=== PATIENT | male | born 1975 | race Caucasian/White ===

== ENCOUNTER 2021-03-16 05:48 | Day surgery (SDC) | payer BC ==
[2021-03-16] MEDS ORDERED: BUPIVACAINE 0.5% VIAL IJ ONE (06:36)
[2021-03-16] MEDS ORDERED: XYLOCAINE 1% HCL 20 ML MDV ONE (06:36)
[2021-03-16] MEDS ORDERED: Lactated Ringers 1,000 ML IV ONE (06:51)
[2021-03-16] MEDS ORDERED: Lactated Ringers 1,000 ML IV SCH (07:00)
[2021-03-16] MEDS ORDERED: CEFAZOLIN 2 GM-D5W BAG** 2 GM/50 ML ML IV ONE (07:55)
[2021-03-16 09:04] VITALS: BP 153/100; PULSE 71; O2SAT 98
--- NOTE | 2021-03-16 09:20 | XRAY ---
Indication: Right 2nd metatarsal osteotomy. Intraoperative fluoroscopy provided for 12 seconds. 3 digital spot images submitted for interpretation ultimately demonstrates osteotomy distal shaft 2nd metatarsal. Correlate with intraoperative findings/report.
--- NOTE | 2021-03-16 09:33 | XRAY ---
12 seconds fluoroscopy time in surgery for osteotomy of the second metatarsal.
--- NOTE | 2021-03-19 10:29 | OP ---
SURGERY DATE/TIME: 03/16/2021 0802 PREOPERATIVE DIAGNOSES: 1) Diabetic foot ulceration. 2) Chronic pressure ulceration stage II. 3) Venous insufficiency. 4) Localized edema. POSTOPERATIVE DIAGNOSES: 1) Diabetic foot ulceration. 2) Chronic pressure ulceration stage II. 3) Venous insufficiency. 4) Localized edema. PROCEDURES: 1) Second floating metatarsal osteotomy of the right foot. 2) Application of Unna boot right lower extremity. 3) Debridement to the level of the subcutaneous tissue less than 20 sq/cm surface area. SURGEON: Naveed Alfaro DPM. BUILDING TRADES INSTRUCTOR: None. ANESTHESIA: Local. HEMOSTASIS: Pressure dressing. ESTIMATED BLOOD LOSS: Less than 3 cc. MATERIALS: 3-0 Nylon and an Unna boot. INJECTABLES: 20 cc of 1:1 mixture of 1% lidocaine plain and 0.5% bupivacaine plain injected in a metatarsal block-type fashion to the second metatarsal. INDICATION FOR SURGERY: Yeyo is a very pleasant 45-year-old male who has been dealing with a diabetic foot ulceration for approximately over one year at this time. The patient has grown frustrated with conservative care. Secondary to his neuropathy he is able to keep the pressure off the front of his foot when ambulating as well as the elongated second metatarsal. The patient wished for more aggressive measures on return to my clinic after a year of treating this conservatively with variable results having closed down prison and then opening right back up within the subsequent months. The patient has grown frustrated with conservative care and wishes to proceed with a procedure that is a bit more aggressive than what we have tried in the past. The patient is neuropathic and wished to proceed so long as he can continue to work following the procedure which was amenable given the patient's circumstances. The patient understands all risks, benefits and complications of the procedure all of which were specifically discussed with him that there is an 85% chance in literature demonstrating wound healing following metatarsal osteotomies with submetatarsal as well as a 50% chance of the bone healing in the favored position. The patient understands all of the benefits and risks of the procedure and wishes to proceed. DESCRIPTION OF PROCEDURE AND FINDINGS: The patient is brought into the OR and placed on the OR table in the supine position. At this time attention is directed to the right lower extremity where 20 cc of a 1:1 mixture of 1% lidocaine plain and 0.5% bupivacaine plain injected in a second metatarsal block-type fashion. At this time, the right foot was then prepped and draped in the typical sterile fashion utilizing Betadine and the lower extremity was lowered onto the surgical field. At this time, attention was directed to the wound where predebridement the measurements were 1.2 x 2.0 x 0.4. A combination of 15 blade, curette and rongeurs were utilized to debride the ulceration on the plantar aspect of the second metatarsal of the right foot this was deemed to be adequate and free of any necrosis or infection at that time. Postoperative measurements were taken at that time demonstrating new measurements of 1.6 x 2.3 x 0.7. At this time, attention is directed to the dorsal aspect of the foot where fluoroscopy was utilized to identify the surgical neck of the second metatarsal. At this time, a stab incision was made and a sagittal saw was introduced at this time perpendicular to the longitudinal axis of the bone. Sagittal saw was utilized to make a cut through the surgical neck and this was tested by dorsiflexion and plantarflexion the second metatarsal head at the front of the foot, which was then mobilized. At this time, the surgical incision was then coapted utilizing 3-0 Nylon in a horizontal mattress-type fashion. The right foot was cleansed and a dressing consisting of Betadine, Adaptic, 4x4, Kerlix and Coban were applied to the right lower extremity. The patient was provided an Unna boot for ambulation prior to leaving the OR secondary to the patient's venous insufficiency and localized edema. The patient handled the procedure without complication and was returned to the same day surgery with vital signs stable and vascular status intact. The patient handled the procedure without complication and was returned to the same day surgery with vital signs stable and vascular status intact. Postoperative orders as indicated in the patient's discharge chart.
== END 2021-03-16 09:25 | disposition home or self-care (01) ==
LOC: SDC 05:48
PROVIDERS: ATTEND Podiatrist Foot & Ankle Surgery
DX: E11.621 Type 2 diabetes mellitus with foot ulcer (principal); L89.892 Pressure ulcer of other site, stage 2; I87.2 Venous insufficiency (chronic) (peripheral); R60.9 Edema, unspecified; Z79.899 Other long term (current) drug therapy; Z79.4 Long term (current) use of insulin
CPT/HCPCS: 11402; 28306; 29580; 73630; 76000; 82947; J0690

== ENCOUNTER 2021-06-13 09:13 | Day surgery (SDC) | payer BC ==
[2021-06-13] MEDS ORDERED: BUPIVACAINE 0.5% VIAL IJ ONE (10:45)
[2021-06-13] MEDS ORDERED: Lactated Ringers 1,000 ML IV ONE (11:17)
[2021-06-13] MEDS ORDERED: DIPRIVAN 200 MG/20 ML IV ONE ×2 (11:25→11:32)
--- NOTE | 2021-06-13 12:42 | XRAY ---
Indication: Bilateral L4-S1 MBB. Intraoperative fluoroscopy provided for 21 seconds. Single digital spot image submitted for interpretation demonstrates posterior needle tips projecting over the expected left and right L4-S1 nerve roots. Correlate with intraoperative findings/report.
--- NOTE | 2021-06-13 12:47 | XRAY ---
21 seconds fluoroscopy time ins surgery for bilateral L4-S1 MBB.
== END 2021-06-13 11:53 | disposition home or self-care (01) ==
LOC: SDC-PAIN 09:13
PROVIDERS: ATTEND Psychiatry & Neurology Pain Medicine
DX: M47.816 Spondylosis without myelopathy or radiculopathy, lumbar region (principal); E11.9 Type 2 diabetes mellitus without complications; I10 Essential (primary) hypertension; Z79.899 Other long term (current) drug therapy
CPT/HCPCS: 64493; 64494; 72020; 77002; 82947; J2704

== ENCOUNTER 2022-02-20 09:51 | Day surgery (SDC) | payer BC ==
[2022-02-20] MEDS ORDERED: BUPIVACAINE 0.5% VIAL IJ ONE (09:52)
[2022-02-20] MEDS ORDERED: DIPRIVAN 200 MG/20 ML IV ONE (11:38)
[2022-02-20] MEDS ORDERED: Ketamine HCl 50 MG/ML ONE (11:49)
[2022-02-20] MEDS ORDERED: Lactated Ringers 1,000 ML IV ONE (11:54)
--- NOTE | 2022-02-20 13:16 | XRAY ---
Indication: Bilateral L4-S1 MBB. Intraoperative fluoroscopy provided for 13 seconds. Single digital spot image submitted for interpretation demonstrates posterior needle tips projecting over the expected left and right L4-S1 nerve roots. Correlate with intraoperative findings/report.
--- NOTE | 2022-02-20 14:28 | XRAY ---
13 seconds of fluoroscopy was used in surgery for a bilateral L4-S1 MBB.
== END 2022-02-20 12:15 | disposition home or self-care (01) ==
LOC: SDC-PAIN 09:51
PROVIDERS: ATTEND Psychiatry & Neurology Pain Medicine
DX: M47.816 Spondylosis without myelopathy or radiculopathy, lumbar region (principal); E11.9 Type 2 diabetes mellitus without complications; Z79.899 Other long term (current) drug therapy
CPT/HCPCS: 64493; 64494; 72020; 77002; 82947; J2704

== ENCOUNTER 2022-03-21 08:23 | Day surgery (SDC) | payer BC ==
[2022-03-21] MEDS ORDERED: LIDOCAINE HCL 1% 50 MG/5 ML VL PF IJ ONE (08:24)
[2022-03-21] MEDS ORDERED: Depo-Medrol 40 MG/ML IM ONE (08:24)
[2022-03-21] MEDS ORDERED: BUPIVACAINE 0.5% VIAL IJ ONE (08:24)
[2022-03-21] MEDS ORDERED: DIPRIVAN 200 MG/20 ML IV ONE (09:46)
[2022-03-21] MEDS ORDERED: Lactated Ringers 1,000 ML IV ONE (10:30)
--- NOTE | 2022-03-21 11:57 | XRAY ---
Indication: Right L4-S1 RFA. Intraoperative fluoroscopy provided for 21 seconds. 4 digital spot image submitted for interpretation demonstrates posterior needle tips projecting over the expected right L4-S1 nerve roots. Correlate with intraoperative findings/report.
--- NOTE | 2022-03-21 12:40 | XRAY ---
21 seconds fluoroscopy time in surgery for right L4-S1 RFA.
== END 2022-03-21 10:15 | disposition home or self-care (01) ==
LOC: SDC-PAIN 08:23
PROVIDERS: ATTEND Psychiatry & Neurology Pain Medicine
DX: M47.816 Spondylosis without myelopathy or radiculopathy, lumbar region (principal); E11.9 Type 2 diabetes mellitus without complications; Z79.899 Other long term (current) drug therapy
CPT/HCPCS: 64635; 64636; 72100; 77002; 82947; J1030; J2001; J2704

== ENCOUNTER 2022-03-27 08:18 | Day surgery (SDC) | payer BC ==
[2022-03-27] MEDS ORDERED: DIPRIVAN 200 MG/20 ML IV ONE (09:51)
--- NOTE | 2022-03-27 10:34 | XRAY ---
Indication: Left L4-S1 RFA. Intraoperative fluoroscopy provided for 21 seconds. 3 digital spot image submitted for interpretation demonstrates posterior needle tips projecting over the expected left L4-S1 nerve roots. Correlate with intraoperative findings/report.
--- NOTE | 2022-03-27 10:46 | XRAY ---
21 seconds of fluoroscopy was used in surgery for a left L4-S1 RFA.
[2022-03-27] MEDS ORDERED: Lactated Ringers 1,000 ML IV ONE (12:50)
== END 2022-03-27 10:30 | disposition home or self-care (01) ==
LOC: SDC-PAIN 08:18
PROVIDERS: ATTEND Psychiatry & Neurology Pain Medicine
DX: M47.816 Spondylosis without myelopathy or radiculopathy, lumbar region (principal); E11.9 Type 2 diabetes mellitus without complications; Z79.899 Other long term (current) drug therapy
CPT/HCPCS: 64635; 64636; 72100; 77002; 82947; J2704

== ENCOUNTER 2022-11-03 17:58 | Inpatient (IN) | payer BC ==
[2022-11-03] MEDS ORDERED: Sodium Chloride 0.9% 1000 ML 1,000 ML IV STA (19:22)
[2022-11-03] MEDS ORDERED: Sodium Chloride 0.9% 1000 ML 1,000 ML ONE (19:29)
[2022-11-03] MEDS: TYLENOL EXTRA STRENGTH 500 MG PO PRN (19:32)
[2022-11-03 19:45] LABS: Appearance Clear (Clear); Bacteria None Seen /HPF (None Seen); Bilirubin Negative (Negative); Blood Negative (Negative); Epithelial Cells None Seen /HPF (None Seen); Glucose, Urine >=1000 mg/dL (Negative); Hyaline Casts NONE SEEN /LPF (0-2); Ketones Negative (Negative); Leukocyte Esterase Negative (Negative); Nitrite Negative (Negative); Ph 5.5 (4.6-8.0); Protein,Urine Dip Negative (Negative); RBC 0-2 /HPF (0-5); Specific Gravity 1.025 (1.005-1.030); Urobilinogen 0.2 mg/dL (0.2); WBC 0-2 /HPF (0-5)
[2022-11-03 20:08] LABS: BASOPHIL % 0.5 % (0.0-0.4); Basophil (Absolute #) 0.08 x10^3/uL (0-0.4); Eosinophil (Absolute #) 0 x10^3/uL (0-0.5); Hematocrit 52.3 % (42-50); Hemoglobin 16.7 g/dL (12.5-18.0); IMMATURE GRAN # 0.05 x10^3u/L (0.00-0.03); IMMATURE GRAN % 0.3 % (0.00-0.4); Lymphocyte (Absolute #) 0.79 x10^3/uL (1.0-4.6); Lymphocytes % 4.7 % (24.0-44.0); Mean Cell Volume 87.3 fL (78-100); Mean Corpuscular Hemoglobin 27.9 pg (26-32); Mean Corpuscular Hgb Concent. 31.9 g/dL (32-36); Mean Platelet Volume 10.4 fL (7.5-11.0); Monocyte (Absolute #) 1.03 x10^3/uL (0.0-1.3); Monocytes % 6.2 % (0.0-12.0); Neutrophil % 88.3 % (36.0-66.0); Platelet Count 216 x10^3/uL (150-450); Red Blood Count 5.99 x10^6/uL (4.1-5.6); Red Cell Distribution Width 14.3 % (11.5-14.0); White Blood Count 16.7 x10^3/uL (4.0-10.5)
[2022-11-03 20:11] LABS: ADD URINE CULTURE? NO (NO)
--- NOTE | 2022-11-03 20:11 | ERPHSYRPT ---
- History of Present Illness Time Seen by Provider: 11/03/22 19:32 Source: patient Exam Limitations: no limitations Patient Subjective Stated Complaint: Fever Triage Nursing Assessment: Patient ambulated back to ED and transferred self to bed. Patient A+O X3. Patient's skin flushed, hot and dry. Patient complains of fever, headache and alexy leg/feet pain that started this am. Patient complains of headache and alexy leg/feet pain 10/10. Patient's RLE noted to be red, warm and swollen. Patient was recently treated with cellulitis. Physician History: 47 years old male with history of diabetes mellitus, diabetic ulcer right big toe under care of podiatry here, was recently treated for cellulitis presented in the ER with increasing redness and swelling with pain right lower extremity for last couple of days and today started to have a fever. Patient reports moderate to severe sharp pain right leg with no significant relieving factors and aggravated with palpation and movements. Does report generalized weakness f atigue and tiredness. Quality: painful Severity: severe Associated Symptoms: fever, rash, swelling/mass/lumps Allergies/Adverse Reactions: morphine Adverse Reaction (Severe, Verified 11/03/22 19:06) aggressive/angry Home Medications: Atenolol 50 mg [Tenormin 50 mg] 50 mg PO DAILY 03/15/21 [History] Insulin Aspart (Niacinamide) [Fiasp 100 Unit/ml Flextouch] 52 unit SQ BID 03/15/21 [History] Insulin Glargine,Hum.rec.anlog [Basaglar Kwikpen U-100] 60 unit SQ HS 03/15/21 [History] Insulin Glargine,Hum.rec.anlog [Basaglar Kwikpen U-100] 70 unit SQ BREAKFAST [History] Losartan/Hydrochlorothiazide [Losartan-Hctz 50-12.5 mg Tab] 1 each PO DAILY 03/15/21 [History] Hx Influenza Vaccination/Date Given: No Hx Pneumococcal Vaccination/Date Given: No Immunizations Up to Date: Yes Travel Risk - International Travel Have you traveled outside of the country in past 3 weeks: No - Coronavirus Screening Are you exhibiting any of the following symptoms?: No Close contact with a COVID-19 positive Pt in past 14-21 Days: No - Vaccine Status Have you recieved a Covid-19 vaccination: No - Review of Systems Constitutional: Fever, Chills, Fatigue, Weakness Eyes: No Symptoms Ears, Nose, & Throat: No Symptoms Respiratory: No Symptoms Cardiac: No Symptoms Abdominal/Gastrointestinal: No Symptoms Genitourinary Symptoms: No Symptoms Musculoskeletal: Arthralgias Skin: Cellulitis, Rash, Skin Lesions Neurological: Headache Psychological: No Symptoms Hematologic/Lymphatic: No Symptoms Immunological/Allergic: No Symptoms - Past Medical History Pertinent Past Medical History: Yes Neurological History: No Pertinent History ENT History: No Pertinent History Cardiac History: Hypertension Respiratory History: Sleep Apnea Endocrine Medical History: Diabetes Type I Musculoskeletal History: Degenerative Disk Disease, Other GI Medical History: No Pertinent History History: No Pertinent History Psycho-Social History: No Pertinent History Male Reproductive Disorders: No Pertinent History Other Medical History: SX HX: BACK SURGERY - ABLATION IN LOWER BACK (VIA PAIN [facility] DR. BILLS) - Past Surgical History Past Surgical History: Yes Neuro Surgical History: No Pertinent History Cardiac: No Pertinent History Respiratory: No Pertinent History Gastrointestinal: Hernia Repair Genitourinary: Other Musculoskeletal: No Pertinent History Male Surgical History: Vasectomy Other Surgical History: lithotripsy,kidney stones removal - Social History Smoking Status: Former smoker Exposure to second hand smoke: No Drug Use: none Patient Lives Alone: No - Nursing Vital Signs Nursing Vital Signs: Initial Vital Signs Temperature 102.4 F 11/03/22 19:07 Pulse Rate 123 H 11/03/22 19:07 Respiratory Rate 20 11/03/22 19:07 Blood Pressure 140/75 11/03/22 19:07 O2 Sat by Pulse Oximetry 97 11/03/22 19:07 Pain Scale Pain Intensity 4 - Physical Exam General Appearance: no apparent distress, alert Eye Exam: PERRL/EOMI Ears, Nose, Throat Exam: normal ENT inspection Neck Exam: normal inspection, full range of motion Respiratory Exam: normal breath sounds, lungs clear Cardiovascular Exam: normal heart sounds, tachycardia Gastrointestinal/Abdomen Exam: soft, normal bowel sounds, No tenderness Back Exam: normal inspection, normal range of motion Extremity Exam: normal range of motion, inflammation (Diffuse swelling right ankle to knee. Warm and tender. 2 x 2 cm nonhealing diabetic ulcer at plantar aspect of big toe.Swelling is more on the anterior aspect. No tightness or excruciating pain in the calf.), swelling Skin Exam: normal color SpO2 Interpretation: normal SpO2: 97 O2 Delivery: Room Air - Course EKG Interpreted by Me: RATE, Sinus Tach, NORMAL AXIS, NORMAL INTERVALS, Non- specific ST Changes Ordered Tests: Active Orders 24 hr Category Date Time Status EKG-ER Only STAT Care 11/03/22 19:24 Active IV Insertion STAT Care 11/03/22 19:24 Active CHEST 1 VIEW (PORTABLE) Stat Exams 11/03/22 19:22 Taken VENOUS UNILAT/LIMITED EXTREMIT [US] Stat Exams 11/03/22 20:31 Taken BLOOD CULTURE Stat Lab 11/03/22 19:18 Received CBC W DIFF Stat Lab 11/03/22 19:18 Completed CMP Stat Lab 11/03/22 19:18 Completed Lactic Acid Stat Lab 11/03/22 19:45 Completed PROCALCITONIN Stat Lab 11/03/22 19:18 Completed TROPONIN Q4H Lab 11/03/22 19:18 Completed TROPONIN Q4H Lab 11/03/22 22:03 Completed UA W/RFX UR CULTURE Stat Lab 11/03/22 19:25 Completed Medication Summary Generic Name Dose Route Start Last Admin Trade Name Freq PRN Reason Stop Dose Admin Acetaminophen 1,000 mg 11/03/22 19:22 11/03/22 19:32 Acetaminophen 500 Mg Tablet PO 12/03/22 19:21 1,000 mg Q4H PRN PRN Administration HEADACHE Discontinued Medications Generic Name Dose Route Start Last Admin Trade Name Freq PRN Reason Stop Dose Admin Hydromorphone HCl 1 mg 11/03/22 21:33 11/03/22 22:24 Hydromorphone 1 Mg/1ml Inj IV 11/03/22 21:34 1 mg STAT ONE Administration Hydromorphone HCl Confirm 11/03/22 22:19 Hydromorphone 1 Mg/1ml Inj Administered 11/03/22 22:20 Dose 1 mg .ROUTE .STK-MED ONE Sodium Chloride 1,000 mls @ 999 mls/hr 11/03/22 19:22 11/03/22 21:20 Sodium Chloride 0.9% 1000 Ml IV 11/03/22 20:22 Infused .Q1H1M STA Infusion Sodium Chloride Confirm 11/03/22 19:29 Sodium Chloride 0.9% 1000 Ml Administered 11/03/22 19:30 Dose 1,000 mls @ ud .ROUTE .STK-MED ONE Piperacillin Sod/Tazobactam 100 mls @ 200 mls/hr 11/03/22 21:32 11/03/22 22:24 Sod 3.375 gm/ Sodium Chloride IV 11/03/22 22:01 200 mls/hr STAT ONE Administration Clindamycin HCl/Dextrose 600 mg in 50 mls @ 100 mls/hr 11/03/22 21:34 Clindamycin-D5w 600 Mg/50 Ml IV 11/03/22 22:03 STAT STA Sodium Chloride Confirm 11/03/22 22:20 Sodium Chloride 100ml Mini-Bag Plus Administered 11/03/22 22:21 Dose 100 mls @ ud IV .STK-MED ONE Ketorolac Tromethamine 30 mg 11/03/22 22:23 11/03/22 22:25 Ketorolac Tromethamine 30 Mg/Ml Inj IV 11/03/22 22:24 30 mg STAT ONE Administration Ketorolac Tromethamine Confirm 11/03/22 22:24 Ketorolac Tromethamine 30 Mg/Ml Inj Administered 11/03/22 22:25 Dose 30 mg .ROUTE .STK-MED ONE Ondansetron HCl 4 mg 11/03/22 21:33 11/03/22 22:23 Ondansetron Hcl 4 Mg/2 Ml Vial IV 11/03/22 21:34 4 mg STAT ONE Administration Ondansetron HCl Confirm 11/03/22 22:18 Ondansetron Hcl 4 Mg/2 Ml Vial Administered 11/03/22 22:19 Dose 4 mg .ROUTE .STK-MED ONE Piperacillin Sod/Tazobactam Sod Confirm 11/03/22 22:19 Piperacillin/Tazobactam Sodium 3.375 Gm Vial Administered 11/03/22 22:20 Dose 3.375 gm IV .STK-MED ONE Lab/Rad Data: Laboratory Result Diagrams 11/03/22 19:18 11/03/22 19:18 Laboratory Results 11/03/22 11/03/22 11/03/22 Range/Units 22:03 19:45 19:25 WBC (4.0-10.5) x10^3/uL RBC (4.1-5.6) x10^6/uL Hgb (12.5-18.0) g/dL Hct (42-50) % MCV (78-100) fL MCH (26-32) pg MCHC (32-36) g/dL RDW (11.5-14.0) % Plt Count (150-450) x10^3/uL MPV (7.5-11.0) fL Gran % (36.0-66.0) % Immature Gran % (Auto) (0.00-0.4) % Nucleat RBC Rel Count (0.00-0.1) % Eos # (Auto) (0-0.5) x10^3/uL Immature Gran # (Auto) (0.00-0.03) x10^3u/L Absolute Lymphs (auto) (1.0-4.6) x10^3/uL Absolute Monos (auto) (0.0-1.3) x10^3/uL Absolute Nucleated RBC (0.00-0.01) x10^3u/L Lymphocytes % (24.0-44.0) % Monocytes % (0.0-12.0) % Eosinophils % (0.00-5.0) % Basophils % (0.0-0.4) % Absolute Granulocytes (1.4-6.9) x10^3/uL Basophils # (0-0.4) x10^3/uL Sodium (137-145) mmol/L Potassium (3.5-5.1) mmol/L Chloride (98-107) mmol/L Carbon Dioxide (22-30) mmol/L Anion Gap (5-15) MEQ/L BUN (9-20) mg/dL Creatinine (0.66-1.25) mg/dL Estimated GFR ML/MIN Glucose (74-106) mg/dL Lactic Acid 2.1 H (0.4-2.0) Calcium (8.4-10.2) mg/dL Total Bilirubin (0.2-1.3) mg/dL AST (17-59) U/L ALT (0-50) U/L Alkaline Phosphatase (38-126) U/L Troponin I < 0.012 (0.000-0.034) ng/mL Serum Total Protein (6.3-8.2) g/dL Albumin (3.5-5.0) g/dL Procalcitonin (0.030-0.080) ng/mL Urine Color Yellow (Yellow) Urine Appearance Clear (Clear) Urine pH 5.5 (4.6-8.0) Ur Specific [place] 1.025 (1.005-1.030) Urine Protein Negative (Negative) Urine Glucose (UA) >=1000 A (Negative) mg/dL Urine Ketones Negative (Negative) Urine Blood Negative (Negative) Urine Nitrite Negative (Negative) Urine Bilirubin Negative (Negative) Urine Urobilinogen 0.2 (0.2) mg/dL Ur Leukocyte Esterase Negative (Negative) U Hyaline Cast (Auto) NONE SEEN (0-2) /LPF Urine Microscopic RBC 0-2 (0-5) /HPF Urine Microscopic WBC 0-2 (0-5) /HPF Ur Epithelial Cells None Seen (None Seen) /HPF Urine Bacteria None Seen (None Seen) /HPF Urine Culture Reflexed NO (NO) 11/03/22 11/03/22 11/03/22 Range/Units 19:18 19:18 19:18 WBC 16.7 H (4.0-10.5) x10^3/uL RBC 5.99 H (4.1-5.6) x10^6/uL Hgb 16.7 (12.5-18.0) g/dL Hct 52.3 H (42-50) % MCV 87.3 (78-100) fL MCH 27.9 (26-32) pg MCHC 31.9 L (32-36) g/dL RDW 14.3 H (11.5-14.0) % Plt Count 216 (150-450) x10^3/uL MPV 10.4 (7.5-11.0) fL Gran % 88.3 H (36.0-66.0) % Immature Gran % (Auto) 0.3 (0.00-0.4) % Nucleat RBC Rel Count 0.0 (0.00-0.1) % Eos # (Auto) 0 (0-0.5) x10^3/uL Immature Gran # (Auto) 0.05 H (0.00-0.03) x10^3u/L Absolute Lymphs (auto) 0.79 L (1.0-4.6) x10^3/uL Absolute Monos (auto) 1.03 (0.0-1.3) x10^3/uL Absolute Nucleated RBC 0.00 (0.00-0.01) x10^3u/L Lymphocytes % 4.7 L (24.0-44.0) % Monocytes % 6.2 (0.0-12.0) % Eosinophils % 0.0 (0.00-5.0) % Basophils % 0.5 (0.0-0.4) % Absolute Granulocytes 14.70 H (1.4-6.9) x10^3/uL Basophils # 0.08 (0-0.4) x10^3/uL Sodium 137 (137-145) mmol/L Potassium 4.1 (3.5-5.1) mmol/L Chloride 97 L (98-107) mmol/L Carbon Dioxide 25 (22-30) mmol/L Anion Gap 19.3 H (5-15) MEQ/L BUN 20 (9-20) mg/dL Creatinine 1.50 H (0.66-1.25) mg/dL Estimated GFR 53.5 ML/MIN Glucose 212 H (74-106) mg/dL Lactic Acid (0.4-2.0) Calcium 9.8 (8.4-10.2) mg/dL Total Bilirubin 0.80 (0.2-1.3) mg/dL AST 37 (17-59) U/L ALT 47 (0-50) U/L Alkaline Phosphatase 76 (38-126) U/L Troponin I < 0.012 (0.000-0.034) ng/mL Serum Total Protein 9.3 H (6.3-8.2) g/dL Albumin 4.6 (3.5-5.0) g/dL Procalcitonin 0.252 H (0.030-0.080) ng/mL Urine Color (Yellow) Urine Appearance (Clear) Urine pH (4.6-8.0) Ur Specific [place] (1.005-1.030) Urine Protein (Negative) Urine Glucose (UA) (Negative) mg/dL Urine Ketones (Negative) Urine Blood (Negative) Urine Nitrite (Negative) Urine Bilirubin (Negative) Urine Urobilinogen (0.2) mg/dL Ur Leukocyte Esterase (Negative) U Hyaline Cast (Auto) (0-2) /LPF Urine Microscopic RBC (0-5) /HPF Urine Microscopic WBC (0-5) /HPF Ur Epithelial Cells (None Seen) /HPF Urine Bacteria (None Seen) /HPF Urine Culture Reflexed (NO) - Progress Progress: improved, pain not gone completely Progress Note: 11/03/22 20:10 47 years old male with history of diabetes mellitus, diabetic ulcer right big toe under care of podiatry here, was recently treated for cellulitis presented in the ER with increasing redness and swelling with pain right lower extremity for last couple of days and today started to have a fever. Patient reports moderate to severe sharp pain right leg with no significant relieving factors and aggravated with palpation and movements. Does report generalized weakness fatigue and tiredness. Given symptomatic treatment along with fluids. I believe patient has cellulit is. Will rule out DVT. Started on broad-spectrum antibiotics. 11/03/22 22:52 Patient work-up showed white count of 16, lactate of 2.1 with procalcitonin of 1.25. Ruled out DVT per preliminary report, official report is pending. Has mild worsening of renal function with a baseline around 1.0 and today is 1.5. We will continue with hydration. Patient still have temperature of 101 on repeated evaluation after Tylenol and will give one-time dose of Toradol to bring it down. I have discussed with Dr. Samson at 10:50 PM, reviewed history, work-up, agreed with admission. I have discussed the results of work-up with patient and family who understand and agree with it. Discussed with Dr.: Other Will see patient in: hospital (observation) Counseled pt/family regarding: lab results, diagnosis, rad results Medical Desision Making - Independent Historian Additional History obtained from: Spouse - Discussion of managment Care discussed with:: hospitalist (Dr. Hernandez [id number]) Reviewed:: Test results Agreed on:: Treatment plan, place in obs Will see patient: in hospital - Diagnostic Testing Diagnostic test were ordered, analyzed, and reviewed by me: Yes Radiological Interpretation: Interpreted by me, Reviewed by me - Risk of complications The pt has a high risk of morbidity or mortality based on: Decision regarding hospitilization or escalation of hosp level of care - Departure Departure Disposition: Observation Clinical Impression: Cellulitis of right lower extremity, Diabetic ulcer of foot associated with diabetes mellitus due to underlying condition, limited to breakdown of skin, Sepsis, FOREST (acute kidney injury) Condition: Stable Critical Care Time: No Referrals: LISBETH PARK MD [Primary Care Provider] - Follow up/PCP as directed
[2022-11-03 20:39] LABS: ALBUMIN 4.6 g/dL (3.5-5.0); ANION GAP 19.3 MEQ/L (5-15); BILIRUBIN,TOTAL 0.8 mg/dL (0.2-1.3); Calcium 9.8 mg/dL (8.4-10.2); Creatinine 1 1.5 mg/dL (0.66-1.25); EST GLOMERULAR FILTRATION RATE 53.5 ML/MIN; PROCALCITONIN 0.252 ng/mL (0.030-0.080); Potassium 4.1 mmol/L (3.5-5.1); Total Protein 9.3 g/dL (6.3-8.2)
[2022-11-03] MEDS ORDERED: PIPERACILLIN/TAZOBACTAM 3.375 GM in Sodium Chloride 100ML MINI-BAG PLUS 100 ML IV ONE (21:32)
[2022-11-03] MEDS ORDERED: Hydromorphone 1 mg/ml Injection IV ONE (21:33)
[2022-11-03] MEDS ORDERED: Zofran 4 MG/2 ML VIAL IV ONE (21:33)
[2022-11-03] MEDS ORDERED: CLINDAMYCIN-D5W 600 MG/50 ML*** 600 MG/50 ML BAG IV STA (21:34)
[2022-11-03] MEDS ORDERED: Zofran 4 MG/2 ML VIAL ONE (22:18)
[2022-11-03] MEDS ORDERED: PIPERACILLIN/TAZOBACTAM IV ONE (22:19)
[2022-11-03] MEDS ORDERED: Hydromorphone 1 mg/ml Injection ONE (22:19)
[2022-11-03] MEDS ORDERED: Sodium Chloride 100ML MINI-BAG PLUS 100 ML IV ONE (22:20)
[2022-11-03] MEDS ORDERED: TORAdol 30 mg Injection IV ONE (22:23)
[2022-11-03] MEDS ORDERED: TORAdol 30 mg Injection ONE (22:24)
[2022-11-03] MEDS ORDERED: CLINDAMYCIN-D5W 600 MG/50 ML*** 600 MG/50 ML BAG IV ONE (23:45)
[2022-11-04] MEDS ORDERED: Sodium Chloride 0.9% 1000 ML 1,000 ML IV SCH (00:36)
[2022-11-04] MEDS ORDERED: DUONEB 0.5-3 MG/3 ml Neb IH PRN (00:36)
[2022-11-04] MEDS ORDERED: Zofran 4 MG/2 ML VIAL IV PRN (00:36)
[2022-11-04] MEDS ORDERED: TYLENOL 325 MG PO PRN (00:36)
[2022-11-04] MEDS ORDERED: VANCOMYCIN 1.5 GRAM/300 ML BAG 1.5 GM/300 ML PIGGYBACK IV ONE (02:00)
[2022-11-04] MEDS ORDERED: VANCOCIN INJECTION*** 1 GM in Sodium Chloride 0.9% 250 ML 250 ML IV SCH (02:00)
[2022-11-04] MEDS ORDERED: APRESOLINE 20 MG/ML INJ IV PRN (02:10)
--- NOTE | 2022-11-04 02:19 | PCM.HP ---
History of Present Illness - Chief Complaint Chief Complaint: Cellulitis right lower extremity, he FOREST, sepsis Date: 11/04/22 History of Present Illness: This is a 47-year-old male admitted for treatment of cellulitis. He has past medical history of hypertension, morbid obesity, EARL on NIV, diabetes, diabetic ulcer of his right great toe followed by podiatry for which he receives weekly debridements. He presented to the ED this evening for evaluation of increasing redness and swelling and pain in the right lower extremity with associated fever that was present when he woke up this morning. . On arrival he was febrile 102.4, heart rate 123, blood pressure 140/75. Labs significant for WBC 16, hemoglobin 16, platelets 216, creatinine 1.5 (1.May) UA positive for greater than 1000 glucose procalcitonin 0.252. Preliminary report for lower extremity Doppler was negative. He was given Dilaudid, 1 L crystalloid, Zosyn, clindamycin. - Review of Systems Constitutional: Fever Eyes: No Symptoms Ears, Nose, & Throat: No Symptoms Respiratory: No Symptoms Cardiac: No Symptoms Abdominal/Gastrointestinal: No Symptoms Genitourinary Symptoms: No Symptoms Musculoskeletal: No Symptoms Skin: Cellulitis Neurological: No Symptoms Endocrine: No Symptoms Medications & Allergies Home Medications: Home Medication List Insulin Aspart (Niacinamide) [Fiasp 100 Unit/ml Flextouch] 70 unit SQ BID 03/15/21 [History Confirmed 11/04/22] Dapagliflozin/Metformin HCl [Xigduo Xr 5 mg-1,000 mg Tablet] 1 each PO DAILY 11/04/22 [History Confirmed 11/04/22] Fexofenadine HCl 180 mg PO DAILY 11/04/22 [History Confirmed 11/04/22] Insulin Glargine,Hum.rec.anlog [Basaglar Kwikpen U-100] 100 units SQ BID 11/04/22 [History Confirmed 11/04/22] Losartan/Hydrochlorothiazide [Losartan-Hctz 100-25 mg Tab] 1 each PO DAILY 11/04/22 [History Confirmed 11/04/22] Meloxicam 15 mg [Meloxicam 15 MG] 15 mg PO DAILY 11/04/22 [History Confirmed 11/04/22] Metoprolol Tartrate 50 mg [Lopressor 50 MG] 100 mg PO DAILY 11/04/22 [History Confirmed 11/04/22] Allergies/Adverse Reactions: Allergies Allergy/AdvReac Type Severity Reaction Status Date / Time morphine AdvReac Severe aggressive/ Verified 11/03/22 19:06 angry - Past Medical History Past Medical History: Yes Neurological History: No Pertinent History ENT History: No Pertinent History Cardiac History: Hypertension Respiratory History: Sleep Apnea Endocrine Medical History: Diabetes Type I Musculoskelatal History: Degenerative Disk Disease, Other GI Medical History: No Pertinent History History: No Pertinent History Pyscho-Social History: No Pertinent History Male Reproductive Disorders: No Pertinent History Comment: SX HX: BACK SURGERY - ABLATION IN LOWER BACK (VIA PAIN [facility] DR. BILLS) - Past Surgical History Past Surgical History: Yes Neuro Surgical History: No Pertinent History Cardiac History: No Pertinent History Respiratory Surgery: No Pertinent History GI Surgical History: Hernia Repair Genitourinary Surgical Hx: Other Musculskeletal Surgical Hx: No Pertinent History Male Surgical History: Vasectomy Other Surgical History: lithotripsy,kidney stones removal - Social History Smoking Status: Former smoker Exposure to second hand smoke: No Alcohol: None Drug Use: none - Physical Exam Vital Signs: Vital Signs - 24 hr Temp Pulse Resp BP BP Pulse Ox 11/04/22 00:46 98.7 F 92 H 20 133/80 94 L 11/04/22 00:00 90 23 94 L 11/03/22 23:50 95 H 21 93 L 11/03/22 23:40 102 H 17 94 L 11/03/22 23:30 98 H 17 92 L 11/03/22 23:20 105 H 22 94 L 11/03/22 23:10 108 H 22 95 11/03/22 23:01 112 H 22 94 L 11/03/22 22:56 97 11/03/22 21:00 113 H 17 120/73 93 L 11/03/22 19:07 102.4 F 123 H 20 140/75 97 General Appearance: no apparent distress Neurologic Exam: alert, oriented x 3 Eye Exam: PERRL/EOMI Ears, Nose, Throat Exam: normal ENT inspection Neck Exam: normal inspection Respiratory Exam: normal breath sounds Cardiovascular Exam: regular rate/rhythm Gastrointestinal/Abdomen Exam: soft, normal bowel sounds Extremity Exam: inflammation (Rirhgt great toe ulcer, no purulence. Erythema over forde and lateral lower extremity), swelling Skin Exam: warm, dry Results - Labs Lab/Micro Results: Lab Results-Last 24 Hours 11/03/22 11/03/22 11/03/22 Range/Units 19:18 19:18 19:18 WBC 16.7 H (4.0-10.5) x10^3/uL RBC 5.99 H (4.1-5.6) x10^6/uL Hgb 16.7 (12.5-18.0) g/dL Hct 52.3 H (42-50) % MCV 87.3 (78-100) fL MCH 27.9 (26-32) pg MCHC 31.9 L (32-36) g/dL RDW 14.3 H (11.5-14.0) % Plt Count 216 (150-450) x10^3/uL MPV 10.4 (7.5-11.0) fL Gran % 88.3 H (36.0-66.0) % Immature Gran % (Auto) 0.3 (0.00-0.4) % Nucleat RBC Rel Count 0.0 (0.00-0.1) % Eos # (Auto) 0 (0-0.5) x10^3/uL Immature Gran # (Auto) 0.05 H (0.00-0.03) x10^3u/L Absolute Lymphs (auto) 0.79 L (1.0-4.6) x10^3/uL Absolute Monos (auto) 1.03 (0.0-1.3) x10^3/uL Absolute Nucleated RBC 0.00 (0.00-0.01) x10^3u/L Lymphocytes % 4.7 L (24.0-44.0) % Monocytes % 6.2 (0.0-12.0) % Eosinophils % 0.0 (0.00-5.0) % Basophils % 0.5 (0.0-0.4) % Absolute Granulocytes 14.70 H (1.4-6.9) x10^3/uL Basophils # 0.08 (0-0.4) x10^3/uL Sodium 137 (137-145) mmol/L Potassium 4.1 (3.5-5.1) mmol/L Chloride 97 L (98-107) mmol/L Carbon Dioxide 25 (22-30) mmol/L Anion Gap 19.3 H (5-15) MEQ/L BUN 20 (9-20) mg/dL Creatinine 1.50 H (0.66-1.25) mg/dL Estimated GFR 53.5 ML/MIN Glucose 212 H (74-106) mg/dL Lactic Acid (0.4-2.0) Calcium 9.8 (8.4-10.2) mg/dL Total Bilirubin 0.80 (0.2-1.3) mg/dL AST 37 (17-59) U/L ALT 47 (0-50) U/L Alkaline Phosphatase 76 (38-126) U/L Troponin I < 0.012 (0.000-0.034) ng/mL Serum Total Protein 9.3 H (6.3-8.2) g/dL Albumin 4.6 (3.5-5.0) g/dL Procalcitonin 0.252 H (0.030-0.080) ng/mL Urine Color (Yellow) Urine Appearance (Clear) Urine pH (4.6-8.0) Ur Specific [place] (1.005-1.030) Urine Protein (Negative) Urine Glucose (UA) (Negative) mg/dL Urine Ketones (Negative) Urine Blood (Negative) Urine Nitrite (Negative) Urine Bilirubin (Negative) Urine Urobilinogen (0.2) mg/dL Ur Leukocyte Esterase (Negative) U Hyaline Cast (Auto) (0-2) /LPF Urine Microscopic RBC (0-5) /HPF Urine Microscopic WBC (0-5) /HPF Ur Epithelial Cells (None Seen) /HPF Urine Bacteria (None Seen) /HPF Urine Culture Reflexed (NO) 11/03/22 11/03/22 11/03/22 Range/Units 19:25 19:45 22:03 WBC (4.0-10.5) x10^3/uL RBC (4.1-5.6) x10^6/uL Hgb (12.5-18.0) g/dL Hct (42-50) % MCV (78-100) fL MCH (26-32) pg MCHC (32-36) g/dL RDW (11.5-14.0) % Plt Count (150-450) x10^3/uL MPV (7.5-11.0) fL Gran % (36.0-66.0) % Immature Gran % (Auto) (0.00-0.4) % Nucleat RBC Rel Count (0.00-0.1) % Eos # (Auto) (0-0.5) x10^3/uL Immature Gran # (Auto) (0.00-0.03) x10^3u/L Absolute Lymphs (auto) (1.0-4.6) x10^3/uL Absolute Monos (auto) (0.0-1.3) x10^3/uL Absolute Nucleated RBC (0.00-0.01) x10^3u/L Lymphocytes % (24.0-44.0) % Monocytes % (0.0-12.0) % Eosinophils % (0.00-5.0) % Basophils % (0.0-0.4) % Absolute Granulocytes (1.4-6.9) x10^3/uL Basophils # (0-0.4) x10^3/uL Sodium (137-145) mmol/L Potassium (3.5-5.1) mmol/L Chloride (98-107) mmol/L Carbon Dioxide (22-30) mmol/L Anion Gap (5-15) MEQ/L BUN (9-20) mg/dL Creatinine (0.66-1.25) mg/dL Estimated GFR ML/MIN Glucose (74-106) mg/dL Lactic Acid 2.1 H (0.4-2.0) Calcium (8.4-10.2) mg/dL Total Bilirubin (0.2-1.3) mg/dL AST (17-59) U/L ALT (0-50) U/L Alkaline Phosphatase (38-126) U/L Troponin I < 0.012 (0.000-0.034) ng/mL Serum Total Protein (6.3-8.2) g/dL Albumin (3.5-5.0) g/dL Procalcitonin (0.030-0.080) ng/mL Urine Color Yellow (Yellow) Urine Appearance Clear (Clear) Urine pH 5.5 (4.6-8.0) Ur Specific [place] 1.025 (1.005-1.030) Urine Protein Negative (Negative) Urine Glucose (UA) >=1000 A (Negative) mg/dL Urine Ketones Negative (Negative) Urine Blood Negative (Negative) Urine Nitrite Negative (Negative) Urine Bilirubin Negative (Negative) Urine Urobilinogen 0.2 (0.2) mg/dL Ur Leukocyte Esterase Negative (Negative) U Hyaline Cast (Auto) NONE SEEN (0-2) /LPF Urine Microscopic RBC 0-2 (0-5) /HPF Urine Microscopic WBC 0-2 (0-5) /HPF Ur Epithelial Cells None Seen (None Seen) /HPF Urine Bacteria None Seen (None Seen) /HPF Urine Culture Reflexed NO (NO) - Radiology Impressions Radiology Exams & Impressions: Radiology Procedures Category Date Time Status CHEST 1 VIEW (PORTABLE) Stat Exams 11/03/22 19:22 Taken VENOUS UNILAT/LIMITED EXTREMIT [US] Stat Exams 11/03/22 20:31 Taken - Other Procedures and Tests Respiratory Therapy 11/04/22 02:11 BiPap/CPAP QHS Assessment/Plan (1) FOREST (acute kidney injury) Current Visit: Yes Status: Acute Code(s): N17.9 - ACUTE KIDNEY FAILURE, UNSPECIFIED (2) Cellulitis of right lower extremity Current Visit: Yes Status: Acute Code(s): L03.115 - CELLULITIS OF RIGHT LOWER LIMB (3) Sepsis Current Visit: Yes Status: Acute Assessment & Plan: Assessment #Sepsis #Right lower extremity cellulitis #Right great toe diabetic ulcer #Diabetes #Acute kidney injury PLAN -Broad-spectrum antibiotics with -IV fluid resuscitation -Follow renal panel and urine output -Follow cultures -Consider podiatry consult in a.m. -Continue Home insulin regment -Hold ARB/Diuretic/Metformin Diet: Diabetic Prophylaxis: Lovenox Entire encounter performed via telemedicine Telemedicine Encounter - Telemedicine Encounter Telemedicine Encounter: The entirety of this encounter was performed via Telemedicine"
[2022-11-04] MEDS: PIPERACILLIN/TAZOBACTAM 3.375 GM in Sodium Chloride 100ML MINI-BAG PLUS 100 ML IV SCH ×4 (02:44→17:35)
[2022-11-04] MEDS ORDERED: PIPERACILLIN/TAZOBACTAM IV ONE (05:06)
[2022-11-04] MEDS ORDERED: Sodium Chloride 100ML MINI-BAG PLUS 100 ML IV ONE (05:07)
[2022-11-04] MEDS ORDERED: PHARMACY DOSING REQUIRED: VANCOMYCIN IV STA (05:12)
[2022-11-04 05:16] LABS: Absolute Neutrophil Ct (ANC) 10.02 x10^3/uL (1.4-6.9); BASOPHIL % 0.5 % (0.0-0.4); Basophil (Absolute #) 0.06 x10^3/uL (0-0.4); Eosinophil % 0.1 % (0.00-5.0); Eosinophil (Absolute #) 0.01 x10^3/uL (0-0.5); Hematocrit 50.5 % (42-50); Hemoglobin 15.7 g/dL (12.5-18.0); IMMATURE GRAN # 0.06 x10^3u/L (0.00-0.03); IMMATURE GRAN % 0.5 % (0.00-0.4); Lymphocyte (Absolute #) 1.12 x10^3/uL (1.0-4.6); Lymphocytes % 9.1 % (24.0-44.0); Mean Cell Volume 88.6 fL (78-100); Mean Corpuscular Hemoglobin 27.5 pg (26-32); Mean Corpuscular Hgb Concent. 31.1 g/dL (32-36); Mean Platelet Volume 10.8 fL (7.5-11.0); Monocyte (Absolute #) 1.01 x10^3/uL (0.0-1.3); Monocytes % 8.2 % (0.0-12.0); Neutrophil % 81.6 % (36.0-66.0); Platelet Count 180 x10^3/uL (150-450); Red Cell Distribution Width 14.5 % (11.5-14.0); White Blood Count 12.3 x10^3/uL (4.0-10.5)
[2022-11-04 05:30] LABS: ALBUMIN 4.2 g/dL (3.5-5.0); ANION GAP 15.3 MEQ/L (5-15); BILIRUBIN,TOTAL 0.8 mg/dL (0.2-1.3); Calcium 9.5 mg/dL (8.4-10.2); Creatinine 1 1.51 mg/dL (0.66-1.25); EST GLOMERULAR FILTRATION RATE 53.1 ML/MIN; Potassium 3.7 mmol/L (3.5-5.1); Total Protein 8.4 g/dL (6.3-8.2)
[2022-11-04] MEDS: CLINDAMYCIN-D5W 600 MG/50 ML*** 600 MG/50 ML BAG IV SCH ×2 (06:28→14:48)
--- NOTE | 2022-11-04 07:27 | PCM.CONS ---
Podiatry HPI - Consult Date of Consultation Date: 11/04/22 Reason for Consult: Diabetic foot ulcer right great toe/cellulitis right lower extremity Consulting Provider: SAVI MARTINS DPM - [facility] History of Present Illness: Yeyo is a very pleasant 47-year-old male very well-known to my service for diabetic peripheral neuropathy and multiple diabetic foot ulcers of which have been healed out with the exception of great toe ulceration at this time. Patient has cultured MRSA in the past and initially succeeded in outpatient therapy. Recent cultures were taken demonstrating no recurrence of the MRSA however patient presented to the emergency department with chills fever and cellulitis to the right lower extremity this weekend. Patient was admitted and cultures were obtained demonstrating MRSA. Patient was admitted with a white blood cell count at 16 however this has been brought down to 12 at this time and patient has had some admitted subjective relief of his symptomatology. He currently denies shortness of breath chest pain or cough. He endorses fever and chills. He currently denies any other pedal complaints at this time Medications & Allergies Home Medications: Home Medication List Insulin Aspart (Niacinamide) [Fiasp 100 Unit/ml Flextouch] 70 unit SQ BID 03/15/21 [History Confirmed 11/04/22] Dapagliflozin/Metformin HCl [Xigduo Xr 5 mg-1,000 mg Tablet] 1 each PO DAILY 11/04/22 [History Confirmed 11/04/22] Fexofenadine HCl 180 mg PO DAILY 11/04/22 [History Confirmed 11/04/22] Insulin Glargine,Hum.rec.anlog [Basaglar Kwikpen U-100] 100 units SQ BID [History Confirmed 11/04/22] Losartan/Hydrochlorothiazide [Losartan-Hctz 100-25 mg Tab] 1 each PO DAILY 11/04/22 [History Confirmed 11/04/22] Meloxicam 15 mg [Meloxicam 15 MG] 15 mg PO DAILY 11/04/22 [History Confirmed 11/04/22] Metoprolol Tartrate 50 mg [Lopressor 50 MG] 100 mg PO DAILY 11/04/22 [History Confirmed 11/04/22] Allergies/Adverse Reactions: Allergies Allergy/AdvReac Type Severity Reaction Status Date / Time morphine AdvReac Severe aggressive/ Verified 11/03/22 19:06 angry - Past Medical History Past Medical History: Yes Neurological History: No Pertinent History ENT History: No Pertinent History Cardiac History: Hypertension Respiratory History: Sleep Apnea Endocrine Medical History: Diabetes Type I Musculoskelatal History: Degenerative Disk Disease, Other GI Medical History: No Pertinent History History: No Pertinent History Pyscho-Social History: No Pertinent History Male Reproductive Disorders: No Pertinent History Comment: SX HX: BACK SURGERY - ABLATION IN LOWER BACK (VIA PAIN [facility] DR. BILLS) - Past Surgical History Past Surgical History: Yes Neuro Surgical History: No Pertinent History Cardiac History: No Pertinent History Respiratory Surgery: No Pertinent History GI Surgical History: Hernia Repair Genitourinary Surgical Hx: Other Musculskeletal Surgical Hx: No Pertinent History Male Surgical History: Vasectomy Other Surgical History: lithotripsy,kidney stones removal - Social History Smoking Status: Former smoker Exposure to second hand smoke: No Alcohol: None Drug Use: none Physical Exam - Neuro Neurologic: Epicritic and protopathic (absent) - Vascular Peripheral Pulses: Posterior tibialis: 2+, Dorsalis-Pedis: 2+ Capillary Refill Time: < 3 seconds Hair Growth: Symmetrical and Bilateral Edema: Pitting Edema Degree: 2+ Skin: Supple, not atrophic Skin Temperature: Warm to touch - Muscular Foot Type: pes planu (Ulcer to right medial IPJ with some purulent drainage on dressing. Cellulitis appears to begin at level of malleoli extending proximally.) - Narrative Narrative Physical Exam: Podiatry Physical Exam Results - Labs Lab/Micro Results: Lab Results-Last 24 Hours 11/03/22 11/03/22 11/03/22 Range/Units 19:18 19:18 19:18 WBC 16.7 H (4.0-10.5) x10^3/uL RBC 5.99 H (4.1-5.6) x10^6/uL Hgb 16.7 (12.5-18.0) g/dL Hct 52.3 H (42-50) % MCV 87.3 (78-100) fL MCH 27.9 (26-32) pg MCHC 31.9 L (32-36) g/dL RDW 14.3 H (11.5-14.0) % Plt Count 216 (150-450) x10^3/uL MPV 10.4 (7.5-11.0) fL Gran % 88.3 H (36.0-66.0) % Immature Gran % (Auto) 0.3 (0.00-0.4) % Nucleat RBC Rel Count 0.0 (0.00-0.1) % Eos # (Auto) 0 (0-0.5) x10^3/uL Immature Gran # (Auto) 0.05 H (0.00-0.03) x10^3u/L Absolute Lymphs (auto) 0.79 L (1.0-4.6) x10^3/uL Absolute Monos (auto) 1.03 (0.0-1.3) x10^3/uL Absolute Nucleated RBC 0.00 (0.00-0.01) x10^3u/L Lymphocytes % 4.7 L (24.0-44.0) % Monocytes % 6.2 (0.0-12.0) % Eosinophils % 0.0 (0.00-5.0) % Basophils % 0.5 (0.0-0.4) % Absolute Granulocytes 14.70 H (1.4-6.9) x10^3/uL Basophils # 0.08 (0-0.4) x10^3/uL Sodium 137 (137-145) mmol/L Potassium 4.1 (3.5-5.1) mmol/L Chloride 97 L (98-107) mmol/L Carbon Dioxide 25 (22-30) mmol/L Anion Gap 19.3 H (5-15) MEQ/L BUN 20 (9-20) mg/dL Creatinine 1.50 H (0.66-1.25) mg/dL Estimated GFR 53.5 ML/MIN Glucose 212 H (74-106) mg/dL POC Glucometer (74 to 106) mg/dL Lactic Acid (0.4-2.0) Calcium 9.8 (8.4-10.2) mg/dL Total Bilirubin 0.80 (0.2-1.3) mg/dL AST 37 (17-59) U/L ALT 47 (0-50) U/L Alkaline Phosphatase 76 (38-126) U/L Troponin I < 0.012 (0.000-0.034) ng/mL Serum Total Protein 9.3 H (6.3-8.2) g/dL Albumin 4.6 (3.5-5.0) g/dL Procalcitonin 0.252 H (0.030-0.080) ng/mL Urine Color (Yellow) Urine Appearance (Clear) Urine pH (4.6-8.0) Ur Specific [place] (1.005-1.030) Urine Protein (Negative) Urine Glucose (UA) (Negative) mg/dL Urine Ketones (Negative) Urine Blood (Negative) Urine Nitrite (Negative) Urine Bilirubin (Negative) Urine Urobilinogen (0.2) mg/dL Ur Leukocyte Esterase (Negative) U Hyaline Cast (Auto) (0-2) /LPF Urine Microscopic RBC (0-5) /HPF Urine Microscopic WBC (0-5) /HPF Ur Epithelial Cells (None Seen) /HPF Urine Bacteria (None Seen) /HPF Urine Culture Reflexed (NO) Nasal Screen MRSA (PCR) (NEGATIVE) 11/03/22 11/03/22 11/03/22 Range/Units 19:25 19:45 22:03 WBC (4.0-10.5) x10^3/uL RBC (4.1-5.6) x10^6/uL Hgb (12.5-18.0) g/dL Hct (42-50) % MCV (78-100) fL MCH (26-32) pg MCHC (32-36) g/dL RDW (11.5-14.0) % Plt Count (150-450) x10^3/uL MPV (7.5-11.0) fL Gran % (36.0-66.0) % Immature Gran % (Auto) (0.00-0.4) % Nucleat RBC Rel Count (0.00-0.1) % Eos # (Auto) (0-0.5) x10^3/uL Immature Gran # (Auto) (0.00-0.03) x10^3u/L Absolute Lymphs (auto) (1.0-4.6) x10^3/uL Absolute Monos (auto) (0.0-1.3) x10^3/uL Absolute Nucleated RBC (0.00-0.01) x10^3u/L Lymphocytes % (24.0-44.0) % Monocytes % (0.0-12.0) % Eosinophils % (0.00-5.0) % Basophils % (0.0-0.4) % Absolute Granulocytes (1.4-6.9) x10^3/uL Basophils # (0-0.4) x10^3/uL Sodium (137-145) mmol/L Potassium (3.5-5.1) mmol/L Chloride (98-107) mmol/L Carbon Dioxide (22-30) mmol/L Anion Gap (5-15) MEQ/L BUN (9-20) mg/dL Creatinine (0.66-1.25) mg/dL Estimated GFR ML/MIN Glucose (74-106) mg/dL POC Glucometer (74 to 106) mg/dL Lactic Acid 2.1 H (0.4-2.0) Calcium (8.4-10.2) mg/dL Total Bilirubin (0.2-1.3) mg/dL AST (17-59) U/L ALT (0-50) U/L Alkaline Phosphatase (38-126) U/L Troponin I < 0.012 (0.000-0.034) ng/mL Serum Total Protein (6.3-8.2) g/dL Albumin (3.5-5.0) g/dL Procalcitonin (0.030-0.080) ng/mL Urine Color Yellow (Yellow) Urine Appearance Clear (Clear) Urine pH 5.5 (4.6-8.0) Ur Specific [place] 1.025 (1.005-1.030) Urine Protein Negative (Negative) Urine Glucose (UA) >=1000 A (Negative) mg/dL Urine Ketones Negative (Negative) Urine Blood Negative (Negative) Urine Nitrite Negative (Negative) Urine Bilirubin Negative (Negative) Urine Urobilinogen 0.2 (0.2) mg/dL Ur Leukocyte Esterase Negative (Negative) U Hyaline Cast (Auto) NONE SEEN (0-2) /LPF Urine Microscopic RBC 0-2 (0-5) /HPF Urine Microscopic WBC 0-2 (0-5) /HPF Ur Epithelial Cells None Seen (None Seen) /HPF Urine Bacteria None Seen (None Seen) /HPF Urine Culture Reflexed NO (NO) Nasal Screen MRSA (PCR) (NEGATIVE) 11/04/22 11/04/22 11/04/22 Range/Units 02:28 04:30 04:30 WBC 12.3 H (4.0-10.5) x10^3/uL RBC 5.70 H (4.1-5.6) x10^6/uL Hgb 15.7 (12.5-18.0) g/dL Hct 50.5 H (42-50) % MCV 88.6 (78-100) fL MCH 27.5 (26-32) pg MCHC 31.1 L (32-36) g/dL RDW 14.5 H (11.5-14.0) % Plt Count 180 (150-450) x10^3/uL MPV 10.8 (7.5-11.0) fL Gran % 81.6 H (36.0-66.0) % Immature Gran % (Auto) 0.5 H (0.00-0.4) % Nucleat RBC Rel Count 0.0 (0.00-0.1) % Eos # (Auto) 0.01 (0-0.5) x10^3/uL Immature Gran # (Auto) 0.06 H (0.00-0.03) x10^3u/L Absolute Lymphs (auto) 1.12 (1.0-4.6) x10^3/uL Absolute Monos (auto) 1.01 (0.0-1.3) x10^3/uL Absolute Nucleated RBC 0.00 (0.00-0.01) x10^3u/L Lymphocytes % 9.1 L (24.0-44.0) % Monocytes % 8.2 (0.0-12.0) % Eosinophils % 0.1 (0.00-5.0) % Basophils % 0.5 (0.0-0.4) % Absolute Granulocytes 10.02 H (1.4-6.9) x10^3/uL Basophils # 0.06 (0-0.4) x10^3/uL Sodium 136 L (137-145) mmol/L Potassium 3.7 (3.5-5.1) mmol/L Chloride 98 (98-107) mmol/L Carbon Dioxide 26 (22-30) mmol/L Anion Gap 15.3 H (5-15) MEQ/L BUN 24 H (9-20) mg/dL Creatinine 1.51 H (0.66-1.25) mg/dL Estimated GFR 53.1 ML/MIN Glucose 202 H (74-106) mg/dL POC Glucometer 192 H (74 to 106) mg/dL Lactic Acid (0.4-2.0) Calcium 9.5 (8.4-10.2) mg/dL Total Bilirubin 0.80 (0.2-1.3) mg/dL AST 29 (17-59) U/L ALT 41 (0-50) U/L Alkaline Phosphatase 71 (38-126) U/L Troponin I (0.000-0.034) ng/mL Serum Total Protein 8.4 H (6.3-8.2) g/dL Albumin 4.2 (3.5-5.0) g/dL Procalcitonin (0.030-0.080) ng/mL Urine Color (Yellow) Urine Appearance (Clear) Urine pH (4.6-8.0) Ur Specific [place] (1.005-1.030) Urine Protein (Negative) Urine Glucose (UA) (Negative) mg/dL Urine Ketones (Negative) Urine Blood (Negative) Urine Nitrite (Negative) Urine Bilirubin (Negative) Urine Urobilinogen (0.2) mg/dL Ur Leukocyte Esterase (Negative) U Hyaline Cast (Auto) (0-2) /LPF Urine Microscopic RBC (0-5) /HPF Urine Microscopic WBC (0-5) /HPF Ur Epithelial Cells (None Seen) /HPF Urine Bacteria (None Seen) /HPF Urine Culture Reflexed (NO) Nasal Screen MRSA (PCR) (NEGATIVE) 11/04/22 Range/Units 04:30 WBC (4.0-10.5) x10^3/uL RBC (4.1-5.6) x10^6/uL Hgb (12.5-18.0) g/dL Hct (42-50) % MCV (78-100) fL MCH (26-32) pg MCHC (32-36) g/dL RDW (11.5-14.0) % Plt Count (150-450) x10^3/uL MPV (7.5-11.0) fL Gran % (36.0-66.0) % Immature Gran % (Auto) (0.00-0.4) % Nucleat RBC Rel Count (0.00-0.1) % Eos # (Auto) (0-0.5) x10^3/uL Immature Gran # (Auto) (0.00-0.03) x10^3u/L Absolute Lymphs (auto) (1.0-4.6) x10^3/uL Absolute Monos (auto) (0.0-1.3) x10^3/uL Absolute Nucleated RBC (0.00-0.01) x10^3u/L Lymphocytes % (24.0-44.0) % Monocytes % (0.0-12.0) % Eosinophils % (0.00-5.0) % Basophils % (0.0-0.4) % Absolute Granulocytes (1.4-6.9) x10^3/uL Basophils # (0-0.4) x10^3/uL Sodium (137-145) mmol/L Potassium (3.5-5.1) mmol/L Chloride (98-107) mmol/L Carbon Dioxide (22-30) mmol/L Anion Gap (5-15) MEQ/L BUN (9-20) mg/dL Creatinine (0.66-1.25) mg/dL Estimated GFR ML/MIN Glucose (74-106) mg/dL POC Glucometer (74 to 106) mg/dL Lactic Acid (0.4-2.0) Calcium (8.4-10.2) mg/dL Total Bilirubin (0.2-1.3) mg/dL AST (17-59) U/L ALT (0-50) U/L Alkaline Phosphatase (38-126) U/L Troponin I (0.000-0.034) ng/mL Serum Total Protein (6.3-8.2) g/dL Albumin (3.5-5.0) g/dL Procalcitonin (0.030-0.080) ng/mL Urine Color (Yellow) Urine Appearance (Clear) Urine pH (4.6-8.0) Ur Specific [place] (1.005-1.030) Urine Protein (Negative) Urine Glucose (UA) (Negative) mg/dL Urine Ketones (Negative) Urine Blood (Negative) Urine Nitrite (Negative) Urine Bilirubin (Negative) Urine Urobilinogen (0.2) mg/dL Ur Leukocyte Esterase (Negative) U Hyaline Cast (Auto) (0-2) /LPF Urine Microscopic RBC (0-5) /HPF Urine Microscopic WBC (0-5) /HPF Ur Epithelial Cells (None Seen) /HPF Urine Bacteria (None Seen) /HPF Urine Culture Reflexed (NO) Nasal Screen MRSA (PCR) DETECTED A (NEGATIVE) - Radiology Impressions Radiology Exams & Impressions: Radiology Procedures Category Date Time Status CHEST 1 VIEW (PORTABLE) Stat Exams 11/03/22 19:22 Taken VENOUS UNILAT/LIMITED EXTREMIT [US] Stat Exams 11/03/22 20:31 Taken - Other Procedures and Tests Respiratory Therapy 11/04/22 02:11 BiPap/CPAP QHS 11/04/22 02:57 Respiratory Therapy Assessment DAILY Assessment/Plan (1) Cellulitis of right lower extremity Current Visit: Yes Status: Acute Assessment & Plan: Patient examination evaluation. Would like to order radiographs right foot in order to better assess if potential for osteomyelitis patient has been negative over the course of the last 8 weeks. Plan to perform bedside debridement to ulceration patient's vascular status is intact. An [place] boot for compression therapy as well as cellulitis will be performed and will be changed on Friday basis until cellulitis has resolved. Continue IV antibiotics. Medicine managing at this time. MRSA cultured. Potentially polymicrobial. Patient largely neuropathic no pain control necessary unless medicine team sees otherwise. Will follow with you Code(s): L03.115 - CELLULITIS OF RIGHT LOWER LIMB (2) Diabetic ulcer of foot associated with diabetes mellitus due to underlying condition, limited to breakdown of skin Current Visit: Yes Status: Acute Code(s): E08.621 - DIABETES MELLITUS DUE TO UNDERLYING CONDITION W FOOT ULCER; L97.501 - NON-PRS CHR ULCER OTH PRT UNSP FOOT LIMITED TO BRKDWN SKIN (3) Sepsis Current Visit: Yes Status: Acute (4) FOREST (acute kidney injury) Current Visit: Yes Status: Acute Code(s): N17.9 - ACUTE KIDNEY FAILURE, UNSPECIFIED
[2022-11-04] MEDS: Hydromorphone 1 mg/ml Injection IV PRN ×4 (07:45→20:18)
[2022-11-04] MEDS: HUMALOG SQ PRN ×3 (07:49→22:03)
[2022-11-04] MEDS ORDERED: PHARMACY DOSING REQUIRED: VANCOMYCIN IV ONE (08:00)
--- NOTE | 2022-11-04 08:41 | XRAY ---
Indication: 1st toe infection. Fever. Comparison: September 23, 2022 3 nonweightbearing views right foot now demonstrates distal 1st toe soft tissue swelling. Stable old distal 2nd metatarsal fracture, pes planus, mild 1st MTP degenerative changes, and tiny posterior heel spur. No other bony, articular, or soft tissue abnormalities.
--- NOTE | 2022-11-04 08:43 | XRAY ---
Indication: Right leg swelling and erythema. Cellulitis. Two-dimensional sonogram and color Doppler imaging of the major venous vessels of the right leg performed. Comparison: None No thrombus seen in the examined deep venous vessels of the right leg including greater saphenous vein. Veins demonstrate normal compressibility. Venous waveforms are normal with and without augmentation. Right groin demonstrates a few 1 cm lymph nodes, none pathologically enlarged. Impression: Right leg negative for DVT. Comment: Preliminary report was given.
--- NOTE | 2022-11-04 08:45 | XRAY ---
Indication: Fever. Comparison: None Portable chest inflated and clear. Heart not enlarged. Bony thorax intact. Impression: Nonacute chest.
[2022-11-04] MEDS: HUMALOG SQ SCH ×2 (08:48→16:26)
[2022-11-04] MEDS ORDERED: PROTONIX 40 MG IV IV SCH (10:00)
[2022-11-04] MEDS ORDERED: VANCOMYCIN 1 GRAM/200 ML BAG 1 GM/200 ML PIGGYBACK IV ONE (10:00)
[2022-11-04] MEDS: Lantus Insulin SQ SCH ×2 (10:31→22:02)
[2022-11-04] MEDS: TYLENOL EXTRA STRENGTH 500 MG PO PRN (10:31)
[2022-11-04] MEDS: Lopressor 50 MG PO SCH (10:32)
[2022-11-04] MEDS: ENOXAPARIN SODIUM SQ SCH (10:32)
[2022-11-04] MEDS: CLARITIN 10 MG PO SCH (10:33)
[2022-11-04] MEDS ORDERED: TORAdol 30 mg Injection IV ONE ×2 (18:06→23:01)
[2022-11-04] MEDS ORDERED: TORAdol 30 mg Injection ONE (18:18)
--- NOTE | 2022-11-04 19:41 | TM.IN ---
Tele-Medicine Incident Note - Incident Note Tel-Medicine Incident Note: Patient seen earlier this morning by overnight provider. Briefly, right leg weakness, and an area discontinuous from his chronic left first toe ulcer. Of note, he has had multiple negative cultures from his left toe wound, including on 09/30 and 10/21. Prior to that, he had growth of MSSA from a culture on 09/27. Today he had MRSA only from a swab of his nares, suggesting possibility of MRSA colonization. However, there have been no results yet from his cellulitis or from his toe wound. He still notes some redness around his legs, that worsened overnight, but have been stable throughout the day. They are still swollen to have some pain. However, his fever has improved. Patient has circumferential erythema from inferior to his knee to just above his ankle along the right leg, with no discharge or drainage noted. He also has ulceration and perhaps mild erythema over the medial surface of his right first toe. Doppler ultrasound of the right leg was negative for DVT, and plain film x- ray did not show signs of osteomyelitis. Of note, patient also has an acute kidney injury, with elevation of his creatinine from baseline of 1 to 1.5 today. 47-year-old man with history of hypertension, type 2 diabetes, and EARL on nocturnal BiPAP, here with right leg cellulitis. ## Right leg cellulitis discontinuous from the area of his left toe ulcer. The ulcer is also had negative cultures multiple times in the last few weeks. White count is down from 17 to 12 today. Continue broad-spectrum coverage with vancomycin and Zosyn for now Discontinue clindamycin Follow-up blood and wound cultures Continue PRN Dilaudid 0.5 mg IV q.4 hours ## Type 2 diabetes hemoglobin A1c 9.4, overall poorly controlled. Levels here have been elevated, getting up to 282 this afternoon. He is on very high doses of insulin at home. Continue insulin lispro 70 units with meals Continue Lantus 100 units BID Increase sliding scale insulin from moderate dose to high-dose protocol ## EARL Continue nocturnal BiPAP 01/09 ## Hypertension blood pressure mildly elevated Continue home Lopressor 100 mg daily If blood pressure not better controlled with pain control, will need to adjust his antihypertensives, as Lopressor is not truly a BID medication or is not as effective as other medications for lowering blood pressure CODE STATUS: Full code Prophylaxis: Lovenox 40 daily Diet: Diabetic Telemedicine Encounter - Telemedicine Encounter Telemedicine Encounter: The entirety of this encounter was performed via Telemedicine"
[2022-11-04] MEDS: VANCOCIN IV SCH (22:02)
[2022-11-04] MEDS: SODIUM CHLORIDE 0.9% IV SCH (22:02)
[2022-11-05] MEDS: Hydromorphone 1 mg/ml Injection IV PRN (00:29)
[2022-11-05] MEDS: PIPERACILLIN/TAZOBACTAM 3.375 GM in Sodium Chloride 100ML MINI-BAG PLUS 100 ML IV SCH ×4 (00:29→19:34)
[2022-11-05 05:32] LABS: Hematocrit 42.7 % (42-50); Hemoglobin 13.6 g/dL (12.5-18.0); Mean Corpuscular Hgb Concent. 31.9 g/dL (32-36); Mean Platelet Volume 10.1 fL (7.5-11.0); Platelet Count 160 x10^3/uL (150-450); Red Blood Count 4.85 x10^6/uL (4.1-5.6); Red Cell Distribution Width 14.8 % (11.5-14.0); White Blood Count 6.5 x10^3/uL (4.0-10.5)
[2022-11-05 05:38] LABS: ANION GAP 12.8 MEQ/L (5-15); Calcium 7.9 mg/dL (8.4-10.2); Creatinine 1 1.55 mg/dL (0.66-1.25); EST GLOMERULAR FILTRATION RATE 51.6 ML/MIN; Potassium 4.2 mmol/L (3.5-5.1)
[2022-11-05] MEDS ORDERED: Sodium Chloride 0.9% 1000 ML 1,000 ML IV SCH (09:30)
[2022-11-05] MEDS: Lopressor 50 MG PO SCH (09:55)
[2022-11-05] MEDS: Lantus Insulin SQ SCH ×2 (09:55→22:28)
[2022-11-05] MEDS: CLARITIN 10 MG PO SCH (09:55)
[2022-11-05] MEDS: VANCOCIN IV SCH ×2 (09:56→22:29)
[2022-11-05] MEDS: SODIUM CHLORIDE 0.9% IV SCH ×2 (09:56→22:29)
[2022-11-05] MEDS: ENOXAPARIN SODIUM SQ SCH (09:56)
[2022-11-05] MEDS: HUMALOG SQ PRN ×4 (09:56→22:29)
[2022-11-05] MEDS: HUMALOG SQ SCH (10:10)
[2022-11-05] MEDS: COREG 12.5 MG PO SCH ×2 (13:23→22:28)
[2022-11-05] MEDS: HYDROCODONE-ACETAMIN 10-325 MG PO PRN ×2 (17:14→22:39)
[2022-11-05] MEDS ORDERED: TROUGH DRUG LEVELS IJ ONE (21:30)
--- NOTE | 2022-11-05 22:18 | PCM.NOTE ---
Date and Time: 11/05/222211 Subjective Assessment: No acute events overnight. Blood pressure remained more elevated throughout the day, and having some headache still, although was resolved after Tylenol yesterday. His leg pain is improved today. Of note, patient was not doing the insulin aspart at home as he could not afford it, and was only on insulin gl argine. He has not been getting insulin aspart here, only the scheduled insulin glargine, as well as a sliding scale insulin. Objective Exam Wound Assessment: Skin/Wound Assessment Wound/Incision Assessment Start: 11/04/22 00:57 Text: Status: Active Freq: Q6H Protocol: Document 11/05/22 20:00 LB (Rec: 11/05/22 21:01 LB [id number]) Wound Photo Photo Taken No Comments: GENERAL: Sitting up in bed in no acute distress NEURO: Alert, oriented x3, normal affect CV: Regular rate and rhythm, no murmurs, mild edema in the right leg PULM: Clear to auscultation bilaterally, no work of breathing ABD: Soft, nontender, nondistended Extremities: Erythema from just inferior to his knee to just above the ankle, with no discharge or drainage. Extent is unchanged today, although erythema is decreased in intensity. OBJECTIVE DATA Vital Signs: Vital Signs - 24 hr Temp Pulse Resp BP Pulse Ox 11/05/22 19:57 97.8 F 81 20 161/83 97 11/05/22 19:44 75 18 98 11/05/22 16:00 96.8 F 70 16 167/98 96 11/05/22 12:00 97.7 F 76 16 169/101 94 L 11/05/22 07:35 96.8 F 62 18 140/89 95 11/05/22 07:22 69 18 98 11/05/22 04:00 96.4 F 55 L 18 150/86 94 L 11/04/22 23:31 97.2 F 84 18 151/87 93 L Pain Assessment - Last Documented Pain Intensity 1 Pain Scale Used 0-10 Pain Scale Intake and Output: Intake & Output 11/03/22 11/04/22 11/05/22 11/06/22 11:59 11:59 11:59 11:59 Intake Total 244 3818 480 Balance 244 3818 480 Weight 176 kg 180.5 kg Lab Results: Lab Results-Last 24 Hours 11/05/22 11/05/22 11/05/22 Range/Units 05:23 05:23 07:11 WBC 6.5 (4.0-10.5) x10^3/uL RBC 4.85 (4.1-5.6) x10^6/uL Hgb 13.6 (12.5-18.0) g/dL Hct 42.7 (42-50) % MCV 88.0 (78-100) fL MCH 28.0 (26-32) pg MCHC 31.9 L (32-36) g/dL RDW 14.8 H (11.5-14.0) % Plt Count 160 (150-450) x10^3/uL MPV 10.1 (7.5-11.0) fL Sodium 138 (137-145) mmol/L Potassium 4.2 (3.5-5.1) mmol/L Chloride 105 (98-107) mmol/L Carbon Dioxide 25 (22-30) mmol/L Anion Gap 12.8 (5-15) MEQ/L BUN 21 H (9-20) mg/dL Creatinine 1.55 H (0.66-1.25) mg/dL Estimated GFR 51.6 ML/MIN Glucose 223 H (74-106) mg/dL POC Glucometer 189 H (74 to 106) mg/dL Calcium 7.9 L D (8.4-10.2) mg/dL Vancomycin Trough (10-20) ug/mL 11/05/22 11/05/22 11/05/22 Range/Units 11:34 16:42 21:00 WBC (4.0-10.5) x10^3/uL RBC (4.1-5.6) x10^6/uL Hgb (12.5-18.0) g/dL Hct (42-50) % MCV (78-100) fL MCH (26-32) pg MCHC (32-36) g/dL RDW (11.5-14.0) % Plt Count (150-450) x10^3/uL MPV (7.5-11.0) fL Sodium (137-145) mmol/L Potassium (3.5-5.1) mmol/L Chloride (98-107) mmol/L Carbon Dioxide (22-30) mmol/L Anion Gap (5-15) MEQ/L BUN (9-20) mg/dL Creatinine (0.66-1.25) mg/dL Estimated GFR ML/MIN Glucose (74-106) mg/dL POC Glucometer 266 H 300 H (74 to 106) mg/dL Calcium (8.4-10.2) mg/dL Vancomycin Trough 16.95 (10-20) ug/mL 11/05/22 Range/Units 22:07 WBC (4.0-10.5) x10^3/uL RBC (4.1-5.6) x10^6/uL Hgb (12.5-18.0) g/dL Hct (42-50) % MCV (78-100) fL MCH (26-32) pg MCHC (32-36) g/dL RDW (11.5-14.0) % Plt Count (150-450) x10^3/uL MPV (7.5-11.0) fL Sodium (137-145) mmol/L Potassium (3.5-5.1) mmol/L Chloride (98-107) mmol/L Carbon Dioxide (22-30) mmol/L Anion Gap (5-15) MEQ/L BUN (9-20) mg/dL Creatinine (0.66-1.25) mg/dL Estimated GFR ML/MIN Glucose (74-106) mg/dL POC Glucometer 295 H (74 to 106) mg/dL Calcium (8.4-10.2) mg/dL Vancomycin Trough (10-20) ug/mL Blood culture 11/03: Gram stain with gram-positive cocci, although culture is no growth to date (note, only 1 specimen was collected) Foot wound culture 11/04: Pending Radiology Exams: Radiology Procedures Category Date Time Status FOOT (MINIMUM 3 VIEWS) Routine Exams 11/04/22 07:54 Completed Multi-Disciplinary Progress Notes: Multi-Disciplinary Progress Notes 11/05/22 10:47 Case Management Note by Madeline Poon S/W DR. HOU- HE REPORTS FOR PATIENT TO CONTINUE M, W,F UNNA BOOTS WHILE IN FACILITY THEN PATIENT WILL TRANSITION TO WEEKLY AT SD. DR. MILLER NOTIFIED. S/W PATIENT- HE DENIES ANY OTHER NEW NEEDS AT TIME OF DC Initialized on 11/05/22 10:47 - END OF NOTE Assessment/Plan (1) Cellulitis of right lower extremity Current Visit: Yes Status: Acute Assessment & Plan: 47-year-old man with history of hypertension, type 2 diabetes, and EARL on nocturnal BiPAP, here with right leg cellulitis. ## Right leg cellulitis discontinuous from the area of his left toe ulcer. The ulcer is also had negative cultures multiple times in the last few weeks. Started on empiric vancomycin and Zosyn, and white count is down to 6.5 today. Blood culture Gram stain has gram-positive cocci, blood culture is still pending. Continue broad-spectrum coverage with vancomycin and Zosyn for now Follow-up blood and wound cultures Continue PRN Dilaudid 0.5 mg IV q.4 hours Monitor for improvement in erythema ## Acute kidney injury baseline creatinine is 1, now up to 1.6 Continue holding home losartan and hydrochlorothiazide Repeat BMP in the morning ## Type 2 diabetes hemoglobin A1c 9.4, overall poorly controlled. Levels remain elevated here, still in 200s. Note, patient has not been getting mealtime scheduled insulin. Continue Lantus 100 units BID Continue high-dose sliding scale insulin Try adding Humalog 30 units with meals ## EARL Continue nocturnal BiPAP / ## Hypertension blood pressure persistently elevated Change home Lopressor 100 daily to carvedilol 25 mg p.o. BID CODE STATUS: Full code Prophylaxis: Lovenox 40 daily Diet: Diabetic Code(s): L03.115 - CELLULITIS OF RIGHT LOWER LIMB Telemedicine Encounter - Telemedicine Encounter Telemedicine Encounter: The entirety of this encounter was performed via Telemedicine"
[2022-11-06] MEDS: PIPERACILLIN/TAZOBACTAM 3.375 GM in Sodium Chloride 100ML MINI-BAG PLUS 100 ML IV SCH ×4 (00:40→18:13)
[2022-11-06 05:17] LABS: Hematocrit 43.3 % (42-50); Hemoglobin 13.3 g/dL (12.5-18.0); Mean Cell Volume 89.6 fL (78-100); Mean Corpuscular Hemoglobin 27.5 pg (26-32); Mean Corpuscular Hgb Concent. 30.7 g/dL (32-36); Mean Platelet Volume 10.6 fL (7.5-11.0); Platelet Count 172 x10^3/uL (150-450); Red Blood Count 4.83 x10^6/uL (4.1-5.6); Red Cell Distribution Width 14.4 % (11.5-14.0); White Blood Count 6.7 x10^3/uL (4.0-10.5)
[2022-11-06 05:48] LABS: ANION GAP 8.8 MEQ/L (5-15); BLOOD UREA NITROGEN 15 mg/dL (9-20); CHLORIDE 106 mmol/L (98-107); Calcium 7.7 mg/dL (8.4-10.2); Carbon Dioxide 28 mmol/L (22-30); Creatinine 1 1.26 mg/dL (0.66-1.25); EST GLOMERULAR FILTRATION RATE > 60.0 ML/MIN; Glucose 124 mg/dL (74-106); Potassium 3.9 mmol/L (3.5-5.1); SODIUM 139 mmol/L (137-145)
[2022-11-06] MEDS: HUMALOG SQ SCH ×3 (08:25→17:27)
[2022-11-06] MEDS: ENOXAPARIN SODIUM SQ SCH (09:45)
[2022-11-06] MEDS: COREG 12.5 MG PO SCH ×2 (09:45→21:54)
[2022-11-06] MEDS: CLARITIN 10 MG PO SCH (09:45)
[2022-11-06] MEDS: VANCOCIN IV SCH ×2 (09:52→21:54)
[2022-11-06] MEDS: Lantus Insulin SQ SCH ×2 (09:52→22:31)
[2022-11-06] MEDS: SODIUM CHLORIDE 0.9% IV SCH ×2 (09:52→21:54)
[2022-11-06] MEDS: HYDROCODONE-ACETAMIN 10-325 MG PO PRN ×3 (10:03→22:08)
[2022-11-06] MEDS: HUMALOG SQ PRN (12:09)
[2022-11-06] MEDS: TYLENOL EXTRA STRENGTH 500 MG PO PRN ×2 (12:18→19:14)
--- NOTE | 2022-11-06 15:51 | PCM.NOTE ---
Date and Time: 11/06/22 1546 Subjective Assessment: No acute events overnight. Leg remains wrapped in Unna boot, with plans for changing later today. Not having any further headache after getting [place]. No fevers overnight. Objective Exam Wound Assessment: Skin/Wound Assessment Wound/Incision Assessment Start: 11/04/22 00:57 Text: Status: Active Freq: Q6H Protocol: Document 11/06/22 14:00 RF (Rec: 11/06/22 14:34 RF [id number]) Wound Photo Photo Taken No Comments: GENERAL: Sitting up in bed in no acute distress NEURO: Alert, oriented x3, normal affect CV: Regular rate and rhythm, no murmurs, unable to assess right leg edema as currently wrapped in Unna boot PULM: Clear to auscultation bilaterally, no work of breathing ABD: Soft, nontender, nondistended Extremities: Leg wrapped in Unna boot, no erythema visible in superior regions. OBJECTIVE DATA Vital Signs: Vital Signs - 24 hr Temp Pulse Resp BP Pulse Ox 11/06/22 11:41 98.6 F 68 18 168/101 96 11/06/22 10:05 94 L 11/06/22 06:50 98.5 F 62 16 137/84 99 11/06/22 04:00 97.3 F 76 20 137/82 98 11/06/22 00:00 97.8 F 67 20 135/68 97 11/05/22 19:57 97.8 F 81 20 161/83 97 11/05/22 19:44 75 18 98 11/05/22 16:00 96.8 F 70 16 167/98 96 Pain Assessment - Last Documented Pain Intensity 2 Pain Scale Used 0-10 Pain Scale Intake and Output: Intake & Output 11/04/22 11/05/22 11/06/22 11/07/22 11:59 11:59 11:59 11:59 Intake Total 244 3818 3966 Balance 244 3818 3966 Weight 176 kg 180.5 kg 180.6 kg 180.6 kg Lab Results: Lab Results-Last 24 Hours 11/05/22 11/05/22 11/05/22 Range/Units 16:42 21:00 22:07 WBC (4.0-10.5) x10^3/uL RBC (4.1-5.6) x10^6/uL Hgb (12.5-18.0) g/dL Hct (42-50) % MCV (78-100) fL MCH (26-32) pg MCHC (32-36) g/dL RDW (11.5-14.0) % Plt Count (150-450) x10^3/uL MPV (7.5-11.0) fL Sodium (137-145) mmol/L Potassium (3.5-5.1) mmol/L Chloride (98-107) mmol/L Carbon Dioxide (22-30) mmol/L Anion Gap (5-15) MEQ/L BUN (9-20) mg/dL Creatinine (0.66-1.25) mg/dL Estimated GFR ML/MIN Glucose (74-106) mg/dL POC Glucometer 300 H 295 H (74 to 106) mg/dL Calcium (8.4-10.2) mg/dL Vancomycin Trough 16.95 (10-20) ug/mL 11/06/22 11/06/22 11/06/22 Range/Units 04:00 04:20 06:26 WBC 6.7 (4.0-10.5) x10^3/uL RBC 4.83 (4.1-5.6) x10^6/uL Hgb 13.3 (12.5-18.0) g/dL Hct 43.3 (42-50) % MCV 89.6 (78-100) fL MCH 27.5 (26-32) pg MCHC 30.7 L (32-36) g/dL RDW 14.4 H (11.5-14.0) % Plt Count 172 (150-450) x10^3/uL MPV 10.6 (7.5-11.0) fL Sodium 139 (137-145) mmol/L Potassium 3.9 (3.5-5.1) mmol/L Chloride 106 (98-107) mmol/L Carbon Dioxide 28 (22-30) mmol/L Anion Gap 8.8 (5-15) MEQ/L BUN 15 (9-20) mg/dL Creatinine 1.26 H (0.66-1.25) mg/dL Estimated GFR > 60.0 ML/MIN Glucose 124 H (74-106) mg/dL POC Glucometer 96 (74 to 106) mg/dL Calcium 7.7 L (8.4-10.2) mg/dL Vancomycin Trough (10-20) ug/mL 11/06/22 11/06/22 Range/Units 11:26 15:21 WBC (4.0-10.5) x10^3/uL RBC (4.1-5.6) x10^6/uL Hgb (12.5-18.0) g/dL Hct (42-50) % MCV (78-100) fL MCH (26-32) pg MCHC (32-36) g/dL RDW (11.5-14.0) % Plt Count (150-450) x10^3/uL MPV (7.5-11.0) fL Sodium (137-145) mmol/L Potassium (3.5-5.1) mmol/L Chloride (98-107) mmol/L Carbon Dioxide (22-30) mmol/L Anion Gap (5-15) MEQ/L BUN (9-20) mg/dL Creatinine (0.66-1.25) mg/dL Estimated GFR ML/MIN Glucose (74-106) mg/dL POC Glucometer 166 H 221 H (74 to 106) mg/dL Calcium (8.4-10.2) mg/dL Vancomycin Trough (10-20) ug/mL Blood culture 11/03 Gram stain with gram-positive cocci, culture itself no growth to date Wound culture 11/04 (from right toe wound) growth of gram-positive cocci, ID and sensitivity pending Multi-Disciplinary Progress Notes: Multi-Disciplinary Progress Notes 11/06/22 10:14 Case Management Note by Madeline Poon REVIEWED CHART- NO CHANGE IN DC PLANS AT THIS TIME Initialized on 11/06/22 10:14 - END OF NOTE Assessment/Plan (1) Cellulitis of right lower extremity Current Visit: Yes Status: Acute Assessment & Plan: 47-year-old man with history of hypertension, type 2 diabetes, and EARL on nocturnal BiPAP, here with right leg cellulitis. ## Right leg cellulitis discontinuous from the area of his left toe ulcer. The ulcer is also had negative cultures multiple times in the last few weeks. Started on empiric vancomycin and Zosyn, and white count is down to 6.7 today. Blood culture Gram stain has gram-positive cocci, blood culture is still pending. Toe wound culture now growing gram-positive cocci. Continue broad-spectrum coverage with vancomycin and Zosyn for now, although might be able to stop Zosyn soon as currently only having gram-positive's on culture. Follow-up blood and wound cultures Continue Unna boot, changed Friday while inpatient, but planning for weekly changes as an outpatient Continue PRN Dilaudid 0.5 mg IV q.4 hours Monitor for improvement in erythema ## Acute kidney injury baseline creatinine is 1.0, up to 1.6. Today coming down, down to 1.3. Continue holding home losartan and hydrochlorothiazide Repeat BMP in the morning ## Type 2 diabetes hemoglobin A1c 9.4, overall poorly controlled. Glucose levels have been consistently in the 200s here. Coming down earlier this morning after starting a log. Continue Lantus 100 units BID Continue scheduled Humalog 30 units with meals Continue high-dose sliding scale insulin ## EARL Continue nocturnal BiPAP 10/5 ## Hypertension blood pressure better controlled overnight. Continue carvedilol 25 mg p.o. BID CODE STATUS: Full code Prophylaxis: Lovenox 40 daily Diet: Diabetic Code(s): L03.115 - CELLULITIS OF RIGHT LOWER LIMB Telemedicine Encounter - Telemedicine Encounter Telemedicine Encounter: The entirety of this encounter was performed via Telemedicine"
--- NOTE | 2022-11-06 17:37 | PCM.NOTE ---
Date and Time: 11/06/221735 Subjective Assessment: feeling better. mother at bedside. Physical Exam - Neuro Neurologic: Epicritic and protopathic (absent) - Vascular Peripheral Pulses: Posterior tibialis: 2+, Dorsalis-Pedis: 2+ Capillary Refill Time: < 3 seconds Varicosities: Positive Edema: Pitting Edema Degree: 2+ Skin: Supple, not atrophic (Cellulitis appears to be resolving to some degree however not completely controlled. Leg held in dependent position with nonresolution indicative of cellulitis. Nonblanchable erythema centrally to leg. Wound inspected demonstrating improved depth.) - Narrative Narrative Physical Exam: Podiatry Physical Exam OBJECTIVE DATA Vital Signs: Vital Signs - 24 hr Temp Pulse Resp BP Pulse Ox 11/06/22 16:00 98.0 F 70 18 165/86 97 11/06/22 11:41 98.6 F 68 18 168/101 96 11/06/22 10:05 94 L 11/06/22 06:50 98.5 F 62 16 137/84 99 11/06/22 04:00 97.3 F 76 20 137/82 98 11/06/22 00:00 97.8 F 67 20 135/68 97 11/05/22 19:57 97.8 F 81 20 161/83 97 11/05/22 19:44 75 18 98 Pain Assessment - Last Documented Pain Intensity 1 Pain Scale Used 0-10 Pain Scale Intake and Output: Intake & Output 11/04/22 11/05/22 11/06/22 11/07/22 11:59 11:59 11:59 11:59 Intake Total 244 3818 3966 240 Balance 244 3818 3966 240 Weight 176 kg 180.5 kg 180.6 kg 180.6 kg Lab Results: Lab Results-Last 24 Hours 11/05/22 11/05/22 11/06/22 Range/Units 21:00 22:07 04:00 WBC 6.7 (4.0-10.5) x10^3/uL RBC 4.83 (4.1-5.6) x10^6/uL Hgb 13.3 (12.5-18.0) g/dL Hct 43.3 (42-50) % MCV 89.6 (78-100) fL MCH 27.5 (26-32) pg MCHC 30.7 L (32-36) g/dL RDW 14.4 H (11.5-14.0) % Plt Count 172 (150-450) x10^3/uL MPV 10.6 (7.5-11.0) fL Sodium (137-145) mmol/L Potassium (3.5-5.1) mmol/L Chloride (98-107) mmol/L Carbon Dioxide (22-30) mmol/L Anion Gap (5-15) MEQ/L BUN (9-20) mg/dL Creatinine (0.66-1.25) mg/dL Estimated GFR ML/MIN Glucose (74-106) mg/dL POC Glucometer 295 H (74 to 106) mg/dL Calcium (8.4-10.2) mg/dL Vancomycin Trough 16.95 (10-20) ug/mL 11/06/22 11/06/22 11/06/22 Range/Units 04:20 06:26 11:26 WBC (4.0-10.5) x10^3/uL RBC (4.1-5.6) x10^6/uL Hgb (12.5-18.0) g/dL Hct (42-50) % MCV (78-100) fL MCH (26-32) pg MCHC (32-36) g/dL RDW (11.5-14.0) % Plt Count (150-450) x10^3/uL MPV (7.5-11.0) fL Sodium 139 (137-145) mmol/L Potassium 3.9 (3.5-5.1) mmol/L Chloride 106 (98-107) mmol/L Carbon Dioxide 28 (22-30) mmol/L Anion Gap 8.8 (5-15) MEQ/L BUN 15 (9-20) mg/dL Creatinine 1.26 H (0.66-1.25) mg/dL Estimated GFR > 60.0 ML/MIN Glucose 124 H (74-106) mg/dL POC Glucometer 96 166 H (74 to 106) mg/dL Calcium 7.7 L (8.4-10.2) mg/dL Vancomycin Trough (10-20) ug/mL 11/06/22 Range/Units 15:21 WBC (4.0-10.5) x10^3/uL RBC (4.1-5.6) x10^6/uL Hgb (12.5-18.0) g/dL Hct (42-50) % MCV (78-100) fL MCH (26-32) pg MCHC (32-36) g/dL RDW (11.5-14.0) % Plt Count (150-450) x10^3/uL MPV (7.5-11.0) fL Sodium (137-145) mmol/L Potassium (3.5-5.1) mmol/L Chloride (98-107) mmol/L Carbon Dioxide (22-30) mmol/L Anion Gap (5-15) MEQ/L BUN (9-20) mg/dL Creatinine (0.66-1.25) mg/dL Estimated GFR ML/MIN Glucose (74-106) mg/dL POC Glucometer 221 H (74 to 106) mg/dL Calcium (8.4-10.2) mg/dL Vancomycin Trough (10-20) ug/mL Multi-Disciplinary Progress Notes: Multi-Disciplinary Progress Notes 11/06/22 10:14 Case Management Note by Madeline Poon REVIEWED CHART- NO CHANGE IN DC PLANS AT THIS TIME Initialized on 11/06/22 10:14 - END OF NOTE Assessment/Plan (1) Cellulitis of right lower extremity Current Visit: Yes Status: Acute Assessment & Plan: Patient examination evaluation. An Unna boot for compression therapy as well as cellulitis will be performed and will be changed on Friday basis until cellulitis has resolved. Continue IV antibiotics. Medicine managing at this time. Patient largely neuropathic no pain control necessary unless medicine team sees otherwise. cellulitis appears to be resolving awaiting blood cultures for d/c planning. Ok for patient to go home and return for outpatient care for wound on d/c Will follow with you until then Code(s): L03.115 - CELLULITIS OF RIGHT LOWER LIMB (2) Diabetic ulcer of foot associated with diabetes mellitus due to underlying condition, limited to breakdown of skin Current Visit: Yes Status: Acute Code(s): E08.621 - DIABETES MELLITUS DUE TO UNDERLYING CONDITION W FOOT ULCER; L97.501 - NON-PRS CHR ULCER OTH PRT UNSP FOOT LIMITED TO BRKDWN SKIN (3) Sepsis Current Visit: Yes Status: Acute (4) FOREST (acute kidney injury) Current Visit: Yes Status: Acute Code(s): N17.9 - ACUTE KIDNEY FAILURE, UNSPECIFIED
[2022-11-07] MEDS: PIPERACILLIN/TAZOBACTAM 3.375 GM in Sodium Chloride 100ML MINI-BAG PLUS 100 ML IV SCH ×2 (01:09→06:29)
[2022-11-07] MEDS: TYLENOL EXTRA STRENGTH 500 MG PO PRN (04:19)
[2022-11-07 04:45] LABS: Hematocrit 45.1 % (42-50); Hemoglobin 14.2 g/dL (12.5-18.0); Mean Cell Volume 87.7 fL (78-100); Mean Corpuscular Hemoglobin 27.6 pg (26-32); Mean Corpuscular Hgb Concent. 31.5 g/dL (32-36); Mean Platelet Volume 10.2 fL (7.5-11.0); Platelet Count 194 x10^3/uL (150-450); Red Blood Count 5.14 x10^6/uL (4.1-5.6); Red Cell Distribution Width 14.2 % (11.5-14.0); White Blood Count 9.2 x10^3/uL (4.0-10.5)
[2022-11-07 04:57] LABS: ANION GAP 12.7 MEQ/L (5-15); BLOOD UREA NITROGEN 11 mg/dL (9-20); CHLORIDE 108 mmol/L (98-107); Carbon Dioxide 23 mmol/L (22-30); Creatinine 1 1.17 mg/dL (0.66-1.25); EST GLOMERULAR FILTRATION RATE > 60.0 ML/MIN; Glucose 73 mg/dL (74-106); Potassium 3.8 mmol/L (3.5-5.1); SODIUM 140 mmol/L (137-145)
[2022-11-07] MEDS: HYDROCODONE-ACETAMIN 10-325 MG PO PRN (06:53)
[2022-11-07 07:17] VITALS: RESP 18
[2022-11-07] MEDS: ENOXAPARIN SODIUM SQ SCH (08:38)
[2022-11-07] MEDS: COREG 12.5 MG PO SCH (08:38)
[2022-11-07] MEDS: CLARITIN 10 MG PO SCH (08:38)
[2022-11-07] MEDS: Lantus Insulin SQ SCH (08:43)
[2022-11-07] MEDS: HUMALOG SQ SCH (08:44)
[2022-11-07] MEDS: SODIUM CHLORIDE 0.9% IV SCH (08:57)
[2022-11-07] MEDS: VANCOCIN IV SCH (08:57)
[2022-11-07] MEDS: Hydromorphone 1 mg/ml Injection IV PRN (10:05)
[2022-11-07 11:25] VITALS: BP 170/91; PULSE 77; TEMP 96.6; O2SAT 93
--- NOTE | 2022-11-07 11:32 | PCM.DS ---
Discharge Summary Date of Admission: 11/04/22 11:52 Date of Discharge: 11/07/22 Admitting Physician: JON BOWIE MD Consults: Consults on Case 11/04/22 08:00 Consult Podiatry ROUTINE Primary Care Provider: LISBETH PARK <ANU OROPEZA - Last Filed: 11/07/22 11:12> Date of Admission: 11/04/22 11:52 Date of Discharge: 11/07/22 Admitting Physician: JON BOWIE MD Consults: Consults on Case 11/04/22 08:00 Consult Podiatry ROUTINE Primary Care Provider: LISBETH PARK <NATALIE MACIAS - Last Filed: 11/07/22 14:45> Allergies <ANU OROPEZA - Last Filed: 11/07/22 11:12> <NATALIE MACIAS - Last Filed: 11/07/22 14:45> Allergies morphine Adverse Reaction (Severe, Verified 11/03/22 19:06) aggressive/angry Hospital Summary - Hospital Course Hospital Course: Mr. Muro is a 47 year old male with a pmhx of diabetes mellitus type 2, HTN, and EARL admitted for cellulitis of the right leg and FOREST. During hospital course, doppler imaging was found to be negative for DVT, XR of the right foot negative for acute etiologies, and CXR negative for cardiopulmonary processes. Wound culture resulted staphylococcus aureus. Blood culture findings consistent with contamination. Patient was treated with IV Vancomycin and Zosyn with improvement noted to RLE. Compression therapy with Unna boot was initiated and will continue outpatient with weekly dressing changes via Dr. Savi Martins (podiatry). Patient will also start Keflex on discharge for 6 days starting 11/08/22 ending 11/13/22. Patient had also reported non compliance with short acting insulin due to out of pocket cost, resulting in poor glycemic control. On discharge patient will resume home insulin regimen with the exception of short acting insulin changed to the more affordable Relion. On admission patient met buck galvan for FOREST, Losartan/HCTZ was held and patient is now near baseline and will resume normal regimen. Patient is advised close follow up with PCP and Podiatry. - Vitals & Intake/Output Vital Signs: Vital Signs Temperature 98.2 F 11/07/22 07:13 Pulse Rate 79 11/07/22 07:13 Respiratory Rate 18 11/07/22 07:13 Blood Pressure 142/81 11/07/22 07:13 O2 Sat by Pulse Oximetry 91 L 11/07/22 07:13 Intake & Output: Intake & Output 11/04/22 11/05/22 11/06/22 11/07/22 11:59 11:59 11:59 11:59 Intake Total 244 3818 3966 4743 Output Total 3300 Balance 244 3818 3966 1447 Weight 176 kg 180.5 kg 180.6 kg 183 kg - Lab Result Diagrams: 11/07/22 04:24 11/07/22 04:24 Lab Results-Last 24 Hrs: Lab Results-Last 24 Hours 11/06/22 11/06/22 11/06/22 Range/Units 11:26 15:21 21:40 WBC (4.0-10.5) x10^3/uL RBC (4.1-5.6) x10^6/uL Hgb (12.5-18.0) g/dL Hct (42-50) % MCV (78-100) fL MCH (26-32) pg MCHC (32-36) g/dL RDW (11.5-14.0) % Plt Count (150-450) x10^3/uL MPV (7.5-11.0) fL Sodium (137-145) mmol/L Potassium (3.5-5.1) mmol/L Chloride (98-107) mmol/L Carbon Dioxide (22-30) mmol/L Anion Gap (5-15) MEQ/L BUN (9-20) mg/dL Creatinine (0.66-1.25) mg/dL Estimated GFR ML/MIN Glucose (74-106) mg/dL POC Glucometer 166 H 221 H 112 H (74 to 106) mg/dL Calcium (8.4-10.2) mg/dL 11/07/22 11/07/22 11/07/22 Range/Units 04:24 04:24 06:45 WBC 9.2 (4.0-10.5) x10^3/uL RBC 5.14 (4.1-5.6) x10^6/uL Hgb 14.2 (12.5-18.0) g/dL Hct 45.1 (42-50) % MCV 87.7 (78-100) fL MCH 27.6 (26-32) pg MCHC 31.5 L (32-36) g/dL RDW 14.2 H (11.5-14.0) % Plt Count 194 (150-450) x10^3/uL MPV 10.2 (7.5-11.0) fL Sodium 140 (137-145) mmol/L Potassium 3.8 (3.5-5.1) mmol/L Chloride 108 H (98-107) mmol/L Carbon Dioxide 23 (22-30) mmol/L Anion Gap 12.7 (5-15) MEQ/L BUN 11 (9-20) mg/dL Creatinine 1.17 (0.66-1.25) mg/dL Estimated GFR > 60.0 ML/MIN Glucose 73 L (74-106) mg/dL POC Glucometer 166 H (74 to 106) mg/dL Calcium 8.0 L (8.4-10.2) mg/dL 11/07/22 Range/Units 11:05 WBC (4.0-10.5) x10^3/uL RBC (4.1-5.6) x10^6/uL Hgb (12.5-18.0) g/dL Hct (42-50) % MCV (78-100) fL MCH (26-32) pg MCHC (32-36) g/dL RDW (11.5-14.0) % Plt Count (150-450) x10^3/uL MPV (7.5-11.0) fL Sodium (137-145) mmol/L Potassium (3.5-5.1) mmol/L Chloride (98-107) mmol/L Carbon Dioxide (22-30) mmol/L Anion Gap (5-15) MEQ/L BUN (9-20) mg/dL Creatinine (0.66-1.25) mg/dL Estimated GFR ML/MIN Glucose (74-106) mg/dL POC Glucometer 211 H (74 to 106) mg/dL Calcium (8.4-10.2) mg/dL Micro Results-Entire Visit: Microbiology 11/04/22 00:49 Wound Culture - Final Foot - Right Staphylococcus Aureus 11/03/22 19:18 Blood Culture Gram Stain - Final Blood Blood Culture - Preliminary Coagulase Negative Staph. Possible Contaminant. Clinical judgement required. NO FURTHER WORKUP WILL BE PERFORMED UNLESS PHYSICIAN REQUESTED WITHIN THE NEXT 72 HOURS Accuchecks Date 11/07/22 Date 11/06/22 Date 11/06/22 Date 11/06/22 Time 22:00 Time 16:01 Time 11:40 - Procedures and Test Procedures and Tests throughout Hospitalization: Therapy Orders & Screens 11/04/22 02:11 BiPap/CPAP QHS Comment: QHS Diagnosis: Cellulitis right lower extremity, he FOREST, sepsis 11/04/22 02:57 Respiratory Therapy Assessment DAILY Comment: Diagnosis: Cellulitis right lower extremity, he FOREST, sepsis <ANU OROPEZA - Last Filed: 11/07/22 11:12> - Vitals & Intake/Output Vital Signs: Vital Signs Temperature 96.6 F 11/07/22 11:25 Pulse Rate 77 11/07/22 11:25 Respiratory Rate 18 11/07/22 11:25 Blood Pressure 170/91 11/07/22 11:25 O2 Sat by Pulse Oximetry 93 L 11/07/22 11:25 Intake & Output: Intake & Output 11/05/22 11/06/22 11/07/22 11/08/22 11:59 11:59 11:59 11:59 Intake Total 3818 3966 4747 Output Total 3300 Balance 3818 3966 1447 Weight 180.5 kg 180.6 kg 183 kg - Lab Result Diagrams: 11/07/22 04:24 11/07/22 04:24 Lab Results-Last 24 Hrs: Lab Results-Last 24 Hours 11/06/22 11/06/22 11/07/22 Range/Units 15:21 21:40 04:24 WBC 9.2 (4.0-10.5) x10^3/uL RBC 5.14 (4.1-5.6) x10^6/uL Hgb 14.2 (12.5-18.0) g/dL Hct 45.1 (42-50) % MCV 87.7 (78-100) fL MCH 27.6 (26-32) pg MCHC 31.5 L (32-36) g/dL RDW 14.2 H (11.5-14.0) % Plt Count 194 (150-450) x10^3/uL MPV 10.2 (7.5-11.0) fL Sodium (137-145) mmol/L Potassium (3.5-5.1) mmol/L Chloride (98-107) mmol/L Carbon Dioxide (22-30) mmol/L Anion Gap (5-15) MEQ/L BUN (9-20) mg/dL Creatinine (0.66-1.25) mg/dL Estimated GFR ML/MIN Glucose (74-106) mg/dL POC Glucometer 221 H 112 H (74 to 106) mg/dL Calcium (8.4-10.2) mg/dL 11/07/22 11/07/22 11/07/22 Range/Units 04:24 06:45 11:05 WBC (4.0-10.5) x10^3/uL RBC (4.1-5.6) x10^6/uL Hgb (12.5-18.0) g/dL Hct (42-50) % MCV (78-100) fL MCH (26-32) pg MCHC (32-36) g/dL RDW (11.5-14.0) % Plt Count (150-450) x10^3/uL MPV (7.5-11.0) fL Sodium 140 (137-145) mmol/L Potassium 3.8 (3.5-5.1) mmol/L Chloride 108 H (98-107) mmol/L Carbon Dioxide 23 (22-30) mmol/L Anion Gap 12.7 (5-15) MEQ/L BUN 11 (9-20) mg/dL Creatinine 1.17 (0.66-1.25) mg/dL Estimated GFR > 60.0 ML/MIN Glucose 73 L (74-106) mg/dL POC Glucometer 166 H 211 H (74 to 106) mg/dL Calcium 8.0 L (8.4-10.2) mg/dL Micro Results-Entire Visit: Microbiology 11/04/22 00:49 Wound Culture - Final Foot - Right Staphylococcus Aureus 11/03/22 19:18 Blood Culture Gram Stain - Final Blood Blood Culture - Preliminary Coagulase Negative Staph. Possible Contaminant. Clinical judgement required. NO FURTHER WORKUP WILL BE PERFORMED UNLESS PHYSICIAN REQUESTED WITHIN THE NEXT 72 HOURS Accuchecks Date 11/07/22 Date 11/07/22 Date 11/06/22 Date 11/06/22 Time 22:00 Time 16:01 - Procedures and Test Procedures and Tests throughout Hospitalization: Therapy Orders & Screens 11/04/22 02:11 BiPap/CPAP QHS Comment: QHS Diagnosis: Cellulitis right lower extremity, he FOREST, sepsis 11/04/22 02:57 Respiratory Therapy Assessment DAILY Comment: Diagnosis: Cellulitis right lower extremity, he FOREST, sepsis <NATALIE - Last Filed: 11/07/22 14:45> Discharge Exam General Appearance: no apparent distress Neurologic Exam: oriented x 3 Skin Exam: other (RLE with compression dressing) Wound Assessment: Skin/Wound Assessment Wound/Incision Assessment Start: 11/04/22 00:57 Text: Status: Active Freq: Q6H Protocol: Document 11/07/22 09:23 AIDAN (Rec: 11/07/22 09:32 AIDAN [id number]) Wound Photo Photo Taken No <ANU OROPEZA - Last Filed: 11/07/22 11:12> Final Diagnosis/Problem List - Final Discharge Diagnosis/Problem (1) FOREST (acute kidney injury) Status: Acute Code(s): N17.9 - ACUTE KIDNEY FAILURE, UNSPECIFIED (2) Cellulitis of right lower extremity Status: Acute Code(s): L03.115 - CELLULITIS OF RIGHT LOWER LIMB (3) Diabetic ulcer of foot associated with diabetes mellitus due to underlying condition, limited to breakdown of skin Status: Acute Code(s): E08.621 - DIABETES MELLITUS DUE TO UNDERLYING CONDITION W FOOT ULCER; L97.501 - NON-PRS CHR ULCER OTH PRT UNSP FOOT LIMITED TO BRKDWN SKIN (4) Sepsis Status: Acute <ANU OROPEZA - Last Filed: 11/07/22 11:12> - Final Discharge Diagnosis/Problem (1) Cellulitis of right lower extremity Status: Acute Code(s): L03.115 - CELLULITIS OF RIGHT LOWER LIMB <NATALIE MACIAS - Last Filed: 11/07/22 14:45> Telemedicine Encounter - Telemedicine Encounter Telemedicine Encounter: The entirety of this encounter was performed via Telemedicine" <ANU OROPEZA - Last Filed: 11/07/22 11:12> - Telemedicine Encounter Telemedicine Encounter: I have personally seen and examined patient and discussed care with Anu Oropeza NP and reviewed pertinent clinical data including history, physical, and diagnostic findings. I agree with the assessment, and treatment plan as described in her original note. Please see below for my summary of findings and any additional assessment and plan, as well as any meaningful corrections or explanations of their note. My portion of visit was conducted entirely via telemedicine, to which patient consented. 41-year-old man, admitted with right leg cellulitis and acute kidney injury, with a chronic right first toe ulcer. Wound culture was growing MSSA. Dr. Martins with podiatry was consulted, placed an Unna boot on the patient and did a bedside debridement. He will follow-up for weekly Unna boot changes in the podiatry clinic. He will be sent home with a 1 week course of Keflex for the cellulitis. Natalie Macias MD, PhD Internal Medicine Hospitalist [facility] <NATALIE MACIAS - Last Filed: 11/07/22 14:45> <ANU OROPEZA - Last Filed: 11/07/22 11:12> <NATALIE MACIAS - Last Filed: 11/07/22 14:45> - Discharge Disposition: Home, Self-Care Condition: Good Prescriptions: New cephALEXin [Cephalexin] 500 mg PO QID #28 tablet Tramadol HCl 50 mg [Ultram 50 mg] 50 mg PO Q6HPRN PRN #20 tablet PRN Reason: Pain Insulin Aspart [NovoLOG Insulin] 30 unit SQ TIDAC #3000 unit Continue Dapagliflozin/Metformin HCl [Xigduo Xr 5 mg-1,000 mg Tablet] 1 each PO DAILY Metoprolol Tartrate 50 mg [Lopressor 50 MG] 100 mg PO DAILY Meloxicam 15 mg [Meloxicam 15 MG] 15 mg PO DAILY Fexofenadine HCl 180 mg PO DAILY Losartan/Hydrochlorothiazide [Losartan-Hctz 100-25 mg Tab] 1 each PO DAILY Changed Insulin Glargine,Hum.rec.anlog [Basaglar Kwikpen U-100] 70 units SQ BID #4000 units Instructions: Cellulitis (Skin Infection), Adult (DC) Additional Instructions: KEEP DRESSING CLEAN DRY AND INTACT Follow up with: SAVI MARTINS DPM [ACTIVE STAFF] - 11/11/22 3:00 pm LISBETH PARK MD [Primary Care Provider] - 11/20/22 9:00 am Forms: Work/School Release Form
[2022-11-07] MEDS: HUMALOG SQ PRN (11:56)
[2022-11-07] MEDS ORDERED: TROUGH DRUG LEVELS IJ ONE (21:30)
== END 2022-11-07 12:57 | disposition home or self-care (01) | DRG 682 ==
LOC: ED 17:58 → MED SURG 11-04 00:18 → OBSVTOIN 11-04 11:52
PROVIDERS: ADMIT Internal Medicine; ATTEND Internal Medicine
PROC: 2W1LX6Z Compression of Right Lower Extremity using Pressure Dressing (ICD-10-PCS; principal; 2022-11-04)
DX: N17.9 Acute kidney failure, unspecified (principal); A41.9 Sepsis, unspecified organism; L03.115 Cellulitis of right lower limb; L97.511 Non-pressure chronic ulcer of other part of right foot limited to breakdown of skin; E11.621 Type 2 diabetes mellitus with foot ulcer; I10 Essential (primary) hypertension; A49.02 Methicillin resistant Staphylococcus aureus infection, unspecified site; Z79.899 Other long term (current) drug therapy; Z20.828 Contact with and (suspected) exposure to other viral communicable diseases
CPT/HCPCS: 11042; 29580; 36000; 36415; 71045; 73630; 80048; 80053; 80202; 81001; 82947; 83605; 84145; 84484; 85025; 85027; 87040; 87070; 87077; 87186; 87641; 93005; 93971; 94002; 94003; 94760; 96360; 96365; 96367; 96374; 96375; 99221; 99232; 99284; J1170; J1650; J1817; J1885; J2405; J3370; Q3014; A9270-GY

== ENCOUNTER 2023-02-04 13:53 | Day surgery (SDC) | payer BC ==
[~2023-02-04 13:53] MED LIST: Marcaine Mpf 0.5% Vial 30 Ml ONE; Xylocaine 1% Vial 30 ML PF IJ ONE
[2023-02-04] MEDS ORDERED: Lactated Ringers 1,000 ML IV SCH (14:00)
[2023-02-04] MEDS ORDERED: KEFZOL 1 GM** 3 G in Sodium Chloride 0.9% 50 ML 50 ML IV SCH (14:00)
[2023-02-04] MEDS ORDERED: Lactated Ringers 1,000 ML IV ONE (14:02)
[2023-02-04 14:14] LABS: Absolute Neutrophil Ct (ANC) 6.69 x10^3/uL (1.4-6.9); BASOPHIL % 0.6 % (0.0-0.4); Basophil (Absolute #) 0.06 x10^3/uL (0-0.4); Eosinophil % 1.4 % (0.00-5.0); Eosinophil (Absolute #) 0.13 x10^3/uL (0-0.5); Hematocrit 48.9 % (42-50); Hemoglobin 15.9 g/dL (12.5-18.0); IMMATURE GRAN # 0.03 x10^3u/L (0.00-0.03); IMMATURE GRAN % 0.3 % (0.00-0.4); Lymphocyte (Absolute #) 1.73 x10^3/uL (1.0-4.6); Mean Cell Volume 87.9 fL (78-100); Mean Corpuscular Hemoglobin 28.6 pg (26-32); Mean Corpuscular Hgb Concent. 32.5 g/dL (32-36); Mean Platelet Volume 9.9 fL (7.5-11.0); Monocyte (Absolute #) 0.95 x10^3/uL (0.0-1.3); Monocytes % 9.9 % (0.0-12.0); Neutrophil % 69.8 % (36.0-66.0); Platelet Count 235 x10^3/uL (150-450); Red Blood Count 5.56 x10^6/uL (4.1-5.6); Red Cell Distribution Width 14.9 % (11.5-14.0); White Blood Count 9.6 x10^3/uL (4.0-10.5)
[2023-02-04 14:27] LABS: ALBUMIN 4.4 g/dL (3.5-5.0); ANION GAP 16.9 MEQ/L (5-15); BILIRUBIN,TOTAL 0.8 mg/dL (0.2-1.3); Calcium 9.1 mg/dL (8.4-10.2); Creatinine 1 1.24 mg/dL (0.66-1.25); EST GLOMERULAR FILTRATION RATE 72.6 ML/MIN; Potassium 3.6 mmol/L (3.5-5.1); Total Protein 8.4 g/dL (6.3-8.2)
[2023-02-04 14:29] LABS: INR 0.91 (0.8-3.0); PTT 25.6 SECONDS (25.1-36.5)
[2023-02-04] MEDS ORDERED: HUMALOG SQ ONE (14:43)
[2023-02-04] MEDS ORDERED: Sodium Chloride 0.9% 1000 ML 1,000 ML ONE (15:01)
[2023-02-04 16:03] VITALS: TEMP 98
[2023-02-04 16:11] VITALS: O2SAT 96
[2023-02-04 16:16] VITALS: BP 132/72; PULSE 86; RESP 18
--- NOTE | 2023-02-04 16:25 | XRAY ---
Indication: Right removal of proximal phalangeal base. Bony debridement. Intraoperative fluoroscopy provided for 1 minute 29 seconds. 9 digital spot images submitted for interpretation demonstrates partial excision head 1st proximal phalanx. Correlate with intraoperative findings/report.
--- NOTE | 2023-02-04 16:29 | XRAY ---
One minute and 29 seconds of fluoroscopy was used in surgery for a right removal of proximal phalangeal base right hallux and bone debridement.
--- NOTE | 2023-02-12 10:21 | OP ---
SURGERY DATE/TIME: 02/04/2023 1456 PREOPERATIVE DIAGNOSES: 1) Osteomyelitis. 2) Chronic right foot diabetic foot ulcer. 3) Pressure ulceration, right medial interphalangeal joint. 4) Peripheral neuropathy. 5) Diabetes without complication. POSTOPERATIVE DIAGNOSES: 1) Osteomyelitis. 2) Chronic right foot diabetic foot ulcer. 3) Pressure ulceration, right medial interphalangeal joint. 4) Peripheral neuropathy. 5) Diabetes without complication. PROCEDURE: Incision and drainage with bone debridement right hallux with proximal phalangeal osteotomy. SURGEON: Naveed Alfaro DPM. CHIEF INSPECTOR: None. ANESTHESIA: Local. HEMOSTASIS: Ankle tourniquet set to 250 mm of Mercury for approximately 25 total tourniquet minutes. ESTIMATED BLOOD LOSS: Approximately 5 cc. MATERIALS: 4-0 Monocryl, 3-0 Nylon, vancomycin powder. INJECTABLES: 10 cc of 1:1 mixture of 1% lidocaine plain and 0.5% bupivacaine plain injected in a hallux block-type fashion to the right hallux. INDICATION FOR SURGERY: Yeyo is a very pleasant 47-year-old male who is very well known to my service for diabetic ulcers and peripheral neuropathy. The patient has had an ulceration in the past underneath the second metatarsal head which did respond to a floating metatarsal osteotomy. However, approximately one year after that procedure the patient developed an ulceration that was difficult to heal utilizing conservative modality with wound care, off-loading and non-weightbearing. The patient has recently had several bouts of cellulitis as a result of the wound and more definitive measures were necessitated. On top of this, the patient has grown multiple bacteria that are aggressive in nature to the wound and due to the chronic nature of the wound concern was that the patient may have some osteomyelitis associated with the wound. The patient does have to some degree hallux malleus contracture that is flexible in nature which does contribute to the medial interphalangeal joint ulceration. In the past, we tried a medial band plantar fasciotomy which was unsuccessful in alleviating the pressure to this area. At this time, we have opted to do incision and drainage with bone debridement and a partial resection of the proximal phalangeal head in order to see if we can alleviate the pressure to this area and hopefully subsequently heal this wound. The patient understands all risks, complications and benefits of surgical intervention including but not lmited to infection, hematoma, seroma, possibility of delayed wound healing, nonwound healing, possible failure of surgical intervention likely necessitating further surgical intervention at a later date. No guarantees were provided as to the surgical outcome. Plenty of time was allowed for the patient to ask questions which were answered to his apparent satisfaction. It is at this time we decided to proceed. DESCRIPTION OF PROCEDURE AND FINDINGS: The patient is brought into the OR and placed on the OR table in the supine position. At this time, intraoperative block was performed to the right hallux utilizing 10 cc of a 1:1 mixture of lidocaine plain 1% and 0.5% bupivacaine plain injected in a hallux block fashion. At this time, the right foot was prepped and draped in the typical sterile fashion and lowered onto the surgical field. At this time, attention was directed to the medial aspect of the interphalangeal joint. Esmarch was utilized to exsanguinate the foot. Tourniquet was inflated. At this time this was carried down to the level of the interphalangeal joint. From this standpoint, the soft tissue was elevated off of the base of the proximal phalanx so as not to cause any damage to the muscular or neurovascular structures this was retracted utilizing two Trinh. Following this, a Khadijah bur was then utilized to bur into the bone and resecting a portion of the proximal phalanx. Curettage was carried out in the proximal phalangeal medullary cavity. The portion that was pulled from the toe was sent for pathologic assessment. At this time, copious amounts of sterile saline were utilized to flush the surgical site and then vancomycin powder was then introduced. Following this, 4-0 Monocryl was utilized to coapt the subcu skin edges and then the skin was coapted utilizing horizontal mattress-type fashion with 3-0 Nylon. A dressing consisting of Betadine, Adaptic, 4x4, Kerlix and STU was applied to the patient's right lower extremity. The patient was then returned to the preoperative area with no complication. He handled the anesthesia as well as the procedure without complication. Postoperative orders as indicated in the patients discharge chart.
== END 2023-02-04 16:24 | disposition home or self-care (01) ==
LOC: SDC 13:53
PROVIDERS: ATTEND Podiatrist Foot & Ankle Surgery
DX: M86.9 Osteomyelitis, unspecified (principal); E11.621 Type 2 diabetes mellitus with foot ulcer; L89.619 Pressure ulcer of right heel, unspecified stage
CPT/HCPCS: 28005; 28298; 36415; 73630; 76000; 80053; 85025; 85610; 85730; 87046; 87070; 87075; 87116; 87205; 87206; A6260; J0690; J1817; J2001

== ENCOUNTER 2023-04-03 11:01 | Observation (INO) | payer BC ==
[2023-04-03] MEDS ORDERED: TRANDATE 20 MG/4 ML SYRINGE IV ONE ×4 (11:14→13:58)
--- NOTE | 2023-04-03 11:14 | ERPHSYRPT ---
- History of Present Illness Time Seen by Provider: 04/03/23 11:13 Source: patient, family Exam Limitations: no limitations Patient Subjective Stated Complaint: hypertension, headache, chest pain since yesterday Triage Nursing Assessment: Pt was brought to the ER by his brother, hypertensive, tachycardic, rates head and chest pain as 12/15, face is flushed, pulses normal, denies shortness of breath but has been, pt walked into the ER with a stable gait Physician History: This is a 47-year-old morbidly obese patient of Dr. 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 In November 2022 patient completed several cardiac tests. This is per patient report. All the tests were negative for any coronary artery disease. Patient states he underwent a cardiac catheterization, cardiac echocardiogram and cardiac stress test all were negative for any acute ischemia or coronary artery disease. Patient is on at least 5 medications to help control his hypertension. His hypertension has been controlled by Dr. Park. Patient states he took all his blood pressure medications that he supposed to take this morning prior to arrival. However he arrives to the emergency department with systolic blood pressure approximately 220. He has a headache and he has substernal, central, nonradiating chest pressure. Timing/Duration: today Severity: mild (To moderate) Associated Symptoms: chest pain, headaches, No nausea, No vomiting, No abdominal pain, No shortness of breath, No weakness Allergies/Adverse Reactions: morphine Adverse Reaction (Severe, Verified 04/03/23 11:10) aggressive/angry Home Medications: Dapagliflozin/Metformin HCl [Xigduo Xr 5 mg-1,000 mg Tablet] 1 each PO BID 11/04/22 [History] Fexofenadine HCl 180 mg PO DAILY 11/04/22 [History] Losartan/Hydrochlorothiazide [Losartan-Hctz 100-25 mg Tab] 1 each PO DAILY 11/04/22 [History] Metoprolol Tartrate 50 mg [Lopressor 50 MG] 100 mg PO BID 11/04/22 [History] Amlodipine Besylate 10 mg PO DAILY 01/29/23 [History] Aspirin 81 mg PO DAILY 01/29/23 [History] Empagliflozin [Jardiance] 25 mg PO DAILY 01/30/23 [History] Furosemide [Lasix] 40 mg PO BID 01/30/23 [History] HydrALAzine HCL 25 MG TAB [Apresoline 25 MG TABLET] 25 mg PO DAILY 01/30/23 [History] Insulin Glargine,Hum.rec.anlog [Basaglar Kwikpen U-100] 100 unit SQ BID 01/30/23 [History] Isosorbide Mononitrate 60 mg [Imdur 60MG] 120 mg PO DAILY 01/30/23 [History] Nitroglycerin 0.4 mg Tablet [Nitrostat 0.4 MG Tablet] 0.4 mg SL Q5MIN PRN MR X 3 PRN 01/30/23 [History] Potassium Chloride 10 meq PO BID 01/30/23 [History] Sildenafil Citrate 100 mg PO Q12H PRN PRN 01/30/23 [History] Insulin Aspart [NovoLOG Insulin] 0 unit SQ TIDAC 02/04/23 [History] Hx Influenza Vaccination/Date Given: No Hx Pneumococcal Vaccination/Date Given: No Travel Risk - International Travel Have you traveled outside of the country in past 3 weeks: No - Coronavirus Screening Are you exhibiting any of the following symptoms?: No Close contact with a COVID-19 positive Pt in past 14-21 Days: No - Vaccine Status Have you recieved a Covid-19 vaccination: No - Review of Systems Constitutional: No Symptoms Eyes: No Symptoms Ears, Nose, & Throat: No Symptoms Respiratory: No Symptoms Cardiac: Chest Pain (Described as substernal, central, nonradiating pressure) Abdominal/Gastrointestinal: No Symptoms Genitourinary Symptoms: No Symptoms Musculoskeletal: No Symptoms Skin: No Symptoms Neurological: Headache Psychological: No Symptoms Endocrine: No Symptoms Hematologic/Lymphatic: No Symptoms Immunological/Allergic: No Symptoms All Other Systems: Reviewed and Negative - Past Medical History Pertinent Past Medical History: Yes Neurological History: No Pertinent History ENT History: No Pertinent History Cardiac History: Hypertension Respiratory History: Sleep Apnea Endocrine Medical History: Diabetes Type I Musculoskeletal History: Degenerative Disk Disease, Other GI Medical History: No Pertinent History History: No Pertinent History Psycho-Social History: No Pertinent History Male Reproductive Disorders: No Pertinent History Other Medical History: SX HX: BACK SURGERY - ABLATION IN LOWER BACK (VIA PAIN [facility] DR. BILLS) - Past Surgical History Past Surgical History: Yes Neuro Surgical History: No Pertinent History Cardiac: No Pertinent History Respiratory: No Pertinent History Gastrointestinal: Hernia Repair Genitourinary: Other Musculoskeletal: No Pertinent History Male Surgical History: Vasectomy Other Surgical History: lithotripsy,kidney stones removal mutliple, finger repaired as a child - Social History Smoking Status: Former smoker Exposure to second hand smoke: No Drug Use: none Patient Lives Alone: No - Nursing Vital Signs Nursing Vital Signs: Initial Vital Signs Temperature 97.5 F 04/03/23 11:03 Pulse Rate 111 H 04/03/23 11:03 Blood Pressure 222/141 04/03/23 11:03 O2 Sat by Pulse Oximetry 94 L 04/03/23 11:03 Pain Scale Pain Intensity 9 - Physical Exam General Appearance: no apparent distress, alert, anxiety, obese Eye Exam: PERRL/EOMI, eyes nml inspection Ears, Nose, Throat Exam: normal ENT inspection, moist mucous membranes Neck Exam: normal inspection, non-tender, supple, full range of motion Respiratory Exam: normal breath sounds, chest tenderness (Substernal central nonradiating pressure), lungs clear, airway intact, No respiratory distress Cardiovascular Exam: normal peripheral pulses, tachycardia Gastrointestinal/Abdomen Exam: soft, normal bowel sounds, No tenderness Rectal Exam: not done Back Exam: normal inspection, normal range of motion, No CVA tenderness, No vertebral tenderness Extremity Exam: normal inspection, normal range of motion, pelvis stable Neurologic Exam: alert, oriented x 3, cooperative, credit risk specialist II-XII nml as tested, normal mood/affect, nml cerebellar function, nml station & gait, sensation nml Skin Exam: normal color, warm, dry Lymphatic Exam: No adenopathy SpO2 Interpretation: borderline oxygenation SpO2: 94 O2 Delivery: Room Air - Course Nursing assessment & vital signs reviewed: Yes EKG Interpreted by Me: RATE (110), Sinus Tach, NORMAL AXIS, NORMAL INTERVALS, NORMAL QRS, NORMAL ST-T, Other (No acute ischemic changes on today's twelve-lead EKG.) Ordered Tests: Active Orders 24 hr Category Date Time Status Trim Operator STAT Care 04/03/23 11:14 Active EKG-ER Only STAT Care 04/03/23 11:14 Active IV Insertion STAT Care 04/03/23 11:14 Active Pulse Oximetry (ED) STAT Care 04/03/23 11:14 Active CHEST WITH CONTRAST [CT] Stat Exams 04/03/23 12:39 Completed HEAD WITHOUT CONTRAST [CT] Stat Exams 04/03/23 11:16 Completed CBC W DIFF Stat Lab 04/03/23 11:20 Completed CMP Stat Lab 04/03/23 11:20 Completed D-DIMER QUANTITATIVE Stat Lab 04/03/23 11:20 Completed MAGNESIUM Stat Lab 04/03/23 11:20 Completed TROPONIN Q4H Lab 04/03/23 11:20 Completed TROPONIN Q4H Lab 04/03/23 15:15 Ordered TROPONIN Q4H Lab 04/03/23 19:15 Ordered Medication Summary Generic Name Dose Route Start Last Admin Trade Name Freq PRN Reason Stop Dose Admin Sodium Chloride 500 mls @ 50 mls/hr 04/03/23 12:45 04/03/23 12:49 Sodium Chloride 0.9% 500 Ml IV 05/03/23 12:44 50 mls/hr .Q10H JOHN Administration Discontinued Medications Generic Name Dose Route Start Last Admin Trade Name Freq PRN Reason Stop Dose Admin Labetalol HCl 10 mg 04/03/23 11:14 04/03/23 11:27 Labetalol Hcl 20 Mg/4 Ml Disp.Syringe IV 04/03/23 11:15 10 mg STAT ONE Administration Labetalol HCl Confirm 04/03/23 11:26 Labetalol Hcl 20 Mg/4 Ml Disp.Syringe Administered 04/03/23 11:27 Dose 20 mg IV .STK-MED ONE Labetalol HCl 10 mg 04/03/23 13:55 04/03/23 14:01 Labetalol Hcl 20 Mg/4 Ml Disp.Syringe IV 04/03/23 13:56 10 mg STAT ONE Administration Labetalol HCl Confirm 04/03/23 13:58 Labetalol Hcl 20 Mg/4 Ml Disp.Syringe Administered 04/03/23 13:59 Dose 20 mg IV .STK-MED ONE Lab/Rad Data: Laboratory Result Diagrams 04/03/23 11:20 04/03/23 11:20 Laboratory Results 04/03/23 04/03/23 04/03/23 Range/Units 11:20 11:20 11:20 WBC (4.0-10.5) x10^3/uL RBC (4.1-5.6) x10^6/uL Hgb (12.5-18.0) g/dL Hct (42-50) % MCV (78-100) fL MCH (26-32) pg MCHC (32-36) g/dL RDW (11.5-14.0) % Plt Count (150-450) x10^3/uL MPV (7.5-11.0) fL Gran % (36.0-66.0) % Immature Gran % (Auto) (0.00-0.4) % Nucleat RBC Rel Count (0.00-0.1) % Eos # (Auto) (0-0.5) x10^3/uL Immature Gran # (Auto) (0.00-0.03) x10^3u/L Absolute Lymphs (auto) (1.0-4.6) x10^3/uL Absolute Monos (auto) (0.0-1.3) x10^3/uL Absolute Nucleated RBC (0.00-0.01) x10^3u/L Lymphocytes % (24.0-44.0) % Monocytes % (0.0-12.0) % Eosinophils % (0.00-5.0) % Basophils % (0.0-0.4) % Absolute Granulocytes (1.4-6.9) x10^3/uL Basophils # (0-0.4) x10^3/uL D-Dimer 0.53 H (0.0-0.50) mg/L Sodium 136 L (137-145) mmol/L Potassium 4.3 (3.5-5.1) mmol/L Chloride 104 (98-107) mmol/L Carbon Dioxide 22 (22-30) mmol/L Anion Gap 15.3 H (5-15) MEQ/L BUN 15 (9-20) mg/dL Creatinine 0.97 (0.66-1.25) mg/dL Estimated GFR 97.5 ML/MIN Glucose 296 H (74-106) mg/dL Calcium 9.4 (8.4-10.2) mg/dL Magnesium 2.0 (1.6-2.3) mg/dL Total Bilirubin 1.20 (0.2-1.3) mg/dL AST 66 H (17-59) U/L ALT 78 H (0-50) U/L Alkaline Phosphatase 80 (38-126) U/L Troponin I 0.013 (0.000-0.034) ng/mL Serum Total Protein 8.8 H (6.3-8.2) g/dL Albumin 4.3 (3.5-5.0) g/dL 04/03/23 Range/Units 11:20 WBC 7.6 (4.0-10.5) x10^3/uL RBC 5.83 H (4.1-5.6) x10^6/uL Hgb 16.3 (12.5-18.0) g/dL Hct 49.7 (42-50) % MCV 85.2 (78-100) fL MCH 28.0 (26-32) pg MCHC 32.8 (32-36) g/dL RDW 13.3 (11.5-14.0) % Plt Count 225 (150-450) x10^3/uL MPV 10.3 (7.5-11.0) fL Gran % 67.4 H (36.0-66.0) % Immature Gran % (Auto) 0.3 (0.00-0.4) % Nucleat RBC Rel Count 0.0 (0.00-0.1) % Eos # (Auto) 0.21 (0-0.5) x10^3/uL Immature Gran # (Auto) 0.02 (0.00-0.03) x10^3u/L Absolute Lymphs (auto) 1.42 (1.0-4.6) x10^3/uL Absolute Monos (auto) 0.75 (0.0-1.3) x10^3/uL Absolute Nucleated RBC 0.00 (0.00-0.01) x10^3u/L Lymphocytes % 18.7 L (24.0-44.0) % Monocytes % 9.9 (0.0-12.0) % Eosinophils % 2.8 (0.00-5.0) % Basophils % 0.9 (0.0-0.4) % Absolute Granulocytes 5.14 (1.4-6.9) x10^3/uL Basophils # 0.07 (0-0.4) x10^3/uL D-Dimer (0.0-0.50) mg/L Sodium (137-145) mmol/L Potassium (3.5-5.1) mmol/L Chloride (98-107) mmol/L Carbon Dioxide (22-30) mmol/L Anion Gap (5-15) MEQ/L BUN (9-20) mg/dL Creatinine (0.66-1.25) mg/dL Estimated GFR ML/MIN Glucose (74-106) mg/dL Calcium (8.4-10.2) mg/dL Magnesium (1.6-2.3) mg/dL Total Bilirubin (0.2-1.3) mg/dL AST (17-59) U/L ALT (0-50) U/L Alkaline Phosphatase (38-126) U/L Troponin I (0.000-0.034) ng/mL Serum Total Protein (6.3-8.2) g/dL Albumin (3.5-5.0) g/dL - Progress Progress: improved, re-examined Progress Note: 04/03/23 11:41 This patient's medical issue is 1 of at least moderate complexity. The level complexity in the workup performed is based on the review of the patient's past medical history, review of the patient's medication list, review the patient's drug allergy list, history of present illness and physical findings on examinat ion. Workup in this patient includes placement of intravenous line, twelve-lead EKG, D-dimer level, troponin level, CT scan of the head, CBC, CMP. We will also provide the patient with 10 mg intravenous labetalol. He will be on a monitored bed and we will adjust medication accordingly. 04/03/23 13:56 I interpreted the laboratory data results on this patient. Patient's D-dimer was slightly elevated and I ordered a CT scan of the chest with contrast to evaluate for pulmonary embolus or other acute intrathoracic process. The patient's troponin is in the normal range. The 12-lead EKG shows mild sinus tachycardia but no acute ischemic changes. CT scan of the head without contrast is a normal study. This was interpreted by the radiologist. The CT scan of the chest with contrast was also interpreted by the radiologist and I reviewed the impression. The impression is no obvious pulmonary embolus. Small hiatal hernia. No other acute intrathoracic findings. The patient has had a longstanding issue with high blood pressure and is on several medications for this. His blood pressure is improving. His symptoms of headache and chest pain have resolved. We will discharge him to home to follow-up today, 04/03/2023 with his primary care provider for further evaluation and management of his blood pressure issues. 04/03/23 14:52 Although the patient's headache and chest pain have resolved and his blood pressure has improved, the systolic blood pressure is still running between 187 and 193 mmHg with a diastolic blood pressure running between 120 and 130 mmHg. I will contact the hospitalist about admitting this patient to better control his blood pressure. 04/03/23 14:[address] Eng, our telehospitalist and I reviewed the patient history, presenting complaint, workup results and response to medication provided to the patient. We we will admit the patient on a telemetry bed. Patient is agreeable to this. Counseled pt/family regarding: lab results, diagnosis, need for follow-up, rad results Medical Desision Making - Diagnostic Testing Diagnostic test were ordered, analyzed, and reviewed by me: Yes Radiological Interpretation: Reviewed by me, Teleradiologist Report - Risk of complications The pt has a high risk of morbidity or mortality based on: Decision regarding hospitilization or escalation of hosp level of care - Departure Departure Disposition: In-patient Admission Clinical Impression: Headache, Chest pain, Hypertensive urgency Condition: Stable Critical Care Time: Yes Critical Care Time(excluding separately billable procedures): Critical 30-74 m ins (40 minutes) Referrals: LISBETH PARK MD [Primary Care Provider] - Follow up/PCP as directed Additional Instructions: Continue your medication as prescribed. Call your primary care provider today, 04/03/2023, to let him know that you were here in the emergency department and that you had high blood pressure.
[2023-04-03 11:28] LABS: Absolute Neutrophil Ct (ANC) 5.14 x10^3/uL (1.4-6.9); BASOPHIL % 0.9 % (0.0-0.4); Basophil (Absolute #) 0.07 x10^3/uL (0-0.4); Eosinophil % 2.8 % (0.00-5.0); Eosinophil (Absolute #) 0.21 x10^3/uL (0-0.5); Hematocrit 49.7 % (42-50); Hemoglobin 16.3 g/dL (12.5-18.0); IMMATURE GRAN # 0.02 x10^3u/L (0.00-0.03); IMMATURE GRAN % 0.3 % (0.00-0.4); Lymphocyte (Absolute #) 1.42 x10^3/uL (1.0-4.6); Lymphocytes % 18.7 % (24.0-44.0); Mean Cell Volume 85.2 fL (78-100); Mean Corpuscular Hgb Concent. 32.8 g/dL (32-36); Mean Platelet Volume 10.3 fL (7.5-11.0); Monocyte (Absolute #) 0.75 x10^3/uL (0.0-1.3); Monocytes % 9.9 % (0.0-12.0); Neutrophil % 67.4 % (36.0-66.0); Platelet Count 225 x10^3/uL (150-450); Red Blood Count 5.83 x10^6/uL (4.1-5.6); Red Cell Distribution Width 13.3 % (11.5-14.0); White Blood Count 7.6 x10^3/uL (4.0-10.5)
[2023-04-03 11:42] LABS: ALBUMIN 4.3 g/dL (3.5-5.0); ANION GAP 15.3 MEQ/L (5-15); BILIRUBIN,TOTAL 1.2 mg/dL (0.2-1.3); Calcium 9.4 mg/dL (8.4-10.2); Creatinine 1 0.97 mg/dL (0.66-1.25); EST GLOMERULAR FILTRATION RATE 97.5 ML/MIN; Potassium 4.3 mmol/L (3.5-5.1); Total Protein 8.8 g/dL (6.3-8.2)
--- NOTE | 2023-04-03 12:05 | XRAY ---
Indication: Headache. Hypertension. Multiple contiguous axial images obtained through the head without contrast. Comparison: None Normal appearing brain parenchyma, ventricles, and bony calvarium for patient's age. Visualized paranasal sinuses and mastoid air cells are clear. Impression: Normal CT head without contrast exam.
[2023-04-03] MEDS ORDERED: Sodium Chloride 0.9% 500 ML 500 ML IV SCH (12:45)
[2023-04-03] MEDS ORDERED: Sodium Chloride 0.9% 500 ML 500 ML IV ONE (12:48)
--- NOTE | 2023-04-03 13:35 | XRAY ---
Indication: Chest pain. Elevated d-dimer. Multiple contiguous axial images obtained through the chest using 100 cc Isovue 370 contrast and PE protocol. Comparison: None Good opacification pulmonary arteries. Mild respiration artifact limits evaluation for pulmonary embolus. No obvious pulmonary embolus. Heart borderline enlarged. Aorta is normal in course and caliber. No pathologic mediastinal/hilar lymphadenopathy. Small hiatal hernia. Lungs inflated and clear. Bony thorax intact. Limited upper abdomen demonstrates fatty liver, 1 cm left/right renal cysts, and 8 mm nonobstructing right renal stone. Impression: 1. Respiration artifact limits pulmonary embolus evaluation. No obvious pulmonary embolus. 2. Incidental hiatal hernia, fatty liver, nonobstructing right renal stone, and bilateral renal cysts. 3. Remaining CT chest with contrast exam is negative.
[2023-04-03] MEDS ORDERED: Zofran 4 MG/2 ML VIAL IV PRN ×2 (15:30→16:55)
[2023-04-03] MEDS ORDERED: TYLENOL 325 MG PO PRN (15:30)
--- NOTE | 2023-04-03 15:53 | PCM.HP ---
History of Present Illness - Chief Complaint Chief Complaint: Hypertensive emergency Date: 04/03/23 History of Present Illness: is a 47 year old male with a pmhx of morbid obesity, HTN, EARL, insulin dependent diabetes, DDD , and chronic angina who presented to ED 04/03/23 with complaints of a headache and persistent hypertension BP max 220/145. He denies vision changes, heart palpitations, shortness of breath, or dizziness. Patient states that he has been under the care of his PCP Dr. Holloway and Dr. Carie Ryan for the past several months for management of his hypertension and has been prescribed multiple medications. He has underwent cardiac catherization, renal artery doppler, and abdominal arterial us which have all come back unremarkable. Patient states that his blood pressure has been consistently >195 systolic and >100 diastolic for several months despite medication changes. He additionally reports that he had severe substernal/non-radiating chest pain yesterday with associated diaphoresis. Later he developed a headache which prompted him to ch tony his blood pressure which was more elevated more diastolically than normal. In ED patient presented tachycardic and hypertensive with BP at 222/141. CT head with no acute findings. CT chest with no obvious PE, incidental hiatal hernia, fatty liver, and nonobstructing right renal stone, as well as bilateral renal cysts. EKG with sinus tachycardia no cute ischemic changes. Lab findings remarkable for elevated Ddimer at 0.53, sodium at 136, GAP at 15.3, blood glucose level at 296, AST at 66, ALT at 78, serum protein at 8.8. Patient was given labetalol. - Review of Systems Constitutional: No Symptoms Eyes: No Symptoms Ears, Nose, & Throat: No Symptoms Respiratory: No Symptoms Cardiac: No Symptoms Abdominal/Gastrointestinal: No Symptoms Genitourinary Symptoms: No Symptoms Musculoskeletal: No Symptoms Skin: Other (Right foot with recent surgery, in boot) Neurological: Headache Psychological: No Symptoms Endocrine: No Symptoms Medications & Allergies Home Medications: Home Medication List Dapagliflozin/Metformin HCl [Xigduo Xr 5 mg-1,000 mg Tablet] 1 each PO BID 11/04/22 [History Confirmed 04/03/23] Fexofenadine HCl 180 mg PO DAILY 11/04/22 [History Confirmed 04/03/23] Losartan/Hydrochlorothiazide [Losartan-Hctz 100-25 mg Tab] 1 each PO DAILY 11/04/22 [History Confirmed 04/03/23] Metoprolol Tartrate 50 mg [Lopressor 50 MG] 100 mg PO BID 11/04/22 [History Confirmed 04/03/23] Amlodipine Besylate 10 mg PO DAILY 01/29/23 [History Confirmed 04/03/23] Aspirin 81 mg PO DAILY 01/29/23 [History Confirmed 04/03/23] Empagliflozin [Jardiance] 25 mg PO DAILY 01/30/23 [History Confirmed 04/03/23] Furosemide [Lasix] 40 mg PO BID 01/30/23 [History Confirmed 04/03/23] HydrALAzine HCL 25 MG TAB [Apresoline 25 MG TABLET] 25 mg PO DAILY 01/30/23 [History Confirmed 04/03/23] Insulin Glargine,Hum.rec.anlog [Basaglar Kwikpen U-100] 100 unit SQ BID 01/30/23 [History Confirmed 04/03/23] Isosorbide Mononitrate 60 mg [Imdur 60MG] 120 mg PO DAILY 01/30/23 [History Confirmed 04/03/23] Nitroglycerin 0.4 mg Tablet [Nitrostat 0.4 MG Tablet] 0.4 mg SL Q5MIN PRN MR X 3 PRN 01/30/23 [History Confirmed 04/03/23] Potassium Chloride 10 meq PO BID 01/30/23 [History Confirmed 04/03/23] Sildenafil Citrate 100 mg PO Q12H PRN PRN 01/30/23 [History Confirmed 04/03/23] Insulin Aspart [NovoLOG Insulin] 0 unit SQ TIDAC 02/04/23 [History Confirmed 04/03/23] Allergies/Adverse Reactions: Allergies Allergy/AdvReac Type Severity Reaction Status Date / Time morphine AdvReac Severe aggressive/ Verified 04/03/23 11:10 angry - Past Medical History Past Medical History: Yes Neurological History: No Pertinent History ENT History: No Pertinent History Cardiac History: Hypertension Respiratory History: Sleep Apnea Endocrine Medical History: Diabetes Type I Musculoskelatal History: Degenerative Disk Disease, Other GI Medical History: No Pertinent History History: Other Pyscho-Social History: No Pertinent History Male Reproductive Disorders: No Pertinent History Comment: SX HX: BACK SURGERY - ABLATION IN LOWER BACK (VIA [facility] DR. BILLS). Kidney stones - Past Surgical History Past Surgical History: Yes Neuro Surgical History: No Pertinent History Cardiac History: No Pertinent History Respiratory Surgery: No Pertinent History GI Surgical History: Hernia Repair Genitourinary Surgical Hx: Other Musculskeletal Surgical Hx: No Pertinent History Male Surgical History: Vasectomy Other Surgical History: lithotripsy,kidney stones removal mutliple, finger repaired as a child - Social History Smoking Status: Former smoker Exposure to second hand smoke: No Alcohol: None Drug Use: none - Physical Exam Vital Signs: Vital Signs - 24 hr Temp Pulse Resp BP BP Pulse Ox 04/03/23 15:02 94 L 04/03/23 15:00 86 21 197/131 96 04/03/23 14:50 86 25 H 183/127 96 04/03/23 14:40 84 24 193/130 98 04/03/23 14:30 92 H 20 205/141 97 04/03/23 14:20 96 H 21 187/121 98 04/03/23 14:10 81 23 191/125 95 04/03/23 14:01 86 22 182/130 97 04/03/23 13:00 85 26 H 183/138 96 04/03/23 12:50 86 19 185/122 95 04/03/23 12:40 86 25 H 196/119 96 04/03/23 12:30 89 23 197/119 93 L 04/03/23 12:20 86 22 186/140 94 L 04/03/23 12:10 88 24 183/131 95 04/03/23 12:02 92 H 18 191/120 95 04/03/23 11:40 93 H 20 196/139 95 04/03/23 11:32 92 L 04/03/23 11:30 90 19 193/124 93 L 04/03/23 11:20 96 H 19 209/125 95 04/03/23 11:03 97.5 F 111 H 222/141 94 L General Appearance: no apparent distress Neurologic Exam: alert, oriented x 3, cooperative Eye Exam: PERRL/EOMI Ears, Nose, Throat Exam: normal ENT inspection Neck Exam: normal inspection Respiratory Exam: normal breath sounds, lungs clear Cardiovascular Exam: tachycardia Gastrointestinal/Abdomen Exam: soft, normal bowel sounds Rectal Exam: deferred Back Exam: normal inspection Extremity Exam: swelling (R>L 2+ non-pitting edema, right foot in boot from recent surgical procedure) Skin Exam: normal color Results - Labs Lab/Micro Results: Lab Results-Last 24 Hours 04/03/23 04/03/23 04/03/23 Range/Units 11:20 11:20 11:20 WBC 7.6 (4.0-10.5) x10^3/uL RBC 5.83 H (4.1-5.6) x10^6/uL Hgb 16.3 (12.5-18.0) g/dL Hct 49.7 (42-50) % MCV 85.2 (78-100) fL MCH 28.0 (26-32) pg MCHC 32.8 (32-36) g/dL RDW 13.3 (11.5-14.0) % Plt Count 225 (150-450) x10^3/uL MPV 10.3 (7.5-11.0) fL Gran % 67.4 H (36.0-66.0) % Immature Gran % (Auto) 0.3 (0.00-0.4) % Nucleat RBC Rel Count 0.0 (0.00-0.1) % Eos # (Auto) 0.21 (0-0.5) x10^3/uL Immature Gran # (Auto) 0.02 (0.00-0.03) x10^3u/L Absolute Lymphs (auto) 1.42 (1.0-4.6) x10^3/uL Absolute Monos (auto) 0.75 (0.0-1.3) x10^3/uL Absolute Nucleated RBC 0.00 (0.00-0.01) x10^3u/L Lymphocytes % 18.7 L (24.0-44.0) % Monocytes % 9.9 (0.0-12.0) % Eosinophils % 2.8 (0.00-5.0) % Basophils % 0.9 (0.0-0.4) % Absolute Granulocytes 5.14 (1.4-6.9) x10^3/uL Basophils # 0.07 (0-0.4) x10^3/uL D-Dimer 0.53 H (0.0-0.50) mg/L Sodium 136 L (137-145) mmol/L Potassium 4.3 (3.5-5.1) mmol/L Chloride 104 (98-107) mmol/L Carbon Dioxide 22 (22-30) mmol/L Anion Gap 15.3 H (5-15) MEQ/L BUN 15 (9-20) mg/dL Creatinine 0.97 (0.66-1.25) mg/dL Estimated GFR 97.5 ML/MIN Glucose 296 H (74-106) mg/dL Calcium 9.4 (8.4-10.2) mg/dL Magnesium 2.0 (1.6-2.3) mg/dL Total Bilirubin 1.20 (0.2-1.3) mg/dL AST 66 H (17-59) U/L ALT 78 H (0-50) U/L Alkaline Phosphatase 80 (38-126) U/L Troponin I (0.000-0.034) ng/mL Serum Total Protein 8.8 H (6.3-8.2) g/dL Albumin 4.3 (3.5-5.0) g/dL 04/03/23 Range/Units 11:20 WBC (4.0-10.5) x10^3/uL RBC (4.1-5.6) x10^6/uL Hgb (12.5-18.0) g/dL Hct (42-50) % MCV (78-100) fL MCH (26-32) pg MCHC (32-36) g/dL RDW (11.5-14.0) % Plt Count (150-450) x10^3/uL MPV (7.5-11.0) fL Gran % (36.0-66.0) % Immature Gran % (Auto) (0.00-0.4) % Nucleat RBC Rel Count (0.00-0.1) % Eos # (Auto) (0-0.5) x10^3/uL Immature Gran # (Auto) (0.00-0.03) x10^3u/L Absolute Lymphs (auto) (1.0-4.6) x10^3/uL Absolute Monos (auto) (0.0-1.3) x10^3/uL Absolute Nucleated RBC (0.00-0.01) x10^3u/L Lymphocytes % (24.0-44.0) % Monocytes % (0.0-12.0) % Eosinophils % (0.00-5.0) % Basophils % (0.0-0.4) % Absolute Granulocytes (1.4-6.9) x10^3/uL Basophils # (0-0.4) x10^3/uL D-Dimer (0.0-0.50) mg/L Sodium (137-145) mmol/L Potassium (3.5-5.1) mmol/L Chloride (98-107) mmol/L Carbon Dioxide (22-30) mmol/L Anion Gap (5-15) MEQ/L BUN (9-20) mg/dL Creatinine (0.66-1.25) mg/dL Estimated GFR ML/MIN Glucose (74-106) mg/dL Calcium (8.4-10.2) mg/dL Magnesium (1.6-2.3) mg/dL Total Bilirubin (0.2-1.3) mg/dL AST (17-59) U/L ALT (0-50) U/L Alkaline Phosphatase (38-126) U/L Troponin I 0.013 (0.000-0.034) ng/mL Serum Total Protein (6.3-8.2) g/dL Albumin (3.5-5.0) g/dL - Radiology Impressions Radiology Exams & Impressions: Radiology Procedures Category Date Time Status CHEST WITH CONTRAST [CT] Stat Exams 04/03/23 12:39 Completed HEAD WITHOUT CONTRAST [CT] Stat Exams 04/03/23 11:16 Completed - Other Procedures and Tests Respiratory Therapy 04/03/23 15:30 EKG REPEAT IN AM Assessment/Plan (1) Hypertensive urgency Current Visit: Yes Status: Acute Assessment & Plan: -nicardipine drip at 10mg/hour -will check urine metanephrine 24 hour urine ?pheochromacytoma/plasma norepinephrine/epinephrine Code(s): I16.0 - HYPERTENSIVE URGENCY (2) Chest pain Current Visit: Yes Status: Acute Assessment & Plan: -2 gm Na diet - cardiology consult not available, consider transfer if appropriate -CT chest no acute cardiopulmonary disease -start ASA and NTG sublingual PRN -serial troponin and ECG -Echo reviewed from 01/28/23 showing: EF 55% IMPRESSION: 1) NORMAL CONTRACTILITY OF THE LEFT VENTRICLE. 2) MILD MITRAL REGURGITATION. 3) MILD PULMONIC REGURGITATION. 4) MILD AORTIC ROOT DILATATION -Abominal arterial US from 02/17/23 reviewed showing: Impression: Renal artery sonogram negative for critical stenosis/obstruction. CTA may yield further information if there remains clinical concern. -CBC, CMP, Mg, Phos, lipid panel, HgbA1c in am -continue appropriate baseline home medications -DVT prophylaxis-Lovenox 40 mg SQ daily Code(s): R07.9 - CHEST PAIN, UNSPECIFIED (3) Diabetes mellitus with insulin therapy Current Visit: Yes Status: Acute Assessment & Plan: -ADA diet -A1c -Continue home glargine insulin regimen (verified 100 u bid), with SSI, hold metformin for now Code(s): E11.9 - TYPE 2 DIABETES MELLITUS WITHOUT COMPLICATIONS; Z79.4 - USP (CURRENT) USE OF INSULIN (4) Headache Current Visit: Yes Status: Acute Assessment & Plan: -see hypertensive emergency -supportive measures, pain control Code(s): R51.9 - HEADACHE, UNSPECIFIED (5) Elevated blood protein Current Visit: Yes Status: Acute Assessment & Plan: -serum protein electrophoresis Code(s): R77.9 - ABNORMALITY OF PLASMA PROTEIN, UNSPECIFIED
[2023-04-03] MEDS ORDERED: Nitrostat 0.4 MG Tablet SL PRN (17:02)
[2023-04-03] MEDS: JARDIANCE PO SCH (17:32)
[2023-04-03] MEDS: ENOXAPARIN SODIUM SQ SCH (17:34)
[2023-04-03] MEDS: CARDENE*** 25 MG in Sodium Chloride 0.9% 250 ML 240 ML IV PRN ×2 (17:36→20:24)
[2023-04-03] MEDS: ECOTRIN 81 MG PO SCH (17:39)
[2023-04-03] MEDS: CLARITIN 10 MG PO SCH (17:39)
[2023-04-03] MEDS: Lasix 40 MG PO SCH (17:39)
[2023-04-03] MEDS: hydroDIURIL 25 MG PO SCH (17:39)
[2023-04-03] MEDS: Cozaar 50 MG PO SCH (17:39)
[2023-04-03] MEDS: PERCOCET TABLET 5/325MG PO PRN ×2 (17:51→21:00)
[2023-04-03] MEDS ORDERED: CARDENE IV ONE (20:02)
[2023-04-03] MEDS ORDERED: Sodium Chloride 0.9% 250 ML 250 ML IV ONE (20:02)
[2023-04-03 20:28] LABS: Risk Ratio 7.2; TSH, 3RD Generation 1.93 mIU/L (0.47-4.68)
[2023-04-03] MEDS: Lopressor 50 MG PO SCH (21:00)
[2023-04-03] MEDS: Lantus Insulin SQ SCH (21:00)
[2023-04-03] MEDS: Klor Con PO SCH (21:00)
[2023-04-03] MEDS: HUMALOG SQ PRN (21:01)
[2023-04-04] MEDS ORDERED: TRANDATE 20 MG/4 ML SYRINGE IV PRN (03:42)
[2023-04-04 05:09] LABS: Absolute Neutrophil Ct (ANC) 5.73 x10^3/uL (1.4-6.9); BASOPHIL % 0.9 % (0.0-0.4); Basophil (Absolute #) 0.08 x10^3/uL (0-0.4); Eosinophil % 2.7 % (0.00-5.0); Eosinophil (Absolute #) 0.25 x10^3/uL (0-0.5); Hematocrit 51.3 % (42-50); Hemoglobin 16.3 g/dL (12.5-18.0); IMMATURE GRAN # 0.04 x10^3u/L (0.00-0.03); IMMATURE GRAN % 0.4 % (0.00-0.4); Lymphocyte (Absolute #) 2.32 x10^3/uL (1.0-4.6); Lymphocytes % 24.9 % (24.0-44.0); Mean Cell Volume 86.8 fL (78-100); Mean Corpuscular Hemoglobin 27.6 pg (26-32); Mean Corpuscular Hgb Concent. 31.8 g/dL (32-36); Mean Platelet Volume 10.5 fL (7.5-11.0); Monocyte (Absolute #) 0.91 x10^3/uL (0.0-1.3); Monocytes % 9.8 % (0.0-12.0); Neutrophil % 61.3 % (36.0-66.0); Platelet Count 230 x10^3/uL (150-450); Red Blood Count 5.91 x10^6/uL (4.1-5.6); Red Cell Distribution Width 13.6 % (11.5-14.0); White Blood Count 9.3 x10^3/uL (4.0-10.5)
[2023-04-04 05:25] LABS: ALBUMIN 4.1 g/dL (3.5-5.0); ANION GAP 12.9 MEQ/L (5-15); BILIRUBIN,TOTAL 0.9 mg/dL (0.2-1.3); Calcium 9.5 mg/dL (8.4-10.2); Creatinine 1 1.17 mg/dL (0.66-1.25); EST GLOMERULAR FILTRATION RATE 77.9 ML/MIN; Potassium 3.5 mmol/L (3.5-5.1); Total Protein 8.2 g/dL (6.3-8.2)
--- NOTE | 2023-04-04 05:37 | PCM.NOTE ---
Date and Time: 04/04/23 0534 Subjective Assessment: History of Present Illness: is a 47 year old male with a pmhx of morbid obesity, HTN, EARL, insulin dependent diabetes, DDD , and chronic angina who presented to ED 04/03/23 with complaints of a headache and persistent hypertension BP max 220/145. He denies vision changes, heart palpitations, shortness of breath, or dizziness. Patient states that he has been under the care of his PCP Dr. Holloway and Dr. Carie Ryan for the past several months for management of his hypertension and has been prescribed multiple medications. He has underwent cardiac catherization, renal artery doppler, and abdominal arterial us which have all come back unremarkable. Patient states that his blood pressure has been consistently >195 systolic and >100 diastolic for several months despite medication changes. He additionally reports that he had severe substernal/non-radiating chest pain yesterday with associated diaphoresis. Later he developed a headache which prompted him to check his blood pressure which was more elevated more diastolically than normal. In ED patient presented tachycardic and hypertensive with BP at 222/141. CT head with no acute findings. CT chest with no obvious PE, incidental hiatal hernia, fatty liver, and nonobstructing right renal stone, as well as bilateral renal cysts. EKG with sinus tachycardia no cute ischemic changes. Lab findings remarkable for elevated Ddimer at 0.53, sodium at 136, GAP at 15.3, blood glucose level at 296, AST at 66, ALT at 78, serum protein at 8.8. Patient was given labetalol in ED, patient admitted for hypertensive urgency, transferred to ICU and started on nicardipine drip with noted improvement in BP. Amlodipine has been reduced to 5mg daily. Hydralazine increased to 100mg TID. Lasix has been discontinued. 04/04: Met with patient bedside. No overnight events noted. BP has improved with nicardipine drip which is now discontinued, BP remain stable. Patient does endorse headache, but this has improved. Discussed referral to hypertensive specialist as OP on discharge. We are considering pheochromocytoma in our differential. Lab testing ordered to evaluate, advised patient this testing will not be completed during admission but his specialty care provider may access it. Denies fever,cough, sob, cp, abdominal pain, dizziness, N/V/D. - Review of Systems Constitutional: No Symptoms Eyes: No Symptoms Ears, Nose, & Throat: No Symptoms Respiratory: No Symptoms Cardiac: No Symptoms Abdominal/Gastrointestinal: No Symptoms Genitourinary Symptoms: No Symptoms Musculoskeletal: No Symptoms Skin: No Symptoms Neurological: Headache Psychological: No Symptoms Endocrine: No Symptoms Hematologic/Lymphatic: No Symptoms Immunological/Allergic: No Symptoms Objective Exam General Appearance: no apparent distress Neurologic Exam: alert, oriented x 3, cooperative Skin Exam: normal color Wound Assessment: Skin/Wound Assessment Wound/Incision Assessment Start: 04/03/23 16:46 Text: Status: Active Freq: Q6H Protocol: Document 04/04/23 02:00 DUANE (Rec: 04/04/23 03:21 DUANE [id number]) Wound/Incision Assessment Right Distal Toe Wound Assessment Shift Assessment Wound Type Incision Dressing Status Dry & Intact Drainage Amount None Drainage Odor None/Absent General Appearance Sutures Intact,Reddened Length (cm) (cm) 2 Width (cm) (cm) 2 Surrounding Tissue Bright Red Primary Dressing Non-Adherent Gauze Pads Secondary Dressing Kerlix Comment dressing CDI, unchanged. Wound Photo Photo Taken No Eye Exam: PERRL Ears, Nose, Throat Exam: normal ENT inspection Neck Exam: normal inspection Respiratory Exam: normal breath sounds, lungs clear Cardiovascular Exam: regular rate/rhythm, normal heart sounds Gastrointestinal/Abdomen Exam: soft, normal bowel sounds Extremity Exam: normal inspection, other (RLE in boot) Back Exam: normal inspection Male Genitalia Exam: deferred Rectal Exam: deferred OBJECTIVE DATA Vital Signs: Vital Signs - 24 hr Temp Pulse Resp BP BP BP Pulse Ox 04/04/23 05:01 98.2 F 65 15 124/85 94 L 04/04/23 04:01 71 14 123/85 94 L 04/04/23 04:00 71 04/04/23 03:00 67 15 136/89 95 04/04/23 02:00 63 17 122/80 98 04/04/23 01:00 70 117/75 04/04/23 00:00 75 12 114/73 95 04/03/23 23:53 77 04/03/23 23:00 70 16 108/77 92 L 04/03/23 22:01 85 20 109/78 93 L 04/03/23 21:01 87 18 123/82 92 L 04/03/23 20:12 101 H 19 146/90 93 L 04/03/23 20:00 116/80 95 04/03/23 19:54 102 H 04/03/23 19:45 100 H 20 132/80 93 L 04/03/23 19:30 107 H 17 123/79 93 L 04/03/23 19:15 108 H 24 143/86 93 L 04/03/23 19:00 108 H 27 H 138/89 94 L 04/03/23 18:45 101 H 21 137/90 94 L 04/03/23 18:30 102 H 30 H 139/93 93 L 04/03/23 18:15 108 H 26 H 146/93 96 04/03/23 18:00 106 H 24 132/109 95 04/03/23 17:46 105 H 17 146/118 97 04/03/23 17:29 97 H 24 207/135 96 04/03/23 16:50 212/124 198/130 04/03/23 15:43 97.8 F 84 16 205/120 98 04/03/23 15:02 94 L 04/03/23 15:00 86 21 197/131 96 04/03/23 14:50 86 25 H 183/127 96 04/03/23 14:40 84 24 193/130 98 04/03/23 14:30 92 H 20 205/141 97 04/03/23 14:20 96 H 21 187/121 98 04/03/23 14:10 81 23 191/125 95 04/03/23 14:01 86 22 182/130 97 04/03/23 13:00 85 26 H 183/138 96 04/03/23 12:50 86 19 185/122 95 04/03/23 12:40 86 25 H 196/119 96 04/03/23 12:30 89 23 197/119 93 L 04/03/23 12:20 86 22 186/140 94 L 04/03/23 12:10 88 24 183/131 95 04/03/23 12:02 92 H 18 191/120 95 04/03/23 11:40 93 H 20 196/139 95 04/03/23 11:32 92 L 04/03/23 11:30 90 19 193/124 93 L 04/03/23 11:20 96 H 19 209/125 95 04/03/23 11:03 97.5 F 111 H 222/141 94 L Pain Assessment - Last Documented Pain Intensity 5 Pain Scale Used 0-10 Pain Scale Intake and Output: Intake & Output 04/01/23 04/02/23 04/03/23 04/04/23 11:59 11:59 11:59 11:59 Intake Total 600 Balance 600 Weight 172.365 kg 178.9 kg Lab Results: Lab Results-Last 24 Hours 04/03/23 04/03/23 04/03/23 Range/Units 11:20 11:20 11:20 WBC 7.6 (4.0-10.5) x10^3/uL RBC 5.83 H (4.1-5.6) x10^6/uL Hgb 16.3 (12.5-18.0) g/dL Hct 49.7 (42-50) % MCV 85.2 (78-100) fL MCH 28.0 (26-32) pg MCHC 32.8 (32-36) g/dL RDW 13.3 (11.5-14.0) % Plt Count 225 (150-450) x10^3/uL MPV 10.3 (7.5-11.0) fL Gran % 67.4 H (36.0-66.0) % Immature Gran % (Auto) 0.3 (0.00-0.4) % Nucleat RBC Rel Count 0.0 (0.00-0.1) % Eos # (Auto) 0.21 (0-0.5) x10^3/uL Immature Gran # (Auto) 0.02 (0.00-0.03) x10^3u/L Absolute Lymphs (auto) 1.42 (1.0-4.6) x10^3/uL Absolute Monos (auto) 0.75 (0.0-1.3) x10^3/uL Absolute Nucleated RBC 0.00 (0.00-0.01) x10^3u/L Lymphocytes % 18.7 L (24.0-44.0) % Monocytes % 9.9 (0.0-12.0) % Eosinophils % 2.8 (0.00-5.0) % Basophils % 0.9 (0.0-0.4) % Absolute Granulocytes 5.14 (1.4-6.9) x10^3/uL Basophils # 0.07 (0-0.4) x10^3/uL D-Dimer 0.53 H (0.0-0.50) mg/L Sodium 136 L (137-145) mmol/L Potassium 4.3 (3.5-5.1) mmol/L Chloride 104 (98-107) mmol/L Carbon Dioxide 22 (22-30) mmol/L Anion Gap 15.3 H (5-15) MEQ/L BUN 15 (9-20) mg/dL Creatinine 0.97 (0.66-1.25) mg/dL Estimated GFR 97.5 ML/MIN Glucose 296 H (74-106) mg/dL POC Glucometer (74 to 106) mg/dL Hemoglobin A1c (4.5-6.0) % Calcium 9.4 (8.4-10.2) mg/dL Magnesium 2.0 (1.6-2.3) mg/dL Total Bilirubin 1.20 (0.2-1.3) mg/dL AST 66 H (17-59) U/L ALT 78 H (0-50) U/L Alkaline Phosphatase 80 (38-126) U/L Troponin I (0.000-0.034) ng/mL Serum Total Protein 8.8 H (6.3-8.2) g/dL Albumin 4.3 (3.5-5.0) g/dL Triglycerides (30-150) mg/dL Cholesterol (50-200) mg/dL LDL Cholesterol (30-100) mg/dL HDL Cholesterol (40-60) mg/dL Heart Disease Risk Ratio TSH 3rd Generation (0.47-4.68) mIU/L 04/03/23 04/03/23 04/03/23 Range/Units 11:20 15:37 15:45 WBC (4.0-10.5) x10^3/uL RBC (4.1-5.6) x10^6/uL Hgb (12.5-18.0) g/dL Hct (42-50) % MCV (78-100) fL MCH (26-32) pg MCHC (32-36) g/dL RDW (11.5-14.0) % Plt Count (150-450) x10^3/uL MPV (7.5-11.0) fL Gran % (36.0-66.0) % Immature Gran % (Auto) (0.00-0.4) % Nucleat RBC Rel Count (0.00-0.1) % Eos # (Auto) (0-0.5) x10^3/uL Immature Gran # (Auto) (0.00-0.03) x10^3u/L Absolute Lymphs (auto) (1.0-4.6) x10^3/uL Absolute Monos (auto) (0.0-1.3) x10^3/uL Absolute Nucleated RBC (0.00-0.01) x10^3u/L Lymphocytes % (24.0-44.0) % Monocytes % (0.0-12.0) % Eosinophils % (0.00-5.0) % Basophils % (0.0-0.4) % Absolute Granulocytes (1.4-6.9) x10^3/uL Basophils # (0-0.4) x10^3/uL D-Dimer (0.0-0.50) mg/L Sodium (137-145) mmol/L Potassium (3.5-5.1) mmol/L Chloride (98-107) mmol/L Carbon Dioxide (22-30) mmol/L Anion Gap (5-15) MEQ/L BUN (9-20) mg/dL Creatinine (0.66-1.25) mg/dL Estimated GFR ML/MIN Glucose (74-106) mg/dL POC Glucometer 114 H (74 to 106) mg/dL Hemoglobin A1c (4.5-6.0) % Calcium (8.4-10.2) mg/dL Magnesium (1.6-2.3) mg/dL Total Bilirubin (0.2-1.3) mg/dL AST (17-59) U/L ALT (0-50) U/L Alkaline Phosphatase (38-126) U/L Troponin I 0.013 0.014 (0.000-0.034) ng/mL Serum Total Protein (6.3-8.2) g/dL Albumin (3.5-5.0) g/dL Triglycerides (30-150) mg/dL Cholesterol (50-200) mg/dL LDL Cholesterol (30-100) mg/dL HDL Cholesterol (40-60) mg/dL Heart Disease Risk Ratio TSH 3rd Generation (0.47-4.68) mIU/L 04/03/23 04/03/23 04/03/23 Range/Units 16:54 19:30 20:57 WBC (4.0-10.5) x10^3/uL RBC (4.1-5.6) x10^6/uL Hgb (12.5-18.0) g/dL Hct (42-50) % MCV (78-100) fL MCH (26-32) pg MCHC (32-36) g/dL RDW (11.5-14.0) % Plt Count (150-450) x10^3/uL MPV (7.5-11.0) fL Gran % (36.0-66.0) % Immature Gran % (Auto) (0.00-0.4) % Nucleat RBC Rel Count (0.00-0.1) % Eos # (Auto) (0-0.5) x10^3/uL Immature Gran # (Auto) (0.00-0.03) x10^3u/L Absolute Lymphs (auto) (1.0-4.6) x10^3/uL Absolute Monos (auto) (0.0-1.3) x10^3/uL Absolute Nucleated RBC (0.00-0.01) x10^3u/L Lymphocytes % (24.0-44.0) % Monocytes % (0.0-12.0) % Eosinophils % (0.00-5.0) % Basophils % (0.0-0.4) % Absolute Granulocytes (1.4-6.9) x10^3/uL Basophils # (0-0.4) x10^3/uL D-Dimer (0.0-0.50) mg/L Sodium (137-145) mmol/L Potassium (3.5-5.1) mmol/L Chloride (98-107) mmol/L Carbon Dioxide (22-30) mmol/L Anion Gap (5-15) MEQ/L BUN (9-20) mg/dL Creatinine (0.66-1.25) mg/dL Estimated GFR ML/MIN Glucose (74-106) mg/dL POC Glucometer 198 H (74 to 106) mg/dL Hemoglobin A1c (4.5-6.0) % Calcium (8.4-10.2) mg/dL Magnesium (1.6-2.3) mg/dL Total Bilirubin (0.2-1.3) mg/dL AST (17-59) U/L ALT (0-50) U/L Alkaline Phosphatase (38-126) U/L Troponin I 0.017 (0.000-0.034) ng/mL Serum Total Protein (6.3-8.2) g/dL Albumin (3.5-5.0) g/dL Triglycerides 191 H (30-150) mg/dL Cholesterol 233 H (50-200) mg/dL LDL Cholesterol 155 H (30-100) mg/dL HDL Cholesterol 32 L (40-60) mg/dL Heart Disease Risk Ratio 7.2 TSH 3rd Generation 1.930 (0.47-4.68) mIU/L 04/03/23 04/04/23 04/04/23 Range/Units Unknown 04:24 04:24 WBC 9.3 (4.0-10.5) x10^3/uL RBC 5.91 H (4.1-5.6) x10^6/uL Hgb 16.3 (12.5-18.0) g/dL Hct 51.3 H (42-50) % MCV 86.8 (78-100) fL MCH 27.6 (26-32) pg MCHC 31.8 L (32-36) g/dL RDW 13.6 (11.5-14.0) % Plt Count 230 (150-450) x10^3/uL MPV 10.5 (7.5-11.0) fL Gran % 61.3 (36.0-66.0) % Immature Gran % (Auto) 0.4 (0.00-0.4) % Nucleat RBC Rel Count 0.0 (0.00-0.1) % Eos # (Auto) 0.25 (0-0.5) x10^3/uL Immature Gran # (Auto) 0.04 H (0.00-0.03) x10^3u/L Absolute Lymphs (auto) 2.32 (1.0-4.6) x10^3/uL Absolute Monos (auto) 0.91 (0.0-1.3) x10^3/uL Absolute Nucleated RBC 0.00 (0.00-0.01) x10^3u/L Lymphocytes % 24.9 (24.0-44.0) % Monocytes % 9.8 (0.0-12.0) % Eosinophils % 2.7 (0.00-5.0) % Basophils % 0.9 (0.0-0.4) % Absolute Granulocytes 5.73 (1.4-6.9) x10^3/uL Basophils # 0.08 (0-0.4) x10^3/uL D-Dimer (0.0-0.50) mg/L Sodium 136 L (137-145) mmol/L Potassium 3.5 (3.5-5.1) mmol/L Chloride 100 (98-107) mmol/L Carbon Dioxide 27 (22-30) mmol/L Anion Gap 12.9 (5-15) MEQ/L BUN 15 (9-20) mg/dL Creatinine 1.17 (0.66-1.25) mg/dL Estimated GFR 77.9 ML/MIN Glucose 148 H (74-106) mg/dL POC Glucometer (74 to 106) mg/dL Hemoglobin A1c 9.57 H (4.5-6.0) % Calcium 9.5 (8.4-10.2) mg/dL Magnesium (1.6-2.3) mg/dL Total Bilirubin 0.90 (0.2-1.3) mg/dL AST 55 (17-59) U/L ALT 79 H (0-50) U/L Alkaline Phosphatase 76 (38-126) U/L Troponin I (0.000-0.034) ng/mL Serum Total Protein 8.2 (6.3-8.2) g/dL Albumin 4.1 (3.5-5.0) g/dL Triglycerides (30-150) mg/dL Cholesterol (50-200) mg/dL LDL Cholesterol (30-100) mg/dL HDL Cholesterol (40-60) mg/dL Heart Disease Risk Ratio TSH 3rd Generation (0.47-4.68) mIU/L Radiology Exams: Radiology Procedures Category Date Time Status CHEST WITH CONTRAST [CT] Stat Exams 04/03/23 12:39 Completed HEAD WITHOUT CONTRAST [CT] Stat Exams 04/03/23 11:16 Completed Assessment/Plan (1) Hypertensive urgency Current Visit: Yes Status: Acute Assessment & Plan: -nicardipine drip at 10mg/hour -will check urine metanephrine 24 hour urine ?pheochromacytoma/plasma norepinephrine/epinephrine 04/04: -Drip discontinued, BP stable -Will continue w/u for pheochromocytoma may take a week or so for results, advised pt results may be accessed by specialty provider -Advised hypertensive specialist referral Code(s): I16.0 - HYPERTENSIVE URGENCY (2) Chest pain Current Visit: Yes Status: Acute Assessment & Plan: -2 gm Na diet - cardiology consult not available, consider transfer if appropriate -CT chest no acute cardiopulmonary disease -start ASA and NTG sublingual PRN -serial troponin and ECG -Echo reviewed from 01/28/23 showing: EF 55% IMPRESSION: 1) NORMAL CONTRACTILITY OF THE LEFT VENTRICLE. 2) MILD MITRAL REGURGITATION. 3) MILD PULMONIC REGURGITATION. 4) MILD AORTIC ROOT DILATATION -Abominal arterial US from 02/17/23 reviewed showing: Impression: Renal artery sonogram negative for critical stenosis/obstruction. CTA may yield further information if there remains clinical concern. -CBC, CMP, Mg, Phos, lipid panel, HgbA1c in am -continue appropriate baseline home medications -DVT prophylaxis-Lovenox 40 mg SQ daily Code(s): R07.9 - CHEST PAIN, UNSPECIFIED 04/04: -Resolved (3) Diabetes mellitus with insulin therapy Current Visit: Yes Status: Acute Assessment & Plan: -ADA diet -A1c -Continue home glargine insulin regimen (verified 100 u bid), with SSI, hold metformin for now Code(s): E11.9 - TYPE 2 DIABETES MELLITUS WITHOUT COMPLICATIONS; Z79.4 - HALF-WAY (CURRENT) USE OF INSULIN (4) Headache Current Visit: Yes Status: Acute Assessment & Plan: -see hypertensive emergency -supportive measures, pain control Code(s): R51.9 - HEADACHE, UNSPECIFIED (5) Elevated blood protein Current Visit: Yes Status: Acute Assessment & Plan: -serum protein electrophoresis Code(s): I16.0 - HYPERTENSIVE URGENCY (2) Chest pain Current Visit: Yes Status: Acute Code(s): R07.9 - CHEST PAIN, UNSPECIFIED (3) Diabetes mellitus with insulin therapy Current Visit: Yes Status: Acute Code(s): E11.9 - TYPE 2 DIABETES MELLITUS WITHOUT COMPLICATIONS; Z79.4 - HALF-WAY (CURRENT) USE OF INSULIN (4) Headache Current Visit: Yes Status: Acute Code(s): R51.9 - HEADACHE, UNSPECIFIED (5) Elevated blood protein Current Visit: Yes Status: Acute Code(s): R77.9 - ABNORMALITY OF PLASMA PROTEIN, UNSPECIFIED
[2023-04-04] MEDS: Lopressor 50 MG PO SCH ×2 (09:44→21:34)
[2023-04-04] MEDS: ECOTRIN 81 MG PO SCH (09:44)
[2023-04-04] MEDS: Lasix 40 MG PO SCH (09:44)
[2023-04-04] MEDS: NORVASC 5 MG PO SCH (09:45)
[2023-04-04] MEDS: Apresoline 25 MG TABLET PO SCH ×3 (09:46→21:34)
[2023-04-04] MEDS: Cozaar 50 MG PO SCH (09:47)
[2023-04-04] MEDS: Klor Con PO SCH ×2 (09:48→21:33)
[2023-04-04] MEDS: hydroDIURIL 25 MG PO SCH (09:48)
[2023-04-04] MEDS: PERCOCET TABLET 5/325MG PO PRN ×2 (09:48→21:41)
[2023-04-04] MEDS: JARDIANCE PO SCH (09:49)
[2023-04-04] MEDS: CLARITIN 10 MG PO SCH (09:49)
[2023-04-04] MEDS: ENOXAPARIN SODIUM SQ SCH (09:51)
[2023-04-04] MEDS: Lantus Insulin SQ SCH ×2 (09:53→21:33)
[2023-04-04] MEDS ORDERED: NON-FORMULARY ITEM (Amlodipine Besylate [Amlodipine Besylate] 10 MG Tablet) PO SCH (10:00)
[2023-04-04] MEDS ORDERED: Apresoline 25 MG TABLET PO SCH (10:00)
[2023-04-04] MEDS: HUMALOG SQ PRN ×2 (12:38→17:07)
[2023-04-05 04:05] VITALS: TEMP 97.4
[2023-04-05 05:30] LABS: Absolute Neutrophil Ct (ANC) 5.74 x10^3/uL (1.4-6.9); BASOPHIL % 0.8 % (0.0-0.4); Basophil (Absolute #) 0.07 x10^3/uL (0-0.4); Eosinophil % 2.5 % (0.00-5.0); Eosinophil (Absolute #) 0.22 x10^3/uL (0-0.5); Hematocrit 53.9 % (42-50); Hemoglobin 17.3 g/dL (12.5-18.0); IMMATURE GRAN # 0.03 x10^3u/L (0.00-0.03); IMMATURE GRAN % 0.3 % (0.00-0.4); Lymphocyte (Absolute #) 1.63 x10^3/uL (1.0-4.6); Lymphocytes % 18.8 % (24.0-44.0); Mean Cell Volume 86.9 fL (78-100); Mean Corpuscular Hemoglobin 27.9 pg (26-32); Mean Corpuscular Hgb Concent. 32.1 g/dL (32-36); Mean Platelet Volume 10.1 fL (7.5-11.0); Monocyte (Absolute #) 0.99 x10^3/uL (0.0-1.3); Monocytes % 11.4 % (0.0-12.0); Neutrophil % 66.2 % (36.0-66.0); Platelet Count 250 x10^3/uL (150-450); White Blood Count 8.7 x10^3/uL (4.0-10.5)
--- NOTE | 2023-04-05 05:45 | PCM.DS ---
Discharge Summary Date of Admission: 04/03/23 15:26 Date of Discharge: 04/05/23 Admitting Physician: MARC BILLS MD Primary Care Provider: LISBETH PARK Allergies Allergies morphine Adverse Reaction (Severe, Verified 04/03/23 11:10) aggressive/angry Hospital Summary - Hospital Course Hospital Course: is a 47 year old male with a pmhx of morbid obesity, HTN, EARL, insulin dependent diabetes, DDD , and chronic angina who presented to ED 04/03/23 with complaints of a headache and persistent hypertension BP max 220/145. He denies vision changes, heart palpitations, shortness of breath, or dizziness. Patient states that he has been under the care of his PCP Dr. Park and Dr. Carie Ryan for the past several months for management of his hypertension and has been prescribed multiple medications. He has underwent cardiac catherization, renal artery doppler, and abdominal arterial us which have all come back unremarkable. Patient states that his blood pressure has been consistently >195 systolic and >100 diastolic for several months despite medication changes. He additionally reports that he had severe substernal/non-radiating chest pain yesterday with associated diaphoresis. Later he developed a headache which prompted him to check his blood pressure which was more elevated more diastolically than normal. In ED patient presented tachycardic and hypertensive with BP at 222/141. CT head with no acute findings. CT chest with no obvious PE, incidental hiatal hernia, fatty liver, and nonobstructing right renal stone, as well as bilateral renal cysts. EKG with sinus tachycardia no cute ischemic changes. Lab findings remarkable for elevated Ddimer at 0.53, sodium at 136, GAP at 15.3, blood glucose level at 296, AST at 66, ALT at 78, serum protein at 8.8. Patient was given labetalol in ED, patient admitted for hypertensive urgency, transferred to ICU and started on nicardipine drip with noted improvement in BP and later disco ntinued. Blood pressure has remained stable. Amlodipine has been reduced to 5mg daily. Hydralazine increased to 100mg TID. Lasix has been discontinued. Patient has been referred to a Hypertensive specialist as OP, catecholamine levels/pheochromocytoma testing is pending. Patient is stable and ready for discharge with close follow up. Discharge Note New Diagnosis: Hypertensive Urgency New Medications:Amlodipine has been reduced to 5mg daily. Hydralazine increased to 100mg TID. Lasix has been discontinued Follow Up: Hypertensive specialist/pcp/cards/neph Results pending: pheochromocytoma panel Latest Assessment & Plan (1) Hypertensive urgency Current Visit: Yes Status: Acute Assessment & Plan: -nicardipine drip at 10mg/hour -will check urine metanephrine 24 hour urine ?pheochromacytoma/plasma norepinephrine/epinephrine 04/04: -Drip discontinued, BP stable -Will continue w/u for pheochromocytoma may take a week or so for results, advised pt results may be accessed by specialty provider -Advised hypertensive specialist referral Code(s): I16.0 - HYPERTENSIVE URGENCY (2) Chest pain Current Visit: Yes Status: Acute Assessment & Plan: -2 gm Na diet - cardiology consult not available, consider transfer if appropriate -CT chest no acute cardiopulmonary disease -start ASA and NTG sublingual PRN -serial troponin and ECG -Echo reviewed from 01/28/23 showing: EF 55% IMPRESSION: 1) NORMAL CONTRACTILITY OF THE LEFT VENTRICLE. 2) MILD MITRAL REGURGITATION. 3) MILD PULMONIC REGURGITATION. 4) MILD AORTIC ROOT DILATATION -Abominal arterial US from 02/17/23 reviewed showing: Impression: Renal artery sonogram negative for critical stenosis/obstruction. CTA may yield further information if there remains clinical concern. -CBC, CMP, Mg, Phos, lipid panel, HgbA1c in am -continue appropriate baseline home medications -DVT prophylaxis-Lovenox 40 mg SQ daily Code(s): R07.9 - CHEST PAIN, UNSPECIFIED 04/04: -Resolved (3) Diabetes mellitus with insulin therapy Current Visit: Yes Status: Acute Assessment & Plan: -ADA diet -A1c -Continue home glargine insulin regimen (verified 100 u bid), with SSI, hold metformin for now Code(s): E11.9 - TYPE 2 DIABETES MELLITUS WITHOUT COMPLICATIONS; Z79.4 - GREETER (CURRENT) USE OF INSULIN (4) Headache Current Visit: Yes Status: Acute Assessment & Plan: -see hypertensive emergency -supportive measures, pain control Code(s): R51.9 - HEADACHE, UNSPECIFIED (5) Elevated blood protein Current Visit: Yes Status: Acute Assessment & Plan: -serum protein electrophoresis Code(s): I16.0 - HYPERTENSIVE URGENCY I spent 35 minutes [id number] with the patient on the day of discharge performing discharge exam, discussing hospital stay and discharge instructions with patient and caregivers, preparation of discharge records, prescriptions & referral forms and addressing any questions/concerns the patient had as documented above. - Vitals & Intake/Output Vital Signs: Vital Signs Temperature 97.4 F 04/05/23 04:00 Pulse Rate 84 04/05/23 04:00 Respiratory Rate 20 04/05/23 04:00 Blood Pressure 144/92 04/05/23 04:00 O2 Sat by Pulse Oximetry 96 04/05/23 04:00 Intake & Output: Intake & Output 04/02/23 04/03/23 04/04/23 04/05/23 11:59 11:59 11:59 11:59 Intake Total 1080 1440 Output Total 700 4000 Balance 380 -2560 Weight 172.365 kg 178.9 kg - Lab Result Diagrams: 04/05/23 05:13 04/05/23 05:13 Lab Results-Last 24 Hrs: Lab Results-Last 24 Hours 04/04/23 04/04/23 04/04/23 Range/Units 07:25 11:43 16:37 POC Glucometer 134 H 273 H 167 H (74 to 106) mg/dL 04/04/23 Range/Units 21:09 POC Glucometer 153 H (74 to 106) mg/dL Micro Results-Entire Visit: Accuchecks Date 04/04/23 Date 04/04/23 Date 04/04/23 Time 16:42 Time 11:49 Time 07:29 - Radiology Exams Ordered Rad Exams-Entire Visit: Radiology Procedures Category Date Time Status CHEST WITH CONTRAST [CT] Stat Exams 04/03/23 12:39 Completed HEAD WITHOUT CONTRAST [CT] Stat Exams 04/03/23 11:16 Completed - Procedures and Test Procedures and Tests throughout Hospitalization: Therapy Orders & Screens 04/03/23 15:30 EKG REPEAT IN AM Comment: 04/03/23 23:13 BiPap/CPAP ROUTINE Comment: Diagnosis: Hypertensive emergency Discharge Exam General Appearance: no apparent distress Neurologic Exam: alert, oriented x 3, cooperative Eye Exam: PERRL Ears, Nose, Throat Exam: normal ENT inspection Neck Exam: normal inspection Respiratory Exam: normal breath sounds, lungs clear Cardiovascular Exam: regular rate/rhythm, normal heart sounds Gastrointestinal/Abdomen Exam: soft, normal bowel sounds Male Genitalia Exam: deferred Rectal Exam: deferred Back Exam: normal inspection Extremity Exam: other (RLE with recent surgical wound/ in boot) Skin Exam: normal color Wound Assessment: Skin/Wound Assessment Wound/Incision Assessment Start: 04/03/23 16:46 Text: Status: Active Freq: Q6H Protocol: Document 04/05/23 02:00 AB (Rec: 04/05/23 02:39 AB [id number]) Wound/Incision Assessment Right Distal Toe Wound Assessment Shift Assessment Wound Type Incision Dressing Status Dry & Intact Drainage Amount None Drainage Odor None/Absent Primary Dressing Gauze Roll/Wrap Secondary Dressing Non-Adherent Gauze Pads Comment Unable to assess, covered by dressing, dressing CDI Wound Photo Photo Taken No Final Diagnosis/Problem List - Final Discharge Diagnosis/Problem (1) Hypertensive urgency Current Visit: Yes Status: Acute Code(s): I16.0 - HYPERTENSIVE URGENCY (2) Chest pain Current Visit: Yes Status: Acute Code(s): R07.9 - CHEST PAIN, UNSPECIFIED (3) Diabetes mellitus with insulin therapy Current Visit: Yes Status: Acute Code(s): E11.9 - TYPE 2 DIABETES MELLITUS WITHOUT COMPLICATIONS; Z79.4 - LONG-TERM (CURRENT) USE OF INSULIN (4) Headache Current Visit: Yes Status: Acute Code(s): R51.9 - HEADACHE, UNSPECIFIED (5) Elevated blood protein Current Visit: Yes Status: Acute Code(s): R77.9 - ABNORMALITY OF PLASMA PROTEIN, UNSPECIFIED - Discharge Disposition: Home, Self-Care Condition: Stable Prescriptions: New Hydralazine HCl 100 mg PO TID 30 Days #90 tablet Amlodipine Besylate 5 mg [Norvasc 5 mg] 5 mg PO DAILY 30 Days #30 tablet Oxycodone/APAP 5 mg/325 mg [Percocet Tablet 5/325Mg] 1 tab PO Q4H PRN PRN 3 Days #18 tablet MDD 6 PRN Reason: Pain Continue Dapagliflozin/Metformin HCl [Xigduo Xr 5 mg-1,000 mg Tablet] 1 each PO BID Metoprolol Tartrate 50 mg [Lopressor 50 MG] 100 mg PO BID Fexofenadine HCl 180 mg PO DAILY Losartan/Hydrochlorothiazide [Losartan-Hctz 100-25 mg Tab] 1 each PO DAILY Aspirin 81 mg PO DAILY Isosorbide Mononitrate 60 mg [Imdur 60MG] 120 mg PO DAILY Empagliflozin [Jardiance] 25 mg PO DAILY Insulin Glargine,Hum.rec.anlog [Basaglar Kwikpen U-100] 100 unit SQ BID Sildenafil Citrate 100 mg PO Q12H PRN PRN PRN Reason: erectile disfunction Potassium Chloride 10 meq PO BID Nitroglycerin 0.4 mg Tablet [Nitrostat 0.4 MG Tablet] 0.4 mg SL Q5MIN PRN MR X 3 PRN PRN Reason: Chest Pain Insulin Aspart [NovoLOG Insulin] 0 unit SQ TIDAC Discontinued Amlodipine Besylate 10 mg PO DAILY HydrALAzine HCL 25 MG TAB [Apresoline 25 MG TABLET] 25 mg PO DAILY Furosemide [Lasix] 40 mg PO BID Follow up with: LISBETH PARK MD [Primary Care Provider] - 04/11/23 11:00 am WILDER EDEN MD [NON-STAFF PHY W/O PRIVILEGES] - Office will call patient
[2023-04-05 07:08] LABS: ALBUMIN 4.2 g/dL (3.5-5.0); BILIRUBIN,TOTAL 1.1 mg/dL (0.2-1.3); Calcium 9.6 mg/dL (8.4-10.2); Creatinine 1 1.35 mg/dL (0.66-1.25); EST GLOMERULAR FILTRATION RATE 65.6 ML/MIN; Total Protein 8.5 g/dL (6.3-8.2)
[2023-04-05 07:10] LABS: Potassium 3.5 mmol/L (3.5-5.1)
[2023-04-05 07:16] LABS: ANION GAP 12.5 MEQ/L (5-15)
[2023-04-05] MEDS: Lantus Insulin SQ SCH (10:25)
[2023-04-05] MEDS: ENOXAPARIN SODIUM SQ SCH (10:26)
[2023-04-05] MEDS: ECOTRIN 81 MG PO SCH (10:29)
[2023-04-05] MEDS: Apresoline 25 MG TABLET PO SCH (10:30)
[2023-04-05] MEDS: Cozaar 50 MG PO SCH (10:31)
[2023-04-05] MEDS: hydroDIURIL 25 MG PO SCH (10:31)
[2023-04-05] MEDS: Lopressor 50 MG PO SCH (10:31)
[2023-04-05] MEDS: Klor Con PO SCH (10:31)
[2023-04-05] MEDS: NORVASC 5 MG PO SCH (10:32)
[2023-04-05] MEDS: CLARITIN 10 MG PO SCH (10:32)
[2023-04-05] MEDS: JARDIANCE PO SCH (10:33)
[2023-04-05 11:25] VITALS: BP 137/82; PULSE 96; RESP 19; O2SAT 100
[2023-04-05] MEDS: HUMALOG SQ PRN (12:13)
[2023-04-08 15:08] LABS: Albumin 3.5 g/dL (2.9-4.4); Alpha-1-Globulin 0.2 g/dL (0.0-0.4); Alpha-2-Globulin 0.8 g/dL (0.4-1.0); Gamma Globulin 1.5 g/dL (0.4-1.8); Protein, Total 7.8 g/dL (6.0-8.5)
== END 2023-04-05 13:11 | disposition home or self-care (01) ==
LOC: ED 11:01 → MED SURG 15:26 → INTOOBSV 15:26 → OBSVTOIN 15:26 → ICU 16:58
PROVIDERS: ADMIT Internal Medicine; ATTEND Internal Medicine
DX: I16.0 Hypertensive urgency (principal); R07.9 Chest pain, unspecified; E11.9 Type 2 diabetes mellitus without complications; R51.9 Headache, unspecified; R77.9 Abnormality of plasma protein, unspecified; I10 Essential (primary) hypertension; E66.9 Obesity, unspecified; K44.9 Diaphragmatic hernia without obstruction or gangrene; Z79.899 Other long term (current) drug therapy; Z20.828 Contact with and (suspected) exposure to other viral communicable diseases; Z79.4 Long term (current) use of insulin
CPT/HCPCS: 36000; 36415; 70450; 71260; 80053; 80061; 82384; 82570; 82947; 83036; 83521; 83721; 83735; 83835; 84165; 84443; 84484; 84585; 85025; 85379; 93005; 93041; 93268; 94660; 94760; 96374; 96376; 99285; 99291; G0378; Q3014; J1650; J1817; A9270-GY

== ENCOUNTER 2024-08-24 06:19 | Day surgery (SDC) | payer BC ==
[2024-08-24] MEDS ORDERED: Xylocaine 1% Vial 30 ML PF IJ ONE (06:20)
[2024-08-24] MEDS ORDERED: Marcaine Mpf 0.5% Vial 30 Ml IJ ONE (06:20)
[2024-08-24] MEDS ORDERED: Lactated Ringers 1,000 ML IV ONE (07:21)
[2024-08-24] MEDS ORDERED: CEFAZOLIN 2 GM/100 ML NaCl 2 GM/100 ML IVPB IV ONE (07:25)
[2024-08-24 07:30] VITALS: RESP 16
[2024-08-24] MEDS: CEFAZOLIN 2 GM/100 ML NaCl 2 GM/100 ML IVPB IV SCH (07:30)
[2024-08-24] MEDS: Lactated Ringers 1,000 ML IV SCH (07:31)
[2024-08-24 07:38] LABS: Hematocrit 32.5 % (40.1-51.0); Hemoglobin 10.6 g/dL (13.7-17.5); Mean Cell Volume 88.8 fL (79.0-92.2); Mean Corpuscular Hgb Concent. 32.6 g/dL (32.3-36.5); Mean Platelet Volume 10.5 fL (9.4-12.4); Platelet Count 199 x10^3/uL (163-337); Red Blood Count 3.66 x10^6/uL (4.63-6.08); Red Cell Distribution Width 13.1 % (11.6-14.4); White Blood Count 11.3 x10^3/uL (4.23-9.07)
[2024-08-24 07:53] LABS: ALBUMIN 3.7 g/dL (3.5-5.0); ANION GAP 14.7 MEQ/L (5-15); BILIRUBIN,TOTAL 0.5 mg/dL (0.2-1.3); Calcium 9.2 mg/dL (8.4-10.2); Creatinine 1 0.77 mg/dL (0.66-1.25); EST GLOMERULAR FILTRATION RATE 110.4 ML/MIN; Potassium 4.6 mmol/L (3.5-5.1); Total Protein 6.7 g/dL (6.3-8.2)
--- NOTE | 2024-08-24 11:04 | XRAY ---
Indication: Right 1st IP joint arthrodesis, 2nd hammertoe correction, and 2nd metatarsal Carmen osteotomy. Intraoperative fluoroscopy right for 2 minutes 33 seconds. 14 digital spot images submitted for interpretation ultimately demonstrates 1st/2nd toe arthrodesis and 2nd metatarsal head Carmen osteotomy all with intact screws. Correlate with operative findings/report.
[2024-08-24 11:26] VITALS: BP 113/72; PULSE 66; TEMP 98.3; O2SAT 97
--- NOTE | 2024-08-24 12:50 | XRAY ---
2 minutes and 33 seconds of fluoroscopy were used in surgery for an interphalangeal arthrodesis of hallux, hammertoe correction of 2nd toe, yael osteotomy of the 2nd metatarsal head all on the right foot.
--- NOTE | 2024-08-25 11:20 | OP ---
SURGERY DATE/TIME: 08/24/2024 [id number] PREOPERATIVE DIAGNOSES: 1) Diabetes mellitus, uncontrolled. 2) Diabetic peripheral neuropathy. 3) Hallux malleolus. 4) Hammer toe, 2 through 5. 5) Metatarsal deformity. 6) History of diabetic foot ulcer. POSTOPERATIVE DIAGNOSES: 1) Diabetes mellitus, uncontrolled. 2) Diabetic peripheral neuropathy. 3) Hallux malleolus. 4) Hammer toe, 2 through 5. 5) Metatarsal deformity. 6) History of diabetic foot ulcer. PROCEDURES: 1) Hallux interphalangeal joint arthrodesis with deformity correction, valgus at the level of the interphalangeal joint. 2) Carmen osteotomy, second metatarsal. 3) Hammer toe correction at the level of distal interphalangeal joint and proximal interphalangeal joint of the second digit. SURGEON: Naveed Alfaro DPM ASSISTANTS: SMITHA Riggs and Parviz Angeles NP-Ashley ANESTHESIA: Local. HEMOSTASIS: A pressure dressing. QUANTITATIVE BLOOD LOSS: Approximately 15 mL. MATERIALS: A 4-0 Monocryl, 3-0 nylon, a 4.0 x 40 VPC screw with StaGraft Plus, a 2.0 x 14-mm partially threaded headed screw for the Carmen osteotomy and then a 3.0 x 40 VPC screw for the second hammer toe. INJECTABLES: 13 mL of a 1:1 mixture of 1% lidocaine plain and 0.5% bupivacaine plain injected in a Corral and metatarsal block type fashion. INDICATIONS: The patient is a very pleasant 49-year-old male, very well known to my service for multiple diabetic foot ulcers that have healed without subsequent issue. At this time, patient recently had arthroplasty of the hallux in order to heal an interphalangeal joint ulcer that developed at the medial aspect of the IPJ. Once this healed up, he did develop a little bit of hallux malleolus secondary to the shortening of the digit. As a result, he did fall into a slight valgus angulation at the level of the IPJ. Subsequently, he has had some deformity and some arthritic changes to the second digit which has resulted in a claw toe to the level of the DIPJ and the PIPJ as well as the dorsiflexion contracture at the level of the MPJ of the second digit of the right foot. From that standpoint, the patient did have an ulcer that developed as a result of elongated toenail and secondary to his neuropathy. This led to a full-thickness ulceration that required a secondary closure of the wound. The patient was presented options, and patient would like to proceed with a reconstruction of these toes secondary to the fact that he does have peripheral neuropathy, and he cannot control the pain or the wound development if it is something that he cannot feel. In fixing the deformity, we will reduce the risk of proceeding with ongoing wounds and complications as a result of wound healing. The patient has been made aware of all risks, complications, and benefits of surgical intervention at this time, including, but not limited to, infection, hematoma, seroma, possibility of delayed wound healing, non-wound healing, and possible need for further surgical intervention at a later date. No guarantees were provided as to the outcome of surgical intervention. Plenty of time was allowed for the patient to ask questions, which were answered to his apparent satisfaction. It is at this time we decided to proceed. DESCRIPTION OF PROCEDURE AND FINDINGS: The patient was brought into the operating room and placed on the operating room table in the supine position. At this time, the right lower extremity was prepped and draped in typical sterile fashion and lowered onto the surgical field. Attention was directed under fluoroscopic guidance to the distal interphalangeal joint of the hallux where a transverse incision was made over the knuckle. Once this incision was carried out, this was carried down to the distal interphalangeal joint. This was carried down to the level of the previous arthroplasty site where a Rongeur was utilized to remove any remaining scar tissue. An 18 mm sagittal saw was utilized to make a wedge resection out of the base of the proximal phalanx and the distal phalanx to act to bring the toe from a valgus position into a more rectus position. Once this achieved, copious amounts of sterile saline were utilized to flush the surgical site. A 2 mm drill was utilized to fenestrate, and then osteotome and mallet were utilized to fish scale the deep bone edges. Once this was achieved, a K-wire was then anterograded through the distal phalanx and the retrograded into the proximal phalanx. Once position was deemed to be secure, a 4.0 x 40 VPC screw was then introduced. Once checking the position, there were some areas where there was gapping and 2 mL StaGraft Plus was then utilized to pack this into the deficit of the lateral cortex of the wound of the bone. From that standpoint, we moved onto the wire Carmen osteotomy where a 15-blade was utilized to make an incision down to the level of the metatarsal head. Under fluoroscopic guidance the extensor tendon was then identified, and a Z-lengthening tenotomy was performed. The metatarsal head was identified, and then a J-stroke capsulotomy of the medial and lateral collateral ligaments was performed. An 18 mm sagittal saw was utilized to create the Carmen osteotomy perpendicular with the weightbearing surface, pushing this metatarsal head back by approximately 4 mm. This dropped the proximal phalanx into a plane in a similar fashion when the foot was loaded to the surrounding toes. From that standpoint, the Carmen osteotomy was then pinned utilizing a K-wire, and then a 2.0 x 14-mm partially threaded headed screw was then introduced, and then the overhang of the second MPJ was then resected. Following this, a linear incision was made over the dorsal aspect of the second digit where the proximal interphalangeal joint and the distal interphalangeal joint was then resected. Once this was resected, the position was then assessed and deemed to be adequate. Partial resection was made at the level of the medial aspect of the proximal interphalangeal joint with a larger pie wedge cut out of the lateral in order to correct for the varus position of the toe. At this time, a K-wire was then anterograded down the tip of the middle and distal phalanx and then retrograded into the base of the proximal phalanx in the appropriate clinical position. This did scuff a little bit of the medial cortex of the proximal phalanx; however, I checked under lateral and AP view and this was deemed to be all intramedullary and adequate position. A 3.0 x 40 VPC screw was then introduced into distal tip of the toe and secured with excellent compression. Following this, copious amounts of sterile saline were utilized to flush the surgical site. Monocryl 4-0 was then utilized to close the subcutaneous skin edges in a simple interrupted buried type fashion, and then 3-0 nylon was utilized in a horizontal mattress type fashion to coapt the skin edges. A dressing consisting of Betadine, Adaptic, 4 x 4, Kerlix, ABD, and Masoud was applied to the patient's right lower extremity. The patient was then returned to the PACU with vital signs stable and vascular status intact. Patient handled the anesthesia as well as the procedure without significant complication. Postoperative orders as indicated in the patient's discharge chart.
== END 2024-08-24 11:44 | disposition home or self-care (01) ==
LOC: SDC 06:19
PROVIDERS: ATTEND Podiatrist Foot & Ankle Surgery
DX: M20.31 Hallux varus (acquired), right foot (principal); E11.42 Type 2 diabetes mellitus with diabetic polyneuropathy; E11.65 Type 2 diabetes mellitus with hyperglycemia; M20.41 Other hammer toe(s) (acquired), right foot; M21.6X1 Other acquired deformities of right foot; Z86.31 Personal history of diabetic foot ulcer
CPT/HCPCS: 28285; 28308; 28755; 36415; 73630; 76000; 80053; 85027; C1713; C1762; J0690